=== PATIENT | male | born 1935 | race Caucasian/White ===

== ENCOUNTER 2019-01-28 07:58 | Day surgery (SDC) | payer MEDICARE, OTHER ==
[2019-01-28] MEDS ORDERED: Sodium Chloride 0.9% 1,000 ML IV SCH (08:15)
[2019-01-28] MEDS ORDERED: Moxifloxacin 0.5% Ophth Soln 3 ML Bottle EYELF SCH (08:15)
[2019-01-28] MEDS ORDERED: Sodium Chloride 0.9% 10 ML Syringe FLUSH PRN (08:15)
[2019-01-28] MEDS: Phenylephrine 10% Ophth Soln 5 ML Bot EYELF SCH ×3 (08:19→08:43)
[2019-01-28] MEDS: Cyclopentolate 1% Opth Soln 2 ML Bottle EYELF SCH ×3 (08:25→08:49)
[2019-01-28] MEDS ORDERED: Balanced Salt Solution Ophth Irrig 15 ML Bottle EYELF ONE (09:40)
[2019-01-28] MEDS ORDERED: Water For Irrigation,Sterile 1,500 ML Container IRR ONE (09:40)
[2019-01-28] MEDS ORDERED: EPINEPHrine 1 MG/ML SDV ONE (09:41)
[2019-01-28] MEDS ORDERED: Dexamethasone/Neomycin/Polymyxin B Ophth Oint 3.5 GM Tube EYELF ONE (09:41)
[2019-01-28] MEDS ORDERED: Carbachol 0.01% Intraocular 1.5 ML Vial EYELF ONE (09:41)
[2019-01-28] MEDS ORDERED: Balanced Salt Solution Plus Ophth Irrig 500 ML Bottle IOCULAR ONE (09:41)
[2019-01-28] MEDS ORDERED: Lidocaine 1% 10 ML MDV INJECT ONE (09:42)
[2019-01-28] MEDS ORDERED: Lidocaine 2% with EPINEPHrine 1:100,000 20 ML MDV INJECT ONE (09:42)
[2019-01-28] MEDS ORDERED: Tetracaine HCl/PF 0.5% 4 ML Bottle EYEBOTH ONE (09:43)
[2019-01-28] MEDS ORDERED: Hyaluronate Sodium 1% 0.85 ML Syringe IOCULAR ONE (09:43)
[2019-01-28 10:04] VITALS: BP 146/69
--- NOTE | 2019-01-29 10:07 | OR ---
DATE OF SURGERY: 01/28/2019 SURGEON: Kahlil Best MD PREOPERATIVE DIAGNOSIS: Cataract, left eye. POSTOPERATIVE DIAGNOSIS: Cataract, left eye. OPERATION PERFORMED: Phacoemulsification with posterior chamber lens insertion, left eye. HISTORY: The patient presents at this time with an increasing amount of difficulty seeing to drive. The vision for the left eye is 20/80 -1. The left lens has a 3+ nuclear sclerosis with 2+ posterior subcapsular cataract and a 2+ cortical change. This eye has a combined cataract and a cataract of aging. FINDINGS: The patient was taken to the operating room where appropriate anesthesia, sedation and monitoring were provided. A retrobulbar block was given on the left side. The eye was massaged and was found to be appropriately soft. The eye and eyelids were then prepped and draped in the usual sterile manner. A lid speculum was placed. A micro sharp blade was used to enter the anterior chamber inside the limbus inferior-temporally. Xylocaine was irrigated into the eye at this site. Healon was irrigated into the eye through this site. Then using a 2.85 mm corneal blade an entry was made into the anterior chamber just inside the limbus temporally. Healon was again irrigated into the eye. Then using a cystitome, the anterior capsulorrhexis was created. The lens nucleus was hydrodissected using a 27 gauge cannula and balanced salt solution. The phacoemulsification unit was introduced through the temporal site and the Stef spatula through the inferior temporal site. In so doing, the lens nucleus was phacoemulsified. The cortical fragments of the lens were removed using the irrigation aspiration unit. The posterior capsule was polished. Healon was irrigated into the eye. The posterior chamber lens was inserted and rotated into position inside the capsular bag. The Healon was irrigated out of the eye. Miostat was irrigated into the eye and the pupil rounded nicely. A single interrupted 10-0 Nylon suture was placed through the temporal corneal incision site. Balanced salt solution was irrigated into the eye. The wound was tested and found to be tight. Maxitrol ointment was placed into the patient's left eye. The eyelids were closed and an eye patch and weller shield were placed. The patient left the operating room in good condition. /[id number]/MODL
== END 2019-01-28 10:25 | disposition home or self-care (01) ==
LOC: KA.SDS 07:58
PROVIDERS: ATTEND Ophthalmology
DX: H25.812 Combined forms of age-related cataract, left eye (principal); E11.42 Type 2 diabetes mellitus with diabetic polyneuropathy; I12.9 Hypertensive chronic kidney disease with stage 1 through stage 4 chronic kidney disease, or unspecified chronic kidney disease; E11.22 Type 2 diabetes mellitus with diabetic chronic kidney disease; N18.3 Chronic kidney disease, stage 3 (moderate); E66.9 Obesity, unspecified; Z68.29 Body mass index [BMI] 29.0-29.9, adult; E78.5 Hyperlipidemia, unspecified; I25.10 Atherosclerotic heart disease of native coronary artery without angina pectoris; Z79.82 Long term (current) use of aspirin; Z79.899 Other long term (current) drug therapy; Z87.891 Personal history of nicotine dependence
CPT/HCPCS: 00142; 82962; A9270-GY; C1780; J0171; J2001; J7030

== ENCOUNTER 2019-07-01 06:02 | Day surgery (SDC) | payer MEDICARE, OTHER ==
[~2019-07-01 06:02] MED LIST: Moxifloxacin 0.5% Ophth Soln 3 ML Bottle EYELF SCH; Moxifloxacin 0.5% Ophth Soln 3 ML Bottle EYERT ONE; Sodium Chloride 0.9% 10 ML Syringe FLUSH PRN
[2019-07-01] MEDS: Phenylephrine 10% Ophth Soln 5 ML Bot EYERT SCH ×3 (06:16→06:47)
[2019-07-01] MEDS: Cyclopentolate 1% Opth Soln 2 ML Bottle EYERT SCH ×3 (06:21→06:52)
[2019-07-01] MEDS ORDERED: Sodium Chloride 0.9% 1,000 ML IV SCH (06:30)
[2019-07-01] MEDS ORDERED: Water For Irrigation,Sterile 1,500 ML Container IRR ONE (08:04)
[2019-07-01] MEDS ORDERED: Balanced Salt Solution Ophth Irrig 15 ML Bottle EYERT ONE (08:05)
[2019-07-01] MEDS ORDERED: Dexamethasone/Neomycin/Polymyxin B Ophth Oint 3.5 GM Tube EYERT ONE (08:05)
[2019-07-01] MEDS ORDERED: Balanced Salt Solution Plus Ophth Irrig 500 ML Bottle IOCULAR ONE (08:05)
[2019-07-01] MEDS ORDERED: Carbachol 0.01% Intraocular 1.5 ML Vial EYERT ONE (08:05)
[2019-07-01] MEDS ORDERED: EPINEPHrine 1 MG/1 ML Amp ONE (08:06)
[2019-07-01] MEDS ORDERED: Lidocaine 1% 10 ML MDV INJECT ONE (08:06)
[2019-07-01] MEDS ORDERED: Hyaluronate Sodium 1% 0.85 ML Syringe IOCULAR ONE ×2 (08:06)
[2019-07-01] MEDS ORDERED: Lidocaine 2% with EPINEPHrine 1:100,000 20 ML MDV INJECT ONE (08:06)
[2019-07-01] MEDS ORDERED: Tetracaine HCl/PF 0.5% 4 ML Bottle EYEBOTH ONE (08:06)
[2019-07-01 08:55] VITALS: BP 125/61; PULSE 66
--- NOTE | 2019-07-01 16:04 | OR ---
DATE OF SURGERY: 07/01/2019 SURGEON: Kahlil Best MD PREOPERATIVE DIAGNOSIS: Cataract, right eye. POSTOPERATIVE DIAGNOSIS: Cataract, right eye. OPERATION PERFORMED: Phacoemulsification with posterior chamber lens insertion, right eye. HISTORY: The patient presents at this time with an increasing amount of difficulty using the right eye as he attempts to read. The vision in the right eye is 22/100. The right lens has a 3+ nuclear sclerosis, a 2+ posterior subcapsular cataract, and a 2+ cortical change. This eye has a combined cataract and a cataract of aging. FINDINGS: The patient was taken to the operating room where appropriate anesthesia, sedation and monitoring were provided. A retrobulbar block was given on the right side. The eye was massaged and was found to be appropriately soft. The eye and eyelids were then prepped and draped in the usual sterile manner. A lid speculum was placed. A micro sharp blade was used to enter the anterior chamber inside the limbus superior-temporally. Xylocaine was irrigated into the eye at this site. Healon was irrigated into the eye through this site. Then using a 2.85 mm corneal blade an entry was made into the anterior chamber just inside the limbus temporally. Healon was again irrigated into the eye. Then using a cystitome, the anterior capsulorrhexis was created. The lens nucleus was hydrodissected using a 27 gauge cannula and balanced salt solution. The phacoemulsification unit was introduced through the temporal site and the Stef spatula through the superior temporal site. In so doing, the lens nucleus was phacoemulsified. The cortical fragments of the lens were removed using the irrigation aspiration unit. The posterior capsule was polished. Healon was irrigated into the eye. The posterior chamber lens was inserted and rotated into position inside the capsular bag. The Healon was irrigated out of the eye. Miostat was irrigated into the eye and the pupil rounded nicely. A single interrupted 10-0 nylon suture was placed through the temporal corneal incision site and an additional interrupted 10-0 nylon suture was placed through the superotemporal incision site. Balanced salt solution was irrigated into the eye. The wound was tested and found to be tight. Maxitrol ointment was placed into the patient's right eye. The eyelids were closed and an eye patch and weller shield were placed. The patient left the operating room in good condition. /[id number]/MODL
[2019-07-02] MEDS ORDERED: Sodium Chloride 0.9% 1,000 ML IV SCH (06:00)
== END 2019-07-01 09:03 | disposition home or self-care (01) ==
LOC: KA.SDS 06:02
PROVIDERS: ATTEND Ophthalmology
DX: E11.36 Type 2 diabetes mellitus with diabetic cataract (principal); H25.811 Combined forms of age-related cataract, right eye; E11.42 Type 2 diabetes mellitus with diabetic polyneuropathy; I25.10 Atherosclerotic heart disease of native coronary artery without angina pectoris; I25.2 Old myocardial infarction; I12.9 Hypertensive chronic kidney disease with stage 1 through stage 4 chronic kidney disease, or unspecified chronic kidney disease; E11.22 Type 2 diabetes mellitus with diabetic chronic kidney disease; N18.3 Chronic kidney disease, stage 3 (moderate); N40.1 Benign prostatic hyperplasia with lower urinary tract symptoms; N13.8 Other obstructive and reflux uropathy; E78.49 Other hyperlipidemia; E66.9 Obesity, unspecified; Z68.27 Body mass index [BMI] 27.0-27.9, adult; Z87.891 Personal history of nicotine dependence; Z79.4 Long term (current) use of insulin; Z79.51 Long term (current) use of inhaled steroids; Z79.82 Long term (current) use of aspirin; Z79.899 Other long term (current) drug therapy
CPT/HCPCS: 00142; 66984; 82962; A9270; J0171; J2001; J7030; V2632

== ENCOUNTER 2020-11-29 07:52 | Day surgery (SDC) | payer MEDICARE, OTHER ==
[2020-11-29] MEDS: Sodium Chloride 0.9% 1,000 ML IV SCH (08:15)
[2020-11-29] MEDS: 50% Dextrose in Water 50 ML Syringe IVPUSH ONE (08:32)
[2020-11-29] MEDS: Sodium Chloride 0.9% 10 ML Syringe FLUSH PRN (08:33)
[2020-11-29] MEDS ORDERED: Propofol 200 MG/20 ML SDV ONE (08:54)
--- NOTE | 2020-11-29 10:37 | PCM.PRNOTE ---
- Free Text/Narrative Note: PROCEDURE PERFORMED: Colonoscopy with biopsy PRE-PROCEDURE DIAGNOSIS/INDICATION FOR PROCEDURE: Chronic diarrhea, +FOBT, +calprotectin CONSENT: Informed consent was obtained prior to the procedure after discussion of the risks (including pain, bleeding, infection, perforation, missed polyps, inability to completely remove polyps or complete procedure necessitating repeat colonoscopy, adverse reaction to anesthesia, cardiovascular event), benefits and alternatives and expected outcomes. The patient expressed understanding and wished to proceed. Verbal consent given and consent form signed. PROCEDURAL PAUSE: Completed SEDATION: Per anesthesia DESCRIPTION OF PROCEDURE: Patient was placed in the left lateral decubitus position. After adequate sedation and anesthetic was administered, a rectal exam was performed revealing poor sphincter tone, but no other overt abnormalities. A lubricated Olympus Vid eo Colonoscope was inserted into the rectum and air insufflation was performed. The colonoscope was advanced through the rectum, sigmoid, descending, transverse, and ascending colon without complication, but with some difficulty in the sigmoid colon due to numerous diverticula and moderate retained stool. The cecum was reached and the ileocecal valve as well as the appendiceal orifice were identified and pictorially documented. After adequate visualization of the cecum, the scope was withdrawn, giving 360-degree views of the colonic mucosa and retroflexion was performed in the rectum with the following findings noted: Ileocecal valve: Normal Cecum: One <5mm polyp completely removed with cold snare Ascending colon / Hepatic flexure: One 5mm polyp at 85cm completely removed with hot snare; Moderately inflamed mucosa, which was biopsied in multiple locations with cold forceps Transverse colon: One 5mm polyp at 80cm completely removed with hot snare Splenic flexure: Normal Descending colon: Mildly inflamed mucosa, which was biopsied in multiple locations with cold forceps Sigmoid colon: Moderate-severe diverticulosis without overt evidence of inflammation or bleeding Rectum: Mildly inflamed mucosa, which was biopsied in multiple locations with cold forceps All polypectomy and biopsy sites were noted to have subsequent hemostasis. The scope was straightened, air suction performed, and the scope withdrawn without complication. Preparation adequacy [place] Bowel Prep 06/03. IMPRESSION: Colonoscopy performed revealing: - Three polyps as detailed above, with pathology pending - Colitis, most prominent in the right colon, with pathology pending - Moderate-severe diverticulosis - Mild internal hemorrhoids PLAN: Follow-up with the patient in clinic in 7-10 days to review pathology results and make management plan.
[2020-11-29 11:44] VITALS: BP 141/68; PULSE 57
== END 2020-11-29 12:00 | disposition home or self-care (01) ==
LOC: KA.SDS 07:52
PROVIDERS: ATTEND Family Medicine
DX: K52.9 Noninfective gastroenteritis and colitis, unspecified (principal); D12.0 Benign neoplasm of cecum; D12.2 Benign neoplasm of ascending colon; D12.3 Benign neoplasm of transverse colon; K57.30 Diverticulosis of large intestine without perforation or abscess without bleeding; K64.8 Other hemorrhoids; E11.42 Type 2 diabetes mellitus with diabetic polyneuropathy
CPT/HCPCS: 00811; 82962; 88305; J2704; J7030

== ENCOUNTER 2021-09-18 04:15 | Emergency (ER) | payer MEDICARE, OTHER ==
[2021-09-18] MEDS: Sodium Chloride 0.9% 10 ML Syringe FLUSH PRN (05:07)
--- NOTE | 2021-09-18 05:13 | EDM.PDOC ---
ED HPI GENERAL MEDICAL PROBLEM - General Chief Complaint: General Stated Complaint: fall at home Time Seen by Provider: 09/18/21 04:40 Source of Information: Reports: Patient, Family (son) History Limitations: Reports: No Limitations - History of Present Illness INITIAL COMMENTS - FREE TEXT/NARRATIVE: Chong is a very pleasant 85-year-old male who is seen and evaluated by EMS early this morning after they were called to his new apartment complex when Chong fell earlier this morning going to the bathroom and was unable to get up by himself. He does have a history of diabetes on insulin. His blood sugars were low as well as his blood pressure. They were able to stand him up. He was not complaining of any pain or discomfort. He felt a little lightheaded. Patient states to me that his feet are always numb secondary to his diabetes. He lives in his apartment with his . Son is present upon my arrival in the room. He stated that his dad might be a little exhausted as they recently just moved him into the apartment complex yesterday. His blood sugar upon arrival was 47. Our nurse gave him some orange juice and peanut butter toast which he was eating upon my arrival. He is alert, communicative answers questions appropriately. He denies any pain or discomfort. He denies any shortness of breath or chest pain. He denies any headaches. His O2 saturations are on room air at 92% his respirations are 20. Pulse is 75. Blood pressure currently is 113/59. Nontoxic appearing. Patient did mention today when we are trying to get a urine sample that he has had diarrhea symptoms for the past couple of days. Onset: Today Onset Date: 09/18/21 Onset Time: 03:30 Duration: Minutes:, Resolved Prior to Arrival Location: Reports: Generalized Severity: Mild Improves with: Reports: Rest Worsens with: Reports: None Context: Reports: Other (fall at home) Associated Symptoms: Reports: Weakness, Other. Denies: Confusion, Chest Pain, Nausea/Vomiting, Shortness of Breath, Syncope - Related Data Allergies Allergy/AdvReac Type Severity Reaction Status Date / Time No Known Drug Allergies Allergy Cannot Verified 09/18/21 04:48 Remember Home Meds: Home Meds *Tac Aquaphyllic Urea Cream 0.05% 1 applic TOP BID 01/24/19 [History] Aspirin [Halfprin] 81 mg PO DAILY 01/24/19 [History] Insulin Degludec [Tresiba] 78 unit SQ BEDTIME 01/24/19 [History] Cholecalciferol (Vitamin D3) [Vitamin D3] 1,000 unit PO DAILY 06/27/19 [History] Beta-Carotene(A) w/C & E/Min [Prosight] 1 tab PO DAILY 11/25/20 [History] Cetirizine [ZyrTEC] 5 mg PO DAILY 11/25/20 [History] Dulaglutide [Trulicity] 1.5 mg SUBCUT WEEKLY 11/25/20 [History] Pregabalin [Lyrica] 75 mg PO BID 11/25/20 [History] Simvastatin 10 mg PO DAILY 11/25/20 [History] polyethylene glycoL 3350 [MiraLAX] 17 gm PO DAILY 11/25/20 [History] Past Medical History HEENT History: Reports: Cataract, Macular Degeneration, Other (See Below) 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 Dermatologic History: Reports: Other (See Below) Other Dermatologic History: ATOPIC DERMATITIS - Infectious Disease History Infectious Disease History: Reports: Chicken Pox, Measles - Past Surgical History HEENT Surgical History: Reports: Cataract Surgery, Tonsillectomy, Other (See Below) Other HEENT Surgeries/Procedures: panendoscopy Cardiovascular Surgical History: Reports: None GI Surgical History: Reports: Appendectomy Endocrine Surgical History: Reports: None Neurological Surgical History: Reports: None Musculoskeletal Surgical History: Reports: Shoulder Surgery Social & Family History - Family History Family Medical History: No Pertinent Family History HEENT: Reports: None - Caffeine Use Caffeine Use: Reports: Soda Other Caffeine Use: regular - Living Situation & Occupation Living situation: Reports: ED ROS GENERAL - Review of Systems Review Of Systems: See Below Constitutional: Reports: No Symptoms HEENT: Reports: No Symptoms Respiratory: Reports: No Symptoms Cardiovascular: Reports: No Symptoms Endocrine: Reports: Low Glucose GI/Abdominal: Reports: No Symptoms : Reports: No Symptoms Musculoskeletal: Reports: No Symptoms Skin: Reports: Other (Small skin tear on left elbow) Neurological: Reports: Dizziness, Numbness (Both feet secondary to diabetes), Weakness. Denies: Confusion, Syncope, Change in Speech Psychiatric: Reports: No Symptoms Hematologic/Lymphatic: Reports: No Symptoms Immunologic: Reports: No Symptoms ED EXAM, GENERAL - Physical Exam Exam: See Below Exam Limited By: No Limitations General Appearance: Alert, WD/WN, No Apparent Distress Eye Exam: Bilateral Eye: EOMI Ears: Hearing Grossly Normal Nose: Normal Inspection Throat/Mouth: Normal Inspection, Normal Oropharynx, Normal Voice, No Airway Compromise Head: Atraumatic, Normocephalic Neck: Normal Inspection, Supple, Non-Tender, Full Range of Motion Respiratory/Chest: No Respiratory Distress, Lungs Clear, Normal Breath Sounds, No Accessory Muscle Use, Chest Non-Tender Cardiovascular: Normal Peripheral Pulses, Regular Rate, Rhythm Peripheral Pulses: 2+: Carotid (L), Carotid (R), Radial (L), Radial (R), Dorsalis Pedis (L), Dorsalis Pedis (R) GI/Abdominal: Soft, Non-Tender Back Exam: Normal Inspection Extremities: Normal Inspection, Normal Range of Motion, Non-Tender, No Pedal Edema Neurological: Alert, Oriented, No Motor/Sensory Deficits Psychiatric: Normal Affect, Normal Mood Skin Exam: Warm, Dry, Normal Color, No Rash, Other (small skin tear over the left elbow this is been covered with a Band-Aid) Course - Vital Signs Last Recorded V/S: Last Vital Signs Temp 97.7 F 09/18/21 04:17 Pulse 82 09/18/21 05:45 Resp 14 09/18/21 05:45 BP 118/63 09/18/21 05:45 Pulse Ox 92 L 09/18/21 05:45 - Orders/Labs/Meds Orders: Active Orders 24 hr Category Date Time Status Peripheral IV Care [RC] . DIRECTED Care 09/18/21 05:00 Active Sodium Chloride 0.9% [Normal Saline] 500 ml Med 09/18/21 05:15 Active IV .BOLUS Sodium Chloride 0.9% [Saline Flush] Med 09/18/21 05:00 Active 10 ml FLUSH Q8HR PRN Peripheral IV Insertion Adult [OM.PC] Routine Oth 09/18/21 05:00 Ordered Medication Orders Sodium Chloride (Normal Saline) 500 mls @ 1,000 mls/hr IV .BOLUS SHANTELL Last Admin: 09/18/21 05:14 Dose: 1,000 mls/hr Documented by: KIRAN Sodium Chloride (Sodium Chloride 0.9% 10 Ml Syringe) 10 ml FLUSH Q8HR PRN PRN Reason: keep vein open Last Admin: 09/18/21 05:07 Dose: 10 ml Documented by: KIRAN Labs: Laboratory Tests 09/18/21 09/18/21 09/18/21 Range/Units 04:27 05:07 05:07 WBC 16.80 H (5.00-10.00) 10^3/uL RBC 4.51 (4.50-6.00) 10^6/uL Hgb 13.3 (13.0-17.0) g/dL Hct 40.5 (40.0-52.0) % MCV 89.8 (82.0-92.0) fL MCH 29.5 (27.0-31.0) pg MCHC 32.8 (32.0-36.0) g/dL RDW 13.0 (11.5-14.5) % Plt Count 195 (150-400) 10^3/uL MPV 11.8 H (7.4-10.4) fL Immature Gran % (Auto) 0.2 (0.0-5.0) % Neut % (Auto) 74.3 H (50.0-70.0) % Lymph % (Auto) 11.8 L (20.0-40.0) % [place] % (Auto) 10.4 H (2.0-8.0) % Eos % (Auto) 3.2 H (1.0-3.0) % Baso % (Auto) 0.1 (0.0-1.0) % Neut # (Auto) 12.49 H (2.50-7.00) 10^3/uL Lymph # (Auto) 1.98 (1.00-4.00) 10^3/uL Mobile # (Auto) 1.74 H (0.10-0.80) 10^3/uL Eos # (Auto) 0.54 H (0.10-0.30) 10^3/uL Baso # (Auto) 0.02 (0.00-0.10) 10^3/uL Immature Gran # (Auto) 0.03 (0.00-0.50) 10^3/uL Sodium 145 (136-145) mmol/L Potassium 3.8 (3.5-5.1) mmol/L Chloride 108 H (98-107) mmol/L Carbon Dioxide 24.6 (21.0-32.0) mmol/L Anion Gap 16.2 H (5-15) mmol/L BUN 33 H (7-18) mg/dL Creatinine 1.44 H (0.51-1.17) mg/dL Est Cr Clr Drug Dosing 38.49 mL/min Estimated GFR (MDRD) 46 mL/min Glucose 77 (70-140) mg/dL POC Glucose 47 L (70-140) mg/dL Calcium 8.4 L (8.7-10.3) mg/dL Specimen Type Urine Color (YELLOW) Urine Appearance (CLEAR) Urine pH (5.0-9.0) Ur Specific [place] (1.005-1.030) Urine Protein (NEGATIVE) mg/dL Urine Glucose (UA) (NEGATIVE) mg/dL Urine Ketones (NEGATIVE) mg/dL Urine Occult Blood (NEGATIVE) Urine Nitrite (NEGATIVE) Urine Bilirubin (NEGATIVE) Urine Urobilinogen (0.2-1.0) E.U./dL Ur Leukocyte Esterase (NEGATIVE) Urine RBC (0-5) /HPF Urine WBC (0-5) /HPF Ur Epithelial Cells /LPF Urine Bacteria (NONE TO FEW) /HPF 09/18/21 09/18/21 Range/Units 06:10 06:24 WBC (5.00-10.00) 10^3/uL RBC (4.50-6.00) 10^6/uL Hgb (13.0-17.0) g/dL Hct (40.0-52.0) % MCV (82.0-92.0) fL MCH (27.0-31.0) pg MCHC (32.0-36.0) g/dL RDW (11.5-14.5) % Plt Count (150-400) 10^3/uL MPV (7.4-10.4) fL Immature Gran % (Auto) (0.0-5.0) % Neut % (Auto) (50.0-70.0) % Lymph % (Auto) (20.0-40.0) % Mobile % (Auto) (2.0-8.0) % Eos % (Auto) (1.0-3.0) % Baso % (Auto) (0.0-1.0) % Neut # (Auto) (2.50-7.00) 10^3/uL Lymph # (Auto) (1.00-4.00) 10^3/uL Mobile # (Auto) (0.10-0.80) 10^3/uL Eos # (Auto) (0.10-0.30) 10^3/uL Baso # (Auto) (0.00-0.10) 10^3/uL Immature Gran # (Auto) (0.00-0.50) 10^3/uL Sodium (136-145) mmol/L Potassium (3.5-5.1) mmol/L Chloride (98-107) mmol/L Carbon Dioxide (21.0-32.0) mmol/L Anion Gap (5-15) mmol/L BUN (7-18) mg/dL Creatinine (0.51-1.17) mg/dL Est Cr Clr Drug Dosing mL/min Estimated GFR (MDRD) mL/min Glucose (70-140) mg/dL POC Glucose 99 (70-140) mg/dL Calcium (8.7-10.3) mg/dL Specimen Type Urincc Urine Color Yellow (YELLOW) Urine Appearance Clear (CLEAR) Urine pH 5.0 (5.0-9.0) Ur Specific [place] 1.025 (1.005-1.030) Urine Protein Trace H (NEGATIVE) mg/dL Urine Glucose (UA) Negative (NEGATIVE) mg/dL Urine Ketones Negative (NEGATIVE) mg/dL Urine Occult Blood Negative (NEGATIVE) Urine Nitrite Negative (NEGATIVE) Urine Bilirubin Negative (NEGATIVE) Urine Urobilinogen 0.2 (0.2-1.0) E.U./dL Ur Leukocyte Esterase Negative (NEGATIVE) Urine RBC Not seen (0-5) /HPF Urine WBC 0-5 (0-5) /HPF Ur Epithelial Cells Occasional /LPF Urine Bacteria Rare (NONE TO FEW) /HPF Meds: Medications Generic Name Dose Route Start Last Admin Trade Name Юлия PRN Reason Stop Dose Admin Sodium Chloride 500 mls @ 1,000 mls/hr 09/18/21 05:15 09/18/21 05:14 Normal Saline IV 1,000 mls/hr .BOLUS SHANTELL Administration Sodium Chloride 10 ml 09/18/21 05:00 09/18/21 05:07 Sodium Chloride 0.9% 10 Ml Syringe FLUSH 10 ml Q8HR PRN Administration keep vein open Discontinued Medications Generic Name Dose Route Start Last Admin Trade Name Freq PRN Reason Stop Dose Admin Metronidazole 1,000 mg 09/18/21 06:39 Metronidazole 500 Mg Tab PO 09/18/21 06:40 ONETIME ONE - Re-Assessments/Exams Free Text/Narrative Re-Assessment/Exam: 09/18/21 05:20 Patient is eating peanut butter toast and orange juice upon my arrival. IV bolus of 500 mL normal saline was started. Departure - Departure Time of Disposition: 07:00 Disposition: Home, Self-Care 01 Condition: Good Clinical Impression: Neutrophilic leukocytosis, Hypoglycemic event in diabetes Diarrhea Qualifiers: Diarrhea type: unspecified type Qualified Code(s): R19.7 - Diarrhea, unspecified - Discharge Information Instructions: Diarrhea, Adult, Viral Gastroenteritis, Adult Referrals: Ashley Rene NP [Primary Care Provider] - Forms: ED Department Discharge Care Plan Goals: 1. Flagyl 500 mg twice daily for 7 days 2. Encourage to drink plenty of fluids. 3. Would like a follow-up appointment with primary care, Ashley Rene NP this week. Make sure patient's white count is coming down. Sepsis Event Note (ED) - Evaluation Sepsis Screening Result: No Definite Risk - Focused Exam Vital Signs: Vital Signs Temp Pulse Resp BP Pulse Ox 09/18/21 05:45 82 14 118/63 92 L 09/18/21 05:30 81 15 123/63 92 L 09/18/21 05:15 74 16 113/59 L 90 L 09/18/21 05:00 77 16 108/62 93 L 09/18/21 04:45 79 19 108/59 L 90 L 09/18/21 04:30 75 18 107/58 L 90 L 09/18/21 04:17 97.7 F 76 19 106/60 91 L - My Orders Last 24 Hours: My Active Orders 09/18/21 05:00 Peripheral IV Care [RC] . DIRECTED Sodium Chloride 0.9% [Saline Flush] 10 ml FLUSH Q8HR PRN Peripheral IV Insertion Adult [OM.PC] Routine 09/18/21 05:15 Sodium Chloride 0.9% [Normal Saline] 500 ml IV .BOLUS - Assessment/Plan Last 24 Hours: My Active Orders 09/18/21 05:00 Peripheral IV Care [RC] . DIRECTED Sodium Chloride 0.9% [Saline Flush] 10 ml FLUSH Q8HR PRN Peripheral IV Insertion Adult [OM.PC] Routine 09/18/21 05:15 Sodium Chloride 0.9% [Normal Saline] 500 ml IV .BOLUS Assessment:: Diarrhea Leukocytosis, neutrophilic [employer] low blood sugar Plan: 1. Flagyl 500 mg twice daily for 7 days 2. Encourage to drink plenty of fluids. 3. Would like a follow-up appointment with primary care, Ashley Rene NP this week. Make sure patient's white count is coming down.
[2021-09-18] MEDS: Sodium Chloride 0.9% 500 ML IV SCH (05:14)
[2021-09-18 05:48] LABS: ANION GAP 16.2 mmol/L (5-15)
[2021-09-18 06:37] VITALS: BP 118/63; PULSE 82
[2021-09-18] MEDS: metroNIDAZOLE 500 MG Tab PO ONE (06:44)
== END 2021-09-18 07:05 | disposition home or self-care (01) ==
LOC: KA.ED 04:15
DX: S51.012A Laceration without foreign body of left elbow, initial encounter (principal); E11.649 Type 2 diabetes mellitus with hypoglycemia without coma; D72.828 Other elevated white blood cell count; R19.7 Diarrhea, unspecified; I25.10 Atherosclerotic heart disease of native coronary artery without angina pectoris; E78.00 Pure hypercholesterolemia, unspecified; I12.9 Hypertensive chronic kidney disease with stage 1 through stage 4 chronic kidney disease, or unspecified chronic kidney disease; E11.22 Type 2 diabetes mellitus with diabetic chronic kidney disease; N18.30 Chronic kidney disease, stage 3 unspecified; I25.2 Old myocardial infarction; E11.42 Type 2 diabetes mellitus with diabetic polyneuropathy; E66.9 Obesity, unspecified; Z68.26 Body mass index [BMI] 26.0-26.9, adult; Z79.4 Long term (current) use of insulin; Z79.82 Long term (current) use of aspirin; Z79.899 Other long term (current) drug therapy; W18.30XA Fall on same level, unspecified, initial encounter; Y92.009 Unspecified place in unspecified non-institutional (private) residence as the place of occurrence of the external cause
CPT/HCPCS: 36415; 80048; 81001; 82947; 85025; 99284; 99285; A9270-GY; J7040

== ENCOUNTER 2021-10-07 05:59 | Emergency (ER) | payer MEDICARE, OTHER ==
[2021-10-07] MEDS ORDERED: Sodium Chloride 0.9% 10 ML Syringe FLUSH PRN (06:20)
[2021-10-07] MEDS ORDERED: Sodium Chloride 0.9% 1,000 ML IV SCH (06:30)
--- NOTE | 2021-10-07 06:36 | EDM.PDOC ---
ED HPI GENERAL MEDICAL PROBLEM - General Chief Complaint: General Stated Complaint: fall Time Seen by Provider: 10/07/21 06:36 Source of Information: Reports: Patient, EMS - History of Present Illness INITIAL COMMENTS - FREE TEXT/NARRATIVE: Chong, 85-year-old male, presents to the emergency department by the [place] [facility] today after he had fallen into the bathtub and was unable to get up on his own. He states he has no specific complaints but was brought here via their decision. States he is now living in an apartment since the end of last month and has not adjusted to it completely. When asked [place] he states "they told me it was time". He tells us that he felt the urge to go to the bathroom but could not not get out of bed and had to call his Danii to assist him as he states he was unable to rollover. After she assisted him up he was able to ambulate to the bathroom and on his return fell into the bathtub. He is uncertain if it was dizziness but states this happens on occasion. It was noted he was here on 18 September for a fall that the family attributed to being tired as they had just finished moving the day before into this apartment in [place]. He did follow-up in clinic the week after. He denies any illness other than occasional cough, Unsure if he struck his head. 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 Onset: Today - Related Data Allergies Allergy/AdvReac Type Severity Reaction Status Date / Time No Known Drug Allergies Allergy Cannot Verified 10/07/21 06:10 Remember Home Meds: Home Meds Aspirin [Halfprin] 81 mg PO DAILY 01/24/19 [History] Insulin Degludec [Tresiba] 84 unit SQ DAILY 01/24/19 [History] Cholecalciferol (Vitamin D3) [Vitamin D3] 1,000 unit PO DAILY 06/27/19 [History] Dulaglutide [Trulicity] 1.5 mg SUBCUT WEEKLY 11/25/20 [History] Pregabalin [Lyrica] 75 mg PO BID 11/25/20 [History] Beta-Carotene(A) w/C & E/Min [Prosight] 1 tab PO DAILY 09/18/21 [History] Insulin Aspart [Insulin Aspart Flexpen] 6 unit SQ BIDAC 09/18/21 [History] Loperamide HCl [Imodium A-D] 1 tab PO BID PRN 09/18/21 [History] Simvastatin [Zocor] 40 mg PO BEDTIME 09/18/21 [History] Past Medical History HEENT History: Reports: Cataract, Macular Degeneration, Other (See Below) 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 Dermatologic History: Reports: Other (See Below) Other Dermatologic History: ATOPIC DERMATITIS - Infectious Disease History Infectious Disease History: Reports: Chicken Pox, Measles - Past Surgical History HEENT Surgical History: Reports: Cataract Surgery, Tonsillectomy, Other (See Below) Other HEENT Surgeries/Procedures: panendoscopy Cardiovascular Surgical History: Reports: None GI Surgical History: Reports: Appendectomy Endocrine Surgical History: Reports: None Neurological Surgical History: Reports: None Musculoskeletal Surgical History: Reports: Shoulder Surgery Social & Family History - Family History Family Medical History: No Pertinent Family History HEENT: Reports: None - Caffeine Use Caffeine Use: Reports: Soda Other Caffeine Use: regular - Living Situation & Occupation Living situation: Reports: ED ROS GENERAL - Review of Systems Review Of Systems: Comprehensive ROS is negative, except as noted in HPI. ED EXAM, GENERAL - Physical Exam Exam: See Below Free Text/Narrative:: Alert and fairly oriented aware that it was recently and that is upcoming. Cannot tell me the exact date but does know it is September. Cannot specifically tell us incident occurrence other than he is weakness limited him getting out of bed to go to the bathroom and attributed to him not being able to get up from the bathtub after he had fallen. PERRLA no icterus no injection. Cerumen in the canals with no evidence of infection. I do not appreciate any significant contusion or extreme point tenderness to palpation of the scalp. There is no tenderness to palpation of the neck with negative Nexus criteria. Neck is soft supple with no lymphadenopathy, no JVD, I do not appreciate bruit. Thorax is overall clear mildly diminished to the right base, no wheezes nor crackles are noted. Cardiac regular I do not appreciate any murmur. Abdomen is soft bowel sounds are present there is no organomegaly appreciated, no tenderness to palpation.. Lower extremities are free of edema sensation is reduced to palpation. Skin is warm and dry. Able to move the upper extremities with no apparent deficits in motion nor strength in comparison. #1 Interpretation EKG Date: 10/07/21 Time: 07:28 Rhythm: NSR Blanchard: Normal QRS: RBBB ST-T: Normal QT: Normal Comparison: NA - No Prior EKG Course - Vital Signs Last Recorded V/S: Last Vital Signs Temp 99.4 F 10/07/21 08:00 Pulse 70 10/07/21 08:00 Resp 22 H 10/07/21 08:00 BP 112/60 10/07/21 08:00 Pulse Ox 92 L 10/07/21 08:00 - Orders/Labs/Meds Orders: Active Orders 24 hr Category Date Time Status Oxygen Therapy [RC] PRN Care 10/07/21 06:21 Active Peripheral IV Care [RC] . DIRECTED Care 10/07/21 06:22 Active CULTURE BLOOD [BC] Stat Lab 10/07/21 06:27 Ordered CULTURE BLOOD [BC] Stat Lab 10/07/21 06:30 Received Sodium Chloride 0.9% [Normal Saline] 1,000 ml Med 10/07/21 06:30 Active IV .BOLUS Sodium Chloride 0.9% [Saline Flush] Med 10/07/21 06:20 Active 10 ml FLUSH Q8HR PRN Blood Culture x2 Reflex Set [OM.PC] Stat Oth 10/07/21 06:26 Ordered Peripheral IV Insertion Adult [OM.PC] Stat Oth 10/07/21 06:20 Ordered EKG 12 Lead [EK] Stat Ther 10/07/21 07:10 Ordered Medication Orders Sodium Chloride (Normal Saline) 1,000 mls @ 999 mls/hr IV .BOLUS SHANTELL Last Admin: 10/07/21 06:45 Dose: 999 mls/hr Documented by: CALESIL Sodium Chloride (Sodium Chloride 0.9% 10 Ml Syringe) 10 ml FLUSH Q8HR PRN PRN Reason: keep vein open Labs: Laboratory Tests 10/07/21 10/07/21 10/07/21 Range/Units 06:30 06:30 06:30 WBC 17.69 H (5.00-10.00) 10^3/uL RBC 4.33 L (4.50-6.00) 10^6/uL Hgb 12.8 L (13.0-17.0) g/dL Hct 38.8 L (40.0-52.0) % MCV 89.6 (82.0-92.0) fL MCH 29.6 (27.0-31.0) pg MCHC 33.0 (32.0-36.0) g/dL RDW 13.0 (11.5-14.5) % Plt Count 191 (150-400) 10^3/uL MPV 11.8 H (7.4-10.4) fL Immature Gran % (Auto) 0.5 (0.0-5.0) % Neut % (Auto) 74.1 H (50.0-70.0) % Lymph % (Auto) 12.4 L (20.0-40.0) % Dane % (Auto) 12.5 H (2.0-8.0) % Eos % (Auto) 0.3 L (1.0-3.0) % Baso % (Auto) 0.2 (0.0-1.0) % Neut # (Auto) 13.12 H (2.50-7.00) 10^3/uL Lymph # (Auto) 2.19 (1.00-4.00) 10^3/uL Dane # (Auto) 2.21 H (0.10-0.80) 10^3/uL Eos # (Auto) 0.06 L (0.10-0.30) 10^3/uL Baso # (Auto) 0.03 (0.00-0.10) 10^3/uL Immature Gran # (Auto) 0.08 (0.00-0.50) 10^3/uL Sodium (136-145) mmol/L Potassium (3.5-5.1) mmol/L Chloride (98-107) mmol/L Carbon Dioxide (21.0-32.0) mmol/L Anion Gap (5-15) mmol/L BUN (7-18) mg/dL Creatinine (0.51-1.17) mg/dL Est Cr Clr Drug Dosing mL/min Estimated GFR (MDRD) mL/min Glucose (70-140) mg/dL Lactic Acid 0.8 (0.4-2.0) mmol/L Calcium (8.7-10.3) mg/dL Total Bilirubin (0.2-1.0) mg/dL AST (15-37) U/L ALT (14-63) U/L Alkaline Phosphatase (46-116) U/L Creatine Kinase 203 (26-276) U/L Troponin I High Sens 21.400 (0-76.000) pg/mL Total Protein (6.4-8.2) g/dL Albumin (3.40-5.00) g/dL Specimen Type Urine Color (YELLOW) Urine Appearance (CLEAR) Urine pH (5.0-9.0) Ur Specific [place] (1.005-1.030) Urine Protein (NEGATIVE) mg/dL Urine Glucose (UA) (NEGATIVE) mg/dL Urine Ketones (NEGATIVE) mg/dL Urine Occult Blood (NEGATIVE) Urine Nitrite (NEGATIVE) Urine Bilirubin (NEGATIVE) Urine Urobilinogen (0.2-1.0) E.U./dL Ur Leukocyte Esterase (NEGATIVE) Urine RBC (0-5) /HPF Urine WBC (0-5) /HPF Ur Epithelial Cells /LPF Urine Bacteria (NONE TO FEW) /HPF Granular Casts (Auto) Influenza Type A RNA (NEGATIVE) Influenza Type B RNA (NEGATIVE) SARS-CoV-2 RNA (BUCK) (NEGATIVE) 10/07/21 10/07/21 10/07/21 Range/Units 06:30 07:20 08:40 WBC (5.00-10.00) 10^3/uL RBC (4.50-6.00) 10^6/uL Hgb (13.0-17.0) g/dL Hct (40.0-52.0) % MCV (82.0-92.0) fL MCH (27.0-31.0) pg MCHC (32.0-36.0) g/dL RDW (11.5-14.5) % Plt Count (150-400) 10^3/uL MPV (7.4-10.4) fL Immature Gran % (Auto) (0.0-5.0) % Neut % (Auto) (50.0-70.0) % Lymph % (Auto) (20.0-40.0) % Dane % (Auto) (2.0-8.0) % Eos % (Auto) (1.0-3.0) % Baso % (Auto) (0.0-1.0) % Neut # (Auto) (2.50-7.00) 10^3/uL Lymph # (Auto) (1.00-4.00) 10^3/uL Dane # (Auto) (0.10-0.80) 10^3/uL Eos # (Auto) (0.10-0.30) 10^3/uL Baso # (Auto) (0.00-0.10) 10^3/uL Immature Gran # (Auto) (0.00-0.50) 10^3/uL Sodium 142 (136-145) mmol/L Potassium 3.9 (3.5-5.1) mmol/L Chloride 104 (98-107) mmol/L Carbon Dioxide 24.7 (21.0-32.0) mmol/L Anion Gap 17.2 H (5-15) mmol/L BUN 26 H (7-18) mg/dL Creatinine 1.47 H (0.51-1.17) mg/dL Est Cr Clr Drug Dosing 37.71 mL/min Estimated GFR (MDRD) 45 mL/min Glucose 69 L (70-140) mg/dL Lactic Acid (0.4-2.0) mmol/L Calcium 8.3 L (8.7-10.3) mg/dL Total Bilirubin 0.8 (0.2-1.0) mg/dL AST 22 (15-37) U/L ALT 21 (14-63) U/L Alkaline Phosphatase 65 (46-116) U/L Creatine Kinase (26-276) U/L Troponin I High Sens (0-76.000) pg/mL Total Protein 7.3 (6.4-8.2) g/dL Albumin 2.93 L (3.40-5.00) g/dL Specimen Type Urincath Urine Color Yellow (YELLOW) Urine Appearance Clear (CLEAR) Urine pH 5.5 (5.0-9.0) Ur Specific [place] 1.020 (1.005-1.030) Urine Protein 100 H (NEGATIVE) mg/dL Urine Glucose (UA) 250 H (NEGATIVE) mg/dL Urine Ketones Negative (NEGATIVE) mg/dL Urine Occult Blood Small H (NEGATIVE) Urine Nitrite Negative (NEGATIVE) Urine Bilirubin Negative (NEGATIVE) Urine Urobilinogen 0.2 (0.2-1.0) E.U./dL Ur Leukocyte Esterase Negative (NEGATIVE) Urine RBC Not seen (0-5) /HPF Urine WBC 5-10 H (0-5) /HPF Ur Epithelial Cells Few /LPF Urine Bacteria Rare (NONE TO FEW) /HPF Granular Casts (Auto) Few Influenza Type A RNA Negative (NEGATIVE) Influenza Type B RNA Negative (NEGATIVE) SARS-CoV-2 RNA (BUCK) Negative (NEGATIVE) Meds: Medications Generic Name Dose Route Start Last Admin Trade Name Freq PRN Reason Stop Dose Admin Sodium Chloride 1,000 mls @ 999 mls/hr 10/07/21 06:30 10/07/21 06:45 Normal Saline IV 999 mls/hr .BOLUS SHANTELL Administration Sodium Chloride 10 ml 10/07/21 06:20 Sodium Chloride 0.9% 10 Ml Syringe FLUSH Q8HR PRN keep vein open - Re-Assessments/Exams Free Text/Narrative Re-Assessment/Exam: 10/07/21 08:55 900 mL urine via straight cath. No findings of infection on chest x-ray and normal CT of the brain. Discussed with Cristina Mercedes as no pertinent findings for admission and it appears his cognitive function is at baseline. She acknowledges previous white count that improved but did not have a normal white count verified as he had not needed return after his post ER visit from the . We did discuss with no findings of infection that he would follow-up with repeat lab work on Sunday to determine if a blood dyscrasia is forming or if it is a true infectious process. 10/07/21 08:58 10/07/21 09:28 Departure - Departure Time of Disposition: 09:26 Disposition: Home, Self-Care 01 Condition: Fair Clinical Impression: COVID-19 ruled out by laboratory testing, Diabetes, Weakness, Fever, Fall - Discharge Information *PRESCRIPTION DRUG MONITORING PROGRAM REVIEWED*: Not Applicable *COPY OF PRESCRIPTION DRUG MONITORING REPORT IN PATIENT CHANELLE: Not Applicable Instructions: Type 2 Diabetes Mellitus, Diagnosis, Adult, Diabetes Mellitus and Nutrition, Adult, Fever, Adult, [id number] Referrals: Ashley Rene DERMATOLOGY NURSE [Primary Care Provider] - Forms: ED Department Discharge Additional Instructions: With normal chest x-ray and normal CT of the brain as well as no urine infection we will not start antibiotic at this time. Your chronic renal concerns are stable. Your white count is elevated again slightly in comparison to when you are in the emergency department 3 weeks ago and will need to be reevaluated on Sunday at the clinic. Call the [facility] see you can be rechecked on Sunday. Your influenza and Covid testing is negative, maintain healthy lifestyle. In the event your situation should recur or worsen you will need to consider emergency department over the weekend or seeing the clinic as recommended for Sunday. Maintain good diabetic monitoring with your medication as well as your intake, consider increased fluids. Sepsis Event Note (ED) - Focused Exam Vital Signs: Vital Signs Temp Pulse Resp BP BP Pulse Ox Pulse Ox 10/07/21 08:00 99.4 F 70 22 H 112/60 92 L 10/07/21 07:30 97.9 F 74 24 H 108/60 91 L 10/07/21 07:05 74 114/62 96 10/07/21 06:51 74 24 H 115/62 94 L 10/07/21 06:21 91 L 10/07/21 06:05 101.3 F H 77 24 H 103/58 L 89 L - Problem List & Annotations (1) Weakness SNOMED Code(s): 37239814 Code(s): R53.1 - WEAKNESS Status: Acute Priority: High (2) Fall SNOMED Code(s): 2292770, 449850941 Code(s): W19.XXXA - UNSPECIFIED FALL, INITIAL ENCOUNTER Status: Acute Priority: High Qualifiers: Encounter type: initial encounter Qualified Code(s): W19.XXXA - Unspecified fall, initial encounter (3) Diabetes SNOMED Code(s): 28359379 Code(s): E11.9 - TYPE 2 DIABETES MELLITUS WITHOUT COMPLICATIONS Status: Chronic Priority: Medium Qualifiers: Diabetes mellitus type: type 2 Diabetes mellitus detention insulin use: without detention use Diabetes mellitus complication status: with neurologic complications (4) Urine retention SNOMED Code(s): 269250471 Code(s): R33.9 - RETENTION OF URINE, UNSPECIFIED Status: Acute (5) COVID-19 ruled out by laboratory testing SNOMED Code(s): 929173291776569376, 420951965620636112 Code(s): Z20.822 - CONTACT WITH AND (SUSPECTED) EXPOSURE TO COVID-19 Status: Acute Priority: High (6) Fever SNOMED Code(s): 315696913 Code(s): R50.9 - FEVER, UNSPECIFIED Status: Acute Priority: Medium Qualifiers: Fever type: unspecified Qualified Code(s): R50.9 - Fever, unspecified - Problem List Review Problem List Initiated/Reviewed/Updated: Yes - My Orders Last 24 Hours: My Active Orders 10/07/21 06:20 Sodium Chloride 0.9% [Saline Flush] 10 ml FLUSH Q8HR PRN Peripheral IV Insertion Adult [OM.PC] Stat 10/07/21 06:21 Oxygen Therapy [RC] PRN 10/07/21 06:22 Peripheral IV Care [RC] . DIRECTED 10/07/21 06:26 Blood Culture x2 Reflex Set [OM.PC] Stat 10/07/21 06:27 CULTURE BLOOD [BC] Stat 10/07/21 06:30 CULTURE BLOOD [BC] Stat Sodium Chloride 0.9% [Normal Saline] 1,000 ml IV .BOLUS 10/07/21 07:10 EKG 12 Lead [EK] Stat - Assessment/Plan Last 24 Hours: My Active Orders 10/07/21 06:20 Sodium Chloride 0.9% [Saline Flush] 10 ml FLUSH Q8HR PRN Peripheral IV Insertion Adult [OM.PC] Stat 10/07/21 06:21 Oxygen Therapy [RC] PRN 10/07/21 06:22 Peripheral IV Care [RC] . DIRECTED 10/07/21 06:26 Blood Culture x2 Reflex Set [OM.PC] Stat 10/07/21 06:27 CULTURE BLOOD [BC] Stat 10/07/21 06:30 CULTURE BLOOD [BC] Stat Sodium Chloride 0.9% [Normal Saline] 1,000 ml IV .BOLUS 10/07/21 07:10 EKG 12 Lead [EK] Stat Plan: With normal chest x-ray and normal CT of the brain as well as no urine infection we will not start antibiotic at this time. Your chronic renal concerns are stable. Your white count is elevated again slightly in comparison to when you are in the emergency department 3 weeks ago and will need to be reevaluated on Sunday at the clinic. Call the [facility] see you can be rechecked on Sunday. Your influenza and Covid testing is negative, maintain healthy lifestyle. In the event your situation should recur or worsen you will need to consider emergency department over the weekend or seeing the clinic as recommended for Sunday. Maintain good diabetic monitoring with your medication as well as your intake, consider increased fluids.
--- NOTE | 2021-10-07 07:58 | CT ---
[id number] CT/CT Head WO IV EXAM: CT Head WO IV CLINICAL DATA: Fall. COMPARISON STUDY: None FINDINGS: No intracranial hemorrhage, extra-axial fluid collection, mass, or acute ischemia. No hydrocephalus. 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 Findings include minimal atrophy throughout posterior hemispheres and hypodensities in the subcortical/periventricular white matter. Calvarium intact. Paranasal sinuses and mastoid air cells are clear. IMPRESSION: No acute intracranial findings. Delgado Ram MD 10/07/21 0757 Thank you for allowing us to participate in the care of your patient.
--- NOTE | 2021-10-07 08:04 | CR ---
[id number] RAD/RAD Chest PA or AP 1V EXAM: RAD Chest PA or AP 1V INDICATION: WEAKNESS, FALL. COMPARISON: None. DISCUSSION/IMPRESSION: Cardiomediastinal silhouette is normal in size and contour. Bibasal atelectasis. No evidence of pneumonia. No pleural effusion or pneumothorax. Delgado Ram MD 10/07/21 0802 Thank you for allowing us to participate in the care of your patient.
[2021-10-07 08:05] LABS: CORONAVIRUS COVID-19 NAA NEGATIVE (NEGATIVE)
[2021-10-07 08:35] LABS: ANION GAP 17.2 mmol/L (5-15)
[2021-10-07 09:31] VITALS: BP 111/49; PULSE 74
== END 2021-10-07 10:50 | disposition home or self-care (01) ==
LOC: KA.ED 05:59
DX: E11.9 Type 2 diabetes mellitus without complications (principal); R53.1 Weakness; R50.9 Fever, unspecified; I25.10 Atherosclerotic heart disease of native coronary artery without angina pectoris; E78.00 Pure hypercholesterolemia, unspecified; I25.2 Old myocardial infarction; I12.9 Hypertensive chronic kidney disease with stage 1 through stage 4 chronic kidney disease, or unspecified chronic kidney disease; E11.22 Type 2 diabetes mellitus with diabetic chronic kidney disease; N18.30 Chronic kidney disease, stage 3 unspecified; E11.42 Type 2 diabetes mellitus with diabetic polyneuropathy; I45.10 Unspecified right bundle-branch block; Z79.82 Long term (current) use of aspirin; Z79.4 Long term (current) use of insulin; Z79.899 Other long term (current) drug therapy; Z20.822 Contact with and (suspected) exposure to COVID-19
CPT/HCPCS: 0240U; 36415; 70450; 71045; 80053; 81001; 82550; 83605; 84484; 85025; 87040; 99284-25; J7030

== ENCOUNTER 2021-10-08 14:10 | Inpatient (IN) | payer MEDICARE, OTHER ==
[2021-10-08] MEDS ORDERED: Sodium Chloride 0.9% 1,000 ML IV ONE (15:01)
--- NOTE | 2021-10-08 15:22 | CR ---
[id number] RAD/RAD Chest PA And Lateral EXAM: RAD Chest PA And Lateral CLINICAL DATA: CRACKLES RIGHT LUNG BASE COUGH COMPARISON: CORRELATION IS MADE WITH OCTOBER 07, 2021 FINDINGS: An early infiltrate is seen at the right lung base. The left lung is clear. The cardiomediastinal contour is stable IMPRESSION: EARLY PNEUMONIA RIGHT LUNG BASE Dagoberto Brunson MD 10/08/21 [id number] Thank you for allowing us to participate in the care of your patient.
[2021-10-08] MEDS ORDERED: Azithromycin 250 MG Tab ONE (16:10)
[2021-10-08] MEDS ORDERED: cefTRIAXone 1 GM Vial ONE (16:10)
[2021-10-08 16:51] LABS: ANION GAP 16.1 mmol/L (5-15)
--- NOTE | 2021-10-08 16:51 | EDM.PDOC ---
ED HPI GENERAL MEDICAL PROBLEM - General Chief Complaint: General Stated Complaint: WEAKNESS Time Seen by Provider: 10/08/21 14:45 Source of Information: Reports: Patient, Family (son) History Limitations: Reports: No Limitations - History of Present Illness INITIAL COMMENTS - FREE TEXT/NARRATIVE: Patient presents with weakness and "cold feet". He couldn't get up out of his chair today. He has fallen 3 times in last couple days; one was tripping on a step but the others were just falling. He was in ER yesterday and got workup with labs, CXR, head CT, covid: all okay but they brought back today as he is getting worse. He isn't eating or drinking much at all. Son says he ate 1/3 of a cheeseburger but spit out two of the bites because he couldn't swallow it. He has had a mild cough for a few days. - Related Data Allergies Allergy/AdvReac Type Severity Reaction Status Date / Time No Known Drug Allergies Allergy Cannot Verified 10/08/21 14:28 Remember Home Meds: Home Meds Aspirin [Halfprin] 81 mg PO DAILY 01/24/19 [History] Insulin Degludec [Tresiba] 84 unit SQ DAILY 01/24/19 [History] Cholecalciferol (Vitamin D3) [Vitamin D3] 1,000 unit PO DAILY 06/27/19 [History] Dulaglutide [Trulicity] 1.5 mg SUBCUT WEEKLY 11/25/20 [History] Pregabalin [Lyrica] 75 mg PO BID 11/25/20 [History] Beta-Carotene(A) w/C & E/Min [Prosight] 1 tab PO DAILY 09/18/21 [History] Insulin Aspart [Insulin Aspart Flexpen] 6 unit SQ BIDAC 09/18/21 [History] Loperamide HCl [Imodium A-D] 1 tab PO BID PRN 09/18/21 [History] Simvastatin [Zocor] 40 mg PO BEDTIME 09/18/21 [History] Past Medical History HEENT History: Reports: Cataract, Macular Degeneration, Other (See Below) 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 Dermatologic History: Reports: Other (See Below) Other Dermatologic History: ATOPIC DERMATITIS - Infectious Disease History Infectious Disease History: Reports: Chicken Pox, Measles - Past Surgical History HEENT Surgical History: Reports: Cataract Surgery, Tonsillectomy, Other (See Below) Other HEENT Surgeries/Procedures: panendoscopy Cardiovascular Surgical History: Reports: None GI Surgical History: Reports: Appendectomy Endocrine Surgical History: Reports: None Neurological Surgical History: Reports: None Musculoskeletal Surgical History: Reports: Shoulder Surgery Social & Family History - Family History Family Medical History: No Pertinent Family History HEENT: Reports: None - Tobacco Use Tobacco Use Status *Q: Current Every Day Tobacco User Years of Tobacco use: 60 Packs/Tins Daily: 0.2 - Caffeine Use Caffeine Use: Reports: Soda Other Caffeine Use: regular - Alcohol Use Days Per Week of Alcohol Use: 7 Number of Drinks Per Day: 1 Total Drinks Per Week: 7 - Recreational Drug Use Recreational Drug Use: No - Living Situation & Occupation Living situation: Reports: ED ROS GENERAL - Review of Systems Review Of Systems: See Below Constitutional: Reports: Weakness. Denies: Fever, Chills, Malaise HEENT: Denies: Ear Pain, Throat Pain, Vision Change Respiratory: Reports: Cough. Denies: Shortness of Breath Cardiovascular: Denies: Chest Pain, Lightheadedness, Syncope GI/Abdominal: Denies: Abdominal Pain, Diarrhea, Vomiting : Denies: Dysuria, Flank Pain Musculoskeletal: Denies: Neck Pain, Shoulder Pain, Arm Pain, Back Pain, Hand Pain Skin: Denies: Cyanosis, Jaundice, Mottled, Pallor, Diaphoresis Neurological: Reports: Difficulty Walking (usually uses a cane but needed a walker today). Denies: Confusion, Dizziness, Seizure, Syncope, Trouble Speaking Psychiatric: Denies: Agitation, Anxiety, Confusion ED EXAM, GENERAL - Physical Exam Exam: See Below Exam Limited By: No Limitations General Appearance: Alert, WD/WN, No Apparent Distress Eye Exam: Bilateral Eye: EOMI, Normal Inspection, PERRL Ears: Normal External Exam, Hearing Grossly Normal Nose: Normal Inspection, No Blood Throat/Mouth: Normal Inspection, Normal Lips, Normal Voice, No Airway Compromise Head: Atraumatic, Normocephalic Neck: Normal Inspection, Full Range of Motion Respiratory/Chest: No Respiratory Distress, Crackles (R lung base). No: Rhonchi, Wheezing, Stridor Cardiovascular: Normal Peripheral Pulses, Regular Rate, Rhythm, No Edema, No Murmur GI/Abdominal: Normal Bowel Sounds, Soft, Non-Tender, No Organomegaly Back Exam: Normal Inspection, Full Range of Motion. No: CVA Tenderness (L), CVA Tenderness (R) Extremities: Normal Inspection, Normal Range of Motion, Other (feet feel warm to touch but patient says they still feel cold) Neurological: Alert, Oriented, Normal Cognition, No Motor/Sensory Deficits Psychiatric: Normal Affect, Normal Mood Skin Exam: Warm, Dry, Intact, Normal Color, No Rash Course - Vital Signs Last Recorded V/S: Last Vital Signs Temp 97.6 F 10/08/21 14:18 Pulse 75 10/08/21 14:18 Resp 20 10/08/21 14:18 BP 126/67 10/08/21 14:18 Pulse Ox 85 L 10/08/21 14:18 - Orders/Labs/Meds Orders: Active Orders 24 hr Category Date Time Status CULTURE BLOOD [BC] Stat Lab 10/08/21 16:34 Ordered CULTURE BLOOD [BC] Stat Lab 10/08/21 16:34 Ordered Blood Culture x2 Reflex Set [OM.PC] Stat Oth 10/08/21 16:34 Ordered Labs: Laboratory Tests 10/08/21 10/08/21 10/08/21 Range/Units 14:58 16:34 16:35 WBC 19.73 H (5.00-10.00) 10^3/uL RBC 4.26 L (4.50-6.00) 10^6/uL Hgb 12.5 L (13.0-17.0) g/dL Hct 38.7 L (40.0-52.0) % MCV 90.8 (82.0-92.0) fL MCH 29.3 (27.0-31.0) pg MCHC 32.3 (32.0-36.0) g/dL RDW 13.0 (11.5-14.5) % Plt Count 197 (150-400) 10^3/uL MPV 12.1 H (7.4-10.4) fL Immature Gran % (Auto) 0.3 (0.0-5.0) % Neut % (Auto) 76.7 H (50.0-70.0) % Lymph % (Auto) 11.0 L (20.0-40.0) % [place] % (Auto) 11.7 H (2.0-8.0) % Eos % (Auto) 0.1 L (1.0-3.0) % Baso % (Auto) 0.2 (0.0-1.0) % Neut # (Auto) 15.15 H (2.50-7.00) 10^3/uL Lymph # (Auto) 2.18 (1.00-4.00) 10^3/uL [place] # (Auto) 2.30 H (0.10-0.80) 10^3/uL Eos # (Auto) 0.01 L (0.10-0.30) 10^3/uL Baso # (Auto) 0.03 (0.00-0.10) 10^3/uL Immature Gran # (Auto) 0.06 (0.00-0.50) 10^3/uL Sodium 139 (136-145) mmol/L Potassium 4.1 (3.5-5.1) mmol/L Chloride 101 (98-107) mmol/L Carbon Dioxide 26.0 (21.0-32.0) mmol/L Anion Gap 16.1 H (5-15) mmol/L BUN 27 H (7-18) mg/dL Creatinine 1.39 H (0.51-1.17) mg/dL Est Cr Clr Drug Dosing 39.88 mL/min Estimated GFR (MDRD) 48 mL/min Glucose 134 (70-140) mg/dL Lactic Acid 1.7 (0.4-2.0) mmol/L Calcium 8.2 L (8.7-10.3) mg/dL Meds: Medications Discontinued Medications Generic Name Dose Route Start Last Admin Trade Name Freq PRN Reason Stop Dose Admin Azithromycin Confirm 10/08/21 16:10 Azithromycin 250 Mg Tab Administered 10/08/21 16:11 Dose 500 mg .ROUTE .STK-MED ONE Ceftriaxone Sodium Confirm 10/08/21 16:10 Ceftriaxone 1 Gm Vial Administered 10/08/21 16:11 Dose 1 gm .ROUTE .STK-MED ONE Sodium Chloride 1,000 mls @ 999 mls/hr 10/08/21 15:01 Normal Saline IV 10/08/21 16:01 .BOLUS ONE - Re-Assessments/Exams Free Text/Narrative Re-Assessment/Exam: 10/08/21 17:01 WBC 19.7, ANC 15, CXR shows R lung base infiltrate. Blood cultures pending. Discussed findings with patient and family. Will plan to admit for pneumonia and general weakness. Discussed case with Ashley Rene NP who accepted for admission. Patient stable. Gave Rocephin 1 gm IVP and Zithromax 500 mg po in ER. Departure - Departure Time of Disposition: 16:49 Disposition: Admitted As Inpatient 64 Condition: Good Clinical Impression: General weakness, Dehydration, Neutrophilic leukocytosis CAP (community acquired pneumonia) Qualifiers: Laterality: right Lung location: lower lobe of lung Qualified Code(s): J18.9 - Pneumonia, unspecified organism - Discharge Information Sepsis Event Note (ED) - Evaluation Sepsis Screening Result: No Definite Risk - Focused Exam Vital Signs: Vital Signs Temp Pulse Resp BP Pulse Ox 10/08/21 14:18 97.6 F 75 20 126/67 85 L - My Orders Last 24 Hours: My Active Orders 10/08/21 16:34 CULTURE BLOOD [BC] Stat CULTURE BLOOD [BC] Stat Blood Culture x2 Reflex Set [OM.PC] Stat - Assessment/Plan Last 24 Hours: My Active Orders 10/08/21 16:34 CULTURE BLOOD [BC] Stat CULTURE BLOOD [BC] Stat Blood Culture x2 Reflex Set [OM.PC] Stat
[2021-10-08] MEDS ORDERED: Azithromycin 250 MG Tab PO ONE (18:18)
[2021-10-08] MEDS ORDERED: cefTRIAXone 1 GM Vial IVPUSH ONE (18:30)
[2021-10-08] MEDS: Sodium Chloride 0.9% 1,000 ML IV SCH (18:52)
[2021-10-08] MEDS ORDERED: 50% Dextrose in Water 50 ML Syringe IVPUSH PRN (20:15)
[2021-10-08] MEDS ORDERED: Glucagon,Human Recombinant 1 MG Vial IM PRN (20:15)
[2021-10-08] MEDS: Enoxaparin 40 MG/0.4 ML Syringe SUBCUT SCH (20:46)
[2021-10-08] MEDS: Pregabalin 25 MG Cap PO SCH (20:47)
[2021-10-08] MEDS: Acetaminophen 500 MG Tab PO PRN (20:49)
[2021-10-08] MEDS: guaiFENesin 600 MG Tab.ER PO SCH (20:49)
[2021-10-08] MEDS: Simvastatin 20 MG Tab PO SCH (20:49)
[2021-10-08] MEDS: Insulin Aspart 100 Units/ML 3 ML Pen SUBCUT SCH (21:14)
[2021-10-08] MEDS ORDERED: Sodium Chloride 0.9% 500 ML IV ONE (22:30)
[2021-10-09] MEDS: Sodium Chloride 0.9% 1,000 ML IV SCH ×3 (07:09→23:52)
[2021-10-09 07:52] LABS: ANION GAP 15.1 mmol/L (5-15)
[2021-10-09] MEDS: Insulin Aspart 100 Units/ML 3 ML Pen SUBCUT SCH ×4 (08:32→21:28)
[2021-10-09] MEDS: guaiFENesin 600 MG Tab.ER PO SCH ×2 (08:33→20:05)
[2021-10-09] MEDS: Aspirin 81 MG Tab.EC PO SCH (08:33)
[2021-10-09] MEDS: Pregabalin 25 MG Cap PO SCH ×2 (08:33→20:04)
[2021-10-09] MEDS ORDERED: Sodium Chloride 0.9% 500 ML IV ONE (09:29)
--- NOTE | 2021-10-09 09:59 | PCM.HP.2 ---
H&P History of Present Illness - General Date of Service: 10/09/21 Admit Problem/Dx: Admission Diagnosis/Problem Admission Diagnosis/Problem CAP (community acquired pneumonia) due to MSSA ( methicillin sensitive Staphylococcus aureus) Source of Information: Patient, Old Records, Provider, RN History Limitations: Reports: No Limitations - Related Data Allergies/Adverse Reactions: Allergies Allergy/AdvReac Type Severity Reaction Status Date / Time No Known Drug Allergies Allergy Cannot Verified 10/08/21 14:28 Remember Home Medications: Home Meds Aspirin [Halfprin] 81 mg PO DAILY 01/24/19 [History] Insulin Degludec [Tresiba] 84 unit SQ DAILY 01/24/19 [History] Cholecalciferol (Vitamin D3) [Vitamin D3] 1,000 unit PO DAILY 06/27/19 [History] Dulaglutide [Trulicity] 1.5 mg SUBCUT WEEKLY 11/25/20 [History] Pregabalin [Lyrica] 75 mg PO BID 11/25/20 [History] Beta-Carotene(A) w/C & E/Min [Prosight] 1 tab PO DAILY 09/18/21 [History] Insulin Aspart [Insulin Aspart Flexpen] 6 unit SQ BIDAC 09/18/21 [History] Loperamide HCl [Imodium A-D] 1 tab PO BID PRN 09/18/21 [History] Simvastatin [Zocor] 40 mg PO BEDTIME 09/18/21 [History] Past Medical History HEENT History: Reports: Cataract, Macular Degeneration, Other (See Below) 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 Dermatologic History: Reports: Other (See Below) Other Dermatologic History: ATOPIC DERMATITIS - Infectious Disease History Infectious Disease History: Reports: Chicken Pox, Measles - Past Surgical History HEENT Surgical History: Reports: Cataract Surgery, Tonsillectomy, Other (See Below) Other HEENT Surgeries/Procedures: panendoscopy Cardiovascular Surgical History: Reports: None GI Surgical History: Reports: Appendectomy Endocrine Surgical History: Reports: None Neurological Surgical History: Reports: None Musculoskeletal Surgical History: Reports: Shoulder Surgery Social & Family History - Family History Family Medical History: No Pertinent Family History HEENT: Reports: None - Tobacco Use Tobacco Use Status *Q: Never Tobacco User Years of Tobacco use: 60 Packs/Tins Daily: 0.2 - Caffeine Use Caffeine Use: Reports: Soda Other Caffeine Use: regular - Alcohol Use Days Per Week of Alcohol Use: 7 Number of Drinks Per Day: 1 Total Drinks Per Week: 7 - Recreational Drug Use Recreational Drug Use: No - Living Situation & Occupation Living situation: Reports: H&P Review of Systems - Review of Systems: Review Of Systems: See Below General: Reports: Chills, Weakness, Fatigue, Decreased Appetite. Denies: Fever HEENT: Reports: Headaches (chronic) Pulmonary: Reports: Cough. Denies: Shortness of Breath, Pleuritic Chest Pain, Sputum Cardiovascular: Denies: Chest Pain, Edema Gastrointestinal: Denies: Constipation, Diarrhea, Nausea Psychiatric: Denies: Anxiety Neurological: Reports: Headache (chronic) Exam - Exam Exam: See Below - Vital Signs Vital Signs: Last Vital Signs Temp 98.9 F 10/09/21 06:24 Pulse 70 10/09/21 06:24 Resp 22 H 10/09/21 03:00 BP 98/51 L 10/09/21 06:24 Pulse Ox 92 L 10/09/21 06:24 Weight: 181 lb - Exam Quality Assessment: Supplemental Oxygen (3 liters per nasal cannula), DVT Prophylaxis (Lovenox) General: Alert, Oriented (x4), Cooperative, Other (No acute distress) HEENT: Conjunctiva Clear Lungs: Normal Respiratory Effort, Decreased Breath Sounds (throughout lung prince), Crackles (RLL) Cardiovascular: Regular Rate, Regular Rhythm, Normal S1, Normal S2 Extremities: No Pedal Edema Skin: Warm, Dry, Other (pale) Neuro Extensive - Mental Status: Alert, Oriented x3, Normal Mood/Affect, Normal Cognition, Memory Intact Psychiatric: Alert, Normal Affect, Normal Mood - Patient Data Lab Results Last 24 hrs: Laboratory Results - last 24 hr 10/08/21 10/08/21 10/08/21 Range/Units 14:58 16:34 16:35 WBC 19.73 H (5.00-10.00) 10^3/uL RBC 4.26 L (4.50-6.00) 10^6/uL Hgb 12.5 L (13.0-17.0) g/dL Hct 38.7 L (40.0-52.0) % MCV 90.8 (82.0-92.0) fL MCH 29.3 (27.0-31.0) pg MCHC 32.3 (32.0-36.0) g/dL RDW 13.0 (11.5-14.5) % Plt Count 197 (150-400) 10^3/uL MPV 12.1 H (7.4-10.4) fL Immature Gran % (Auto) 0.3 (0.0-5.0) % Neut % (Auto) 76.7 H (50.0-70.0) % Lymph % (Auto) 11.0 L (20.0-40.0) % Aiken % (Auto) 11.7 H (2.0-8.0) % Eos % (Auto) 0.1 L (1.0-3.0) % Baso % (Auto) 0.2 (0.0-1.0) % Neut # (Auto) 15.15 H (2.50-7.00) 10^3/uL Lymph # (Auto) 2.18 (1.00-4.00) 10^3/uL Aiken # (Auto) 2.30 H (0.10-0.80) 10^3/uL Eos # (Auto) 0.01 L (0.10-0.30) 10^3/uL Baso # (Auto) 0.03 (0.00-0.10) 10^3/uL Immature Gran # (Auto) 0.06 (0.00-0.50) 10^3/uL Sodium 139 (136-145) mmol/L Potassium 4.1 (3.5-5.1) mmol/L Chloride 101 (98-107) mmol/L Carbon Dioxide 26.0 (21.0-32.0) mmol/L Anion Gap 16.1 H (5-15) mmol/L BUN 27 H (7-18) mg/dL Creatinine 1.39 H (0.51-1.17) mg/dL Est Cr Clr Drug Dosing 39.88 mL/min Estimated GFR (MDRD) 48 mL/min Glucose 134 (70-140) mg/dL POC Glucose (70-140) mg/dL Lactic Acid 1.7 (0.4-2.0) mmol/L Calcium 8.2 L (8.7-10.3) mg/dL 10/08/21 10/08/21 10/09/21 Range/Units 18:00 21:10 07:25 WBC 19.22 H (5.00-10.00) 10^3/uL RBC 4.02 L (4.50-6.00) 10^6/uL Hgb 11.7 L (13.0-17.0) g/dL Hct 36.8 L (40.0-52.0) % MCV 91.5 (82.0-92.0) fL MCH 29.1 (27.0-31.0) pg MCHC 31.8 L (32.0-36.0) g/dL RDW 13.1 (11.5-14.5) % Plt Count 174 (150-400) 10^3/uL MPV 11.7 H (7.4-10.4) fL Immature Gran % (Auto) 0.3 (0.0-5.0) % Neut % (Auto) 81.6 H (50.0-70.0) % Lymph % (Auto) 8.8 L (20.0-40.0) % Aiken % (Auto) 9.0 H (2.0-8.0) % Eos % (Auto) 0.2 L (1.0-3.0) % Baso % (Auto) 0.1 (0.0-1.0) % Neut # (Auto) 15.68 H (2.50-7.00) 10^3/uL Lymph # (Auto) 1.70 (1.00-4.00) 10^3/uL Aiken # (Auto) 1.73 H (0.10-0.80) 10^3/uL Eos # (Auto) 0.03 L (0.10-0.30) 10^3/uL Baso # (Auto) 0.02 (0.00-0.10) 10^3/uL Immature Gran # (Auto) 0.06 (0.00-0.50) 10^3/uL Sodium (136-145) mmol/L Potassium (3.5-5.1) mmol/L Chloride (98-107) mmol/L Carbon Dioxide (21.0-32.0) mmol/L Anion Gap (5-15) mmol/L BUN (7-18) mg/dL Creatinine (0.51-1.17) mg/dL Est Cr Clr Drug Dosing mL/min Estimated GFR (MDRD) mL/min Glucose (70-140) mg/dL POC Glucose 104 166 H (70-140) mg/dL Lactic Acid (0.4-2.0) mmol/L Calcium (8.7-10.3) mg/dL 10/09/21 10/09/21 Range/Units 07:25 07:42 WBC (5.00-10.00) 10^3/uL RBC (4.50-6.00) 10^6/uL Hgb (13.0-17.0) g/dL Hct (40.0-52.0) % MCV (82.0-92.0) fL MCH (27.0-31.0) pg MCHC (32.0-36.0) g/dL RDW (11.5-14.5) % Plt Count (150-400) 10^3/uL MPV (7.4-10.4) fL Immature Gran % (Auto) (0.0-5.0) % Neut % (Auto) (50.0-70.0) % Lymph % (Auto) (20.0-40.0) % Aiken % (Auto) (2.0-8.0) % Eos % (Auto) (1.0-3.0) % Baso % (Auto) (0.0-1.0) % Neut # (Auto) (2.50-7.00) 10^3/uL Lymph # (Auto) (1.00-4.00) 10^3/uL Aiken # (Auto) (0.10-0.80) 10^3/uL Eos # (Auto) (0.10-0.30) 10^3/uL Baso # (Auto) (0.00-0.10) 10^3/uL Immature Gran # (Auto) (0.00-0.50) 10^3/uL Sodium 142 (136-145) mmol/L Potassium 4.0 (3.5-5.1) mmol/L Chloride 107 (98-107) mmol/L Carbon Dioxide 23.9 (21.0-32.0) mmol/L Anion Gap 15.1 H (5-15) mmol/L BUN 27 H (7-18) mg/dL Creatinine 1.39 H (0.51-1.17) mg/dL Est Cr Clr Drug Dosing 39.88 mL/min Estimated GFR (MDRD) 48 mL/min Glucose 85 (70-140) mg/dL POC Glucose 77 (70-140) mg/dL Lactic Acid (0.4-2.0) mmol/L Calcium 7.6 L (8.7-10.3) mg/dL Result Diagrams: 10/09/21 07:25 10/09/21 07:25 Sepsis Event Note - Evaluation Sepsis Screening Result: No Definite Risk - Focused Exam Vital Signs: Vital Signs Temp Temp Temp Pulse Resp BP BP 10/09/21 06:24 98.9 F 70 98/51 L 10/09/21 03:00 96.3 F L 97.4 F 74 22 H 110/61 10/09/21 01:40 97.3 F 68 20 94/58 L 10/09/21 00:46 96.6 F L 97.2 F 66 22 H 92/59 L 10/08/21 23:30 97.2 F 68 20 90/45 L 94/57 L 10/08/21 22:36 80 28 H 94/39 L 10/08/21 22:12 98.3 F 80 28 H 88/50 L 10/08/21 22:10 98.3 F 10/08/21 21:38 99.9 F 81 Pulse Ox 10/09/21 06:24 92 L 10/09/21 03:00 90 L 10/09/21 01:40 91 L 10/09/21 00:46 92 L 10/08/21 23:30 92 L 10/08/21 22:36 92 L 10/08/21 22:12 92 L 10/08/21 22:10 10/08/21 21:38 91 L Problem List Initiated/Reviewed/Updated: Yes Orders Last 24hrs: Active Orders 24 hr Category Date Time Status Patient Status [ADT] Routine ADT 10/08/21 16:48 Active Blood Glucose Check, Bedside [RC] QIDACANDBED Care 10/08/21 17:39 Active Intake and Output [RC] 06,14,22 Care 10/08/21 17:39 Active Oxygen Therapy [RC] .PRN Care 10/08/21 17:39 Active RT Aerosol Therapy [RC] ASDIRECTED Care 10/09/21 09:30 Ordered Up With Assistance [RC] DAILY Care 10/08/21 17:39 Active VTE/DVT Education [RC] DAILY Care 10/08/21 17:39 Active Vital Signs [RC] 03,07,11,15,19,23 Care 10/08/21 17:39 Active Consult to Case Management/Security Engineer [CONS] Cons 10/08/21 17:39 Active Routine PT Evaluation and Treatment [CONS] Routine Cons 10/08/21 17:39 Active [employer] Diet [DIET] Diet 10/08/21 Dinner Active BASIC METABOLIC PANEL,BMP [CHEM] AM Lab 10/10/21 05:11 Ordered CBC WITH AUTO DIFF [HEME] AM Lab 10/10/21 05:11 Ordered CULTURE BLOOD [BC] Stat Lab 10/08/21 16:34 Ordered CULTURE BLOOD [BC] Stat Lab 10/08/21 16:34 Ordered CULTURE SPUTUM + SMEAR [RM] Stat Lab 10/08/21 17:39 Ordered LACTIC ACID [CHEM] Routine Lab 10/09/21 09:30 Ordered Acetaminophen [Tylenol Extra Strength] Med 10/08/21 20:17 Active 1,000 mg PO Q6H PRN Albuterol/Ipratropium [DuoNeb 3.0-0.5 MG/3 ML] Med 10/09/21 11:00 Ordered 3 ml NEB Q6HRRT Aspirin [Halfprin] Med 10/09/21 09:00 Active 81 mg PO DAILY Azithromycin [Zithromax] 500 mg Med 10/09/21 16:00 Active Sodium Chloride 0.9% [Normal Saline] 250 ml IV Q24H Dextrose 50% in Water Med 10/08/21 20:15 Active 50 ml IVPUSH ASDIRECTED PRN Enoxaparin [Lovenox] Med 10/08/21 21:00 Active 40 mg SUBCUT BEDTIME Glucagon,Human Recombinant [GlucaGen] Med 10/08/21 20:15 Active 1 mg IM ASDIRECTED PRN Insulin Aspart [NovoLOG] Med 10/08/21 22:00 Active See Protocol SUBCUT WITHMEALSANDBED Pregabalin [Lyrica] Med 10/08/21 21:00 Active 75 mg PO BID Simvastatin [Zocor] Med 10/08/21 21:00 Active 40 mg PO BEDTIME Sodium Chloride 0.9% [Normal Saline] 1,000 ml Med 10/08/21 17:45 Active IV ASDIRECTED Sodium Chloride 0.9% [Normal Saline] 500 ml Med 10/09/21 09:29 Ordered IV .BOLUS cefTRIAXone [Rocephin] Med 10/09/21 16:00 Active 1 gm IVPUSH Q24H guaiFENesin [Mucinex] Med 10/08/21 21:00 Active 600 mg PO BID Blood Culture x2 Reflex Set [OM.PC] Stat Oth 10/08/21 16:34 Ordered Code Status [Resuscitation Status] Routine Resus Stat 10/08/21 19:33 Ordered Medication Orders Acetaminophen (Acetaminophen 500 Mg Tab) 1,000 mg PO Q6H PRN PRN Reason: Fever Last Admin: 10/08/21 20:49 Dose: 1,000 mg Documented by: CALESIL Albuterol/Ipratropium (Albuterol/Ipratropium 3.0-0.5 Mg/3 Ml Neb Soln) 3 ml NEB Q6HRRT [facility] Aspirin (Aspirin 81 Mg Tab.Ec) 81 mg PO DAILY [facility] Last Admin: 10/09/21 08:33 Dose: 81 mg Documented by: JAIRO Ceftriaxone Sodium (Ceftriaxone 1 Gm Vial) 1 gm IVPUSH Q24H SHANTELL Stop: 10/13/21 16:01 Dextrose/Water (50% Dextrose In Water 50 Ml Syringe) 50 ml IVPUSH ASDIRECTED PRN PRN Reason: Hypoglycemia Enoxaparin Sodium (Enoxaparin 40 Mg/0.4 Ml Syringe) 40 mg SUBCUT BEDTIME [facility] Last Admin: 10/08/21 20:46 Dose: 40 mg Documented by: CALESIL Glucagon (Glucagon,Human Recombinant 1 Mg Vial) 1 mg IM ASDIRECTED PRN PRN Reason: Hypoglycemia Guaifenesin (Guaifenesin 600 Mg Tab.Er) 600 mg PO BID [facility] Last Admin: 10/09/21 08:33 Dose: 600 mg Documented by: Admin: 10/08/21 20:49 Dose: 600 mg Documented by: NITISH Sodium Chloride (Normal Saline) 1,000 mls @ 75 mls/hr IV ASDIRECTED [facility] Last Admin: 10/09/21 07:09 Dose: 75 mls/hr Documented by: Infusion: 10/09/21 07:09 Dose: 75 mls/hr Documented by: Admin: 10/08/21 18:52 Dose: 75 mls/hr Documented by: JAIRO Azithromycin 500 mg/ Sodium (Chloride) 250 mls @ 250 mls/hr IV Q24H [facility] Stop: 10/10/21 08:00 Sodium Chloride (Normal Saline) 500 mls @ 500 mls/hr IV .BOLUS ONE Stop: 10/09/21 10:28 Insulin Aspart (Insulin Aspart 100 Units/Ml 3 Ml Pen) 0 unit SUBCUT WITHMEALSANDBED [facility]; Protocol Last Admin: 10/09/21 08:32 Dose: Not Given Documented by: Admin: 10/08/21 21:14 Dose: 1 unit Documented by: NITISH Pregabalin (Pregabalin 25 Mg Cap) 75 mg PO BID [facility] Last Admin: 10/09/21 08:33 Dose: 75 mg Documented by: Admin: 10/08/21 20:47 Dose: 75 mg Documented by: NITISH Simvastatin (Simvastatin 20 Mg Tab) 40 mg PO BEDTIME [facility] Last Admin: 10/08/21 20:49 Dose: 40 mg Documented by: NITISH Assessment/Plan Comment:: HPI summary: This 85 yo WM presented to the ED yesterday for concerns of weakness and cold feet. He was unable to get out of his chair on his own. He has had a poor appetite and a mild cough for a few days. He had fallen approx 3 times in the last 2 weeks. He was evaluated for falls in the ED on 09/18/21 and 10/07/21 and was discharged home with outpatient follow-up both times. He and his recently moved to an apartment in [place]. ED course: WBC 19.7 w/neutrophils 76.7% Lactic acid 1.7 BUN 27 Creatinine 1.39 COVID19 negative on 10/07/21 BC x 2 obtained and pending CXR revealed an early RLL infiltrate Received zithromax 500 mg and rocephin 1 gm along with NS 1 liter IV bolus Hospital course: 10/08/21: Received phone call around 2230 regarding a low grade temp, hypotension, and patient requiring 2-3 liters of oxygen. Gave orders for NS 500 mL bolus x 1 with noted improvement. He was also given tylenol with resolution of the low grade temp. 10/09/21: Patient resting in bed during rounds. Had been up to take a shower. Overall states he doesn't feel the best with specific complaints of a headache (chronic), vision blurring (chronic), and a mild cough. Denies SOB/CP. He has remained afebrile. I 200 mL oral and 5% of supper last evening. VS T: 98.9F, HR 70, RR 22, BP 98/51, O2sat 92% on 3 liters NC. Faint crackles to RLL, otherwise diminished throughout. WBC 19.2 w/elevated neutrophils, Hgb 11.7, K 4.0, BUN 27, Ct 1.39 (baseline of 1.4-1.5), glucose 77, repeat lactic acid pending. Hospitalization problems and plan: # RLL CAP pneumonia, present on admission. # Leukocytosis. # Hypotension. # Generalized weakness. # Frequent falls. - Continue zithromax 500 mg IV daily and rocephin 1 gm IV daily - DuoNebs QID - IS q2h w/a - Mucinex 600 mg BID - Sputum culture ordered - NS 500 mL bolus x 1 now, then continue with NS at 75 mL/hr - Accurate I & O - Push oral fluids - Up with assist x 1 - Referral to PT and SS placed for evaluation of weakness/falls and discharge planning Chronic, stable conditions: # CAD. Continue aspirin. # Orthostatic hypotension. # HLD. Continue simvastatin. # T2DM. Accuchecks QID along with low dose SS Novolog. Trulicity, Tresiba, and home novolog on hold. # Chronic rhinitis. # Overweight. # Hx of hyperkalemia. # Secondary hyperparathyroidism of renal origin. # Anxiety. # Multiple lacunar infarcts. # Polyneuropathy associated with underlying disease. Continue lyrica. # Slow transit constipation. # Tubular adenoma of colon. # Hx of Cdiff colitis. # BPH w/obstruction/LUTS. # CKD stage 3b. Followed by nephrology. # Dry eye syndrome of both eyes. # Hx of HTN. # Hx of inferior wall AL. # Proteinuria. # Impairment of cognitive function. # Gait abnormality. # Tobacco abuse. Offered patient a nicotine patch to help with his chewing tobacco cravings, but he declines this at this time. Hospitalization details: # FEN: NS at 75 mL/hr. Electrolytes wnl. ADA diet. # PPX: Lovenox SQ daily. # Code status: DNR/DNI. Reviewed POLST form with patient this AM and he voices being a DNR/DNI, however he wishes to wait to review/sign the form with his and son present. Son will be down this afternoon to review the form with him. # Emergency contact: Danii, patient's , and Nick Holley, his son. Called placed to son, Nick, to give an update on patient. Family is considering swingbed for strengthening. They also have concerns about his continued driving, which the patient and I have discussed in the past and I have recommended he not drive. # Disposition: He will remain in inpatient status for at least 2 more days to receive IVFs, antibiotics, and evaluation from PT and SS. - Mortality Measure Prognosis:: Good
[2021-10-09] MEDS: Albuterol/Ipratropium 3.0-0.5 MG/3 ML Neb Soln NEB SCH ×3 (10:32→22:27)
--- NOTE | 2021-10-09 11:31 | PCM.SN.2 ---
- Free Text/Narrative Note: Family mentioned that patient has had increased difficulty swallowing food and pills as of late. Will have nursing perform a bedside swallow evaluation.
[2021-10-09] MEDS: Azithromycin 500 MG in Sodium Chloride 0.9% 250 ML IV SCH (15:51)
[2021-10-09] MEDS: cefTRIAXone 1 GM Vial IVPUSH SCH (15:51)
[2021-10-09] MEDS: Simvastatin 20 MG Tab PO SCH (20:05)
[2021-10-09] MEDS: Enoxaparin 40 MG/0.4 ML Syringe SUBCUT SCH (20:07)
[2021-10-10] MEDS: Albuterol/Ipratropium 3.0-0.5 MG/3 ML Neb Soln NEB SCH ×4 (04:49→22:16)
[2021-10-10 07:47] LABS: ANION GAP 16.8 mmol/L (5-15)
[2021-10-10] MEDS: Insulin Aspart 100 Units/ML 3 ML Pen SUBCUT SCH ×4 (08:06→21:19)
[2021-10-10] MEDS: Aspirin 81 MG Tab.EC PO SCH (08:19)
[2021-10-10] MEDS: guaiFENesin 600 MG Tab.ER PO SCH ×2 (08:19→21:09)
[2021-10-10] MEDS: Pregabalin 25 MG Cap PO SCH ×2 (08:20→21:09)
--- NOTE | 2021-10-10 11:05 | PCM.PN ---
- General Info Date of Service: 10/10/21 Subjective Update: Patient pleasantly confused this morning, states "I'm still here." Functional Status: Reports: Pain Controlled, Tolerating Diet, Ambulating, Urinating, New Symptoms (diarrhea this morning), Incentive Spirometry (1500ml) - Review of Systems General: Denies: Fever HEENT: Reports: No Symptoms Pulmonary: Reports: Cough (after taking pills). Denies: Shortness of Breath, Sputum, Wheezing Cardiovascular: Reports: No Symptoms Gastrointestinal: Reports: Diarrhea (per nursing). Denies: Abdominal Pain Genitourinary: Reports: No Symptoms Musculoskeletal: Reports: No Symptoms Skin: Reports: No Symptoms Neurological: Reports: Confusion (at baseline) Psychiatric: Reports: Confusion (at baseline) - Patient Data Vitals - Most Recent: Last Vital Signs Temp 98.5 F 10/10/21 05:15 Pulse 82 10/10/21 05:15 Resp 20 10/10/21 05:15 BP 118/54 L 10/10/21 05:15 Pulse Ox 85 L 10/10/21 08:30 Weight - Most Recent: 181 lb I&O - Last 24 Hours: Intake & Output 10/09/21 10/10/21 10/10/21 22:59 06:59 14:59 Intake Total 2004 958 Output Total 300 Balance 2004 658 Lab Results Last 24 Hours: Laboratory Results - last 24 hr 10/09/21 10/09/21 10/09/21 Range/Units 11:33 17:45 21:26 WBC (5.00-10.00) 10^3/uL RBC (4.50-6.00) 10^6/uL Hgb (13.0-17.0) g/dL Hct (40.0-52.0) % MCV (82.0-92.0) fL MCH (27.0-31.0) pg MCHC (32.0-36.0) g/dL RDW (11.5-14.5) % Plt Count (150-400) 10^3/uL MPV (7.4-10.4) fL Immature Gran % (Auto) (0.0-5.0) % Neut % (Auto) (50.0-70.0) % Lymph % (Auto) (20.0-40.0) % [place] % (Auto) (2.0-8.0) % Eos % (Auto) (1.0-3.0) % Baso % (Auto) (0.0-1.0) % Neut # (Auto) (2.50-7.00) 10^3/uL Lymph # (Auto) (1.00-4.00) 10^3/uL [place] # (Auto) (0.10-0.80) 10^3/uL Eos # (Auto) (0.10-0.30) 10^3/uL Baso # (Auto) (0.00-0.10) 10^3/uL Immature Gran # (Auto) (0.00-0.50) 10^3/uL Sodium (136-145) mmol/L Potassium (3.5-5.1) mmol/L Chloride (98-107) mmol/L Carbon Dioxide (21.0-32.0) mmol/L Anion Gap (5-15) mmol/L BUN (7-18) mg/dL Creatinine (0.51-1.17) mg/dL Est Cr Clr Drug Dosing mL/min Estimated GFR (MDRD) mL/min Glucose (70-140) mg/dL POC Glucose 159 H 126 183 H (70-140) mg/dL Calcium (8.7-10.3) mg/dL 10/10/21 10/10/21 10/10/21 Range/Units 07:15 07:15 07:38 WBC 14.50 H (5.00-10.00) 10^3/uL RBC 3.58 L (4.50-6.00) 10^6/uL Hgb 10.6 L (13.0-17.0) g/dL Hct 32.7 L (40.0-52.0) % MCV 91.3 (82.0-92.0) fL MCH 29.6 (27.0-31.0) pg MCHC 32.4 (32.0-36.0) g/dL RDW 13.3 (11.5-14.5) % Plt Count 186 (150-400) 10^3/uL MPV 12.1 H (7.4-10.4) fL Immature Gran % (Auto) 0.7 (0.0-5.0) % Neut % (Auto) 77.4 H (50.0-70.0) % Lymph % (Auto) 10.3 L (20.0-40.0) % [place] % (Auto) 11.2 H (2.0-8.0) % Eos % (Auto) 0.3 L (1.0-3.0) % Baso % (Auto) 0.1 (0.0-1.0) % Neut # (Auto) 11.23 H (2.50-7.00) 10^3/uL Lymph # (Auto) 1.49 (1.00-4.00) 10^3/uL [place] # (Auto) 1.62 H (0.10-0.80) 10^3/uL Eos # (Auto) 0.04 L (0.10-0.30) 10^3/uL Baso # (Auto) 0.02 (0.00-0.10) 10^3/uL Immature Gran # (Auto) 0.10 (0.00-0.50) 10^3/uL Sodium 146 H (136-145) mmol/L Potassium 3.7 (3.5-5.1) mmol/L Chloride 110 H (98-107) mmol/L Carbon Dioxide 22.9 (21.0-32.0) mmol/L Anion Gap 16.8 H (5-15) mmol/L BUN 22 H (7-18) mg/dL Creatinine 1.29 H (0.51-1.17) mg/dL Est Cr Clr Drug Dosing 42.97 mL/min Estimated GFR (MDRD) 53 mL/min Glucose 102 (70-140) mg/dL POC Glucose 95 (70-140) mg/dL Calcium 7.4 L (8.7-10.3) mg/dL Med Orders - Current: Current Medications Acetaminophen (Acetaminophen 500 Mg Tab) 1,000 mg PO Q6H PRN PRN Reason: Fever Last Admin: 10/08/21 20:49 Dose: 1,000 mg Documented by: Albuterol/Ipratropium (Albuterol/Ipratropium 3.0-0.5 Mg/3 Ml Neb Soln) 3 ml NEB Q6HRRT [facility] Last Admin: 10/10/21 04:49 Dose: 3 ml Documented by: Aspirin (Aspirin 81 Mg Tab.Ec) 81 mg PO DAILY [facility] Last Admin: 10/10/21 08:19 Dose: 81 mg Documented by: Ceftriaxone Sodium (Ceftriaxone 1 Gm Vial) 1 gm IVPUSH Q24H [facility] Stop: 10/13/21 16:01 Last Admin: 10/09/21 15:51 Dose: 1 gm Documented by: Dextrose/Water (50% Dextrose In Water 50 Ml Syringe) 50 ml IVPUSH ASDIRECTED PRN PRN Reason: Hypoglycemia Enoxaparin Sodium (Enoxaparin 40 Mg/0.4 Ml Syringe) 40 mg SUBCUT BEDTIME [facility] Last Admin: 10/09/21 20:07 Dose: 40 mg Documented by: Glucagon (Glucagon,Human Recombinant 1 Mg Vial) 1 mg IM ASDIRECTED PRN PRN Reason: Hypoglycemia Guaifenesin (Guaifenesin 600 Mg Tab.Er) 600 mg PO BID [facility] Last Admin: 10/10/21 08:19 Dose: Not Given Documented by: Sodium Chloride (Normal Saline) 1,000 mls @ 75 mls/hr IV ASDIRECTED [facility] Last Admin: 10/09/21 23:52 Dose: 75 mls/hr Documented by: Azithromycin 500 mg/ Sodium (Chloride) 250 mls @ 250 mls/hr IV Q24H [facility] Stop: 10/13/21 22:00 Last Admin: 10/09/21 15:51 Dose: 250 mls/hr Documented by: Insulin Aspart (Insulin Aspart 100 Units/Ml 3 Ml Pen) 0 unit SUBCUT WITHMEALSANDBED [facility]; Protocol Last Admin: 10/10/21 08:06 Dose: Not Given Documented by: Pregabalin (Pregabalin 25 Mg Cap) 75 mg PO BID [facility] Last Admin: 10/10/21 08:20 Dose: 75 mg Documented by: Simvastatin (Simvastatin 20 Mg Tab) 40 mg PO BEDTIME [facility] Last Admin: 10/09/21 20:05 Dose: 40 mg Documented by: Discontinued Medications Azithromycin (Azithromycin 250 Mg Tab) Confirm Administered Dose 500 mg .ROUTE .STK-MED ONE Stop: 10/08/21 16:11 Last Admin: 10/08/21 18:21 Dose: Not Given Documented by: Azithromycin (Azithromycin 250 Mg Tab) 500 mg PO ONETIME ONE Stop: 10/08/21 18:19 Last Admin: 10/08/21 16:15 Dose: 500 mg Documented by: Ceftriaxone Sodium (Ceftriaxone 1 Gm Vial) Confirm Administered Dose 1 gm .ROUTE .STK-MED ONE Stop: 10/08/21 16:11 Last Admin: 10/08/21 18:20 Dose: Not Given Documented by: Ceftriaxone Sodium (Ceftriaxone 1 Gm Vial) 1 gm IVPUSH Q24H ONE Stop: 10/08/21 18:31 Last Admin: 10/08/21 16:15 Dose: 1 gm Documented by: Sodium Chloride (Normal Saline) 1,000 mls @ 999 mls/hr IV .BOLUS ONE Stop: 10/08/21 16:01 Last Admin: 10/08/21 15:25 Dose: 999 mls/hr Documented by: Sodium Chloride (Normal Saline) 500 mls @ 500 mls/hr IV ONETIME ONE Stop: 10/08/21 23:29 Last Admin: 10/08/21 22:30 Dose: 500 mls/hr Documented by: Sodium Chloride (Normal Saline) 500 mls @ 500 mls/hr IV .BOLUS ONE Stop: 10/09/21 10:28 Last Admin: 10/09/21 10:32 Dose: Not Given Documented by: - Exam Quality Assessment: Supplemental Oxygen (3L currently, was 85% on room air this morning), DVT Prophylaxis (lovenox 40mg subq daily). No: Urine Catheter General: Alert, Cooperative, No Acute Distress. No: Oriented (at baseline cognition) HEENT: Pupils Equal, Mucous Membr. Moist/[place] Neck: Supple, Trachea Midline Lungs: Decreased Breath Sounds, Crackles (R base). No: Rhonchi, Wheezing Cardiovascular: Regular Rate, Regular Rhythm, No Murmurs GI/Abdominal Exam: Normal Bowel Sounds, Soft, Non-Tender, No Distention (Male) Exam: Deferred Back Exam: Normal Inspection, Full Range of Motion Extremities: Normal Inspection, Normal Range of Motion, Non-Tender, No Pedal Edema, Normal Capillary Refill Peripheral Pulses: 2+: Dorsalis Pedis (L), Dorsalis Pedis (R) Skin: Warm, Dry, Intact Neurological: No New Focal Deficit, Normal Speech Psy/Mental Status: Alert (at baseline), Normal Affect, Normal Mood - Patient Data Lab Results Last 24 hrs: Laboratory Results - last 24 hr 10/09/21 10/09/21 10/09/21 Range/Units 11:33 17:45 21:26 WBC (5.00-10.00) 10^3/uL RBC (4.50-6.00) 10^6/uL Hgb (13.0-17.0) g/dL Hct (40.0-52.0) % MCV (82.0-92.0) fL MCH (27.0-31.0) pg MCHC (32.0-36.0) g/dL RDW (11.5-14.5) % Plt Count (150-400) 10^3/uL MPV (7.4-10.4) fL Immature Gran % (Auto) (0.0-5.0) % Neut % (Auto) (50.0-70.0) % Lymph % (Auto) (20.0-40.0) % [place] % (Auto) (2.0-8.0) % Eos % (Auto) (1.0-3.0) % Baso % (Auto) (0.0-1.0) % Neut # (Auto) (2.50-7.00) 10^3/uL Lymph # (Auto) (1.00-4.00) 10^3/uL [place] # (Auto) (0.10-0.80) 10^3/uL Eos # (Auto) (0.10-0.30) 10^3/uL Baso # (Auto) (0.00-0.10) 10^3/uL Immature Gran # (Auto) (0.00-0.50) 10^3/uL Sodium (136-145) mmol/L Potassium (3.5-5.1) mmol/L Chloride (98-107) mmol/L Carbon Dioxide (21.0-32.0) mmol/L Anion Gap (5-15) mmol/L BUN (7-18) mg/dL Creatinine (0.51-1.17) mg/dL Est Cr Clr Drug Dosing mL/min Estimated GFR (MDRD) mL/min Glucose (70-140) mg/dL POC Glucose 159 H 126 183 H (70-140) mg/dL Calcium (8.7-10.3) mg/dL 10/10/21 10/10/21 10/10/21 Range/Units 07:15 07:15 07:38 WBC 14.50 H (5.00-10.00) 10^3/uL RBC 3.58 L (4.50-6.00) 10^6/uL Hgb 10.6 L (13.0-17.0) g/dL Hct 32.7 L (40.0-52.0) % MCV 91.3 (82.0-92.0) fL MCH 29.6 (27.0-31.0) pg MCHC 32.4 (32.0-36.0) g/dL RDW 13.3 (11.5-14.5) % Plt Count 186 (150-400) 10^3/uL MPV 12.1 H (7.4-10.4) fL Immature Gran % (Auto) 0.7 (0.0-5.0) % Neut % (Auto) 77.4 H (50.0-70.0) % Lymph % (Auto) 10.3 L (20.0-40.0) % [place] % (Auto) 11.2 H (2.0-8.0) % Eos % (Auto) 0.3 L (1.0-3.0) % Baso % (Auto) 0.1 (0.0-1.0) % Neut # (Auto) 11.23 H (2.50-7.00) 10^3/uL Lymph # (Auto) 1.49 (1.00-4.00) 10^3/uL [place] # (Auto) 1.62 H (0.10-0.80) 10^3/uL Eos # (Auto) 0.04 L (0.10-0.30) 10^3/uL Baso # (Auto) 0.02 (0.00-0.10) 10^3/uL Immature Gran # (Auto) 0.10 (0.00-0.50) 10^3/uL Sodium 146 H (136-145) mmol/L Potassium 3.7 (3.5-5.1) mmol/L Chloride 110 H (98-107) mmol/L Carbon Dioxide 22.9 (21.0-32.0) mmol/L Anion Gap 16.8 H (5-15) mmol/L BUN 22 H (7-18) mg/dL Creatinine 1.29 H (0.51-1.17) mg/dL Est Cr Clr Drug Dosing 42.97 mL/min Estimated GFR (MDRD) 53 mL/min Glucose 102 (70-140) mg/dL POC Glucose 95 (70-140) mg/dL Calcium 7.4 L (8.7-10.3) mg/dL Result Diagrams: 10/10/21 07:15 10/10/21 07:15 Sepsis Event Note - Evaluation Sepsis Screening Result: No Definite Risk - Focused Exam Vital Signs: Vital Signs Temp Pulse Resp BP Pulse Ox Pulse Ox 10/10/21 08:30 85 L 10/10/21 05:15 98.5 F 82 20 118/54 L 92 L 10/10/21 05:12 82 92 L 10/10/21 03:00 98.5 F 82 18 118/59 L 90 L 10/09/21 23:01 97.9 F 86 20 102/63 90 L 10/09/21 22:59 81 90 L - Problem List Review Problem List Initiated/Reviewed/Updated: Yes - Plan Plan:: HPI summary: Chong is an 85yM patient who presented to the ED yesterday for concerns of weakness and cold feet. He was unable to get out of his chair on his own. He has had a poor appetite and a mild cough for a few days. He had fallen approx 3 times in the last 2 weeks. He was evaluated for falls in the ED on 09/18/21 and 10/07/21 and was discharged home with outpatient follow-up both times. He and his recently moved to an apartment in [place] life. ED course: WBC 19.7 w/neutrophils 76.7% Lactic acid 1.7 BUN 27 Creatinine 1.39 COVID19 negative on 10/07/21 BC x 2 obtained and pending CXR revealed an early RLL infiltrate Received zithromax 500 mg and rocephin 1 gm along with NS 1 liter IV bolus in ER Hospital course: 10/08/21: Received phone call around 2230 regarding a low grade temp, hypotension, and patient requiring 2-3 liters of oxygen. Gave orders for NS 500 mL bolus x 1 with noted improvement. He was also given tylenol with resolution of the low grade temp. 10/09/21: Patient resting in bed during rounds. Had been up to take a shower. Overall states he doesn't feel the best with specific complaints of a headache (chronic), vision blurring (chronic), and a mild cough. Denies SOB/CP. He has remained afebrile. I 200 mL oral and 5% of supper last evening. VS T: 98.9F, HR 70, RR 22, BP 98/51, O2sat 92% on 3 liters NC. Faint crackles to RLL, otherwise diminished throughout. WBC 19.2 w/elevated neutrophils, Hgb 11.7, K 4.0, BUN 27, Ct 1.39 (baseline of 1.4-1.5), glucose 77, repeat lactic acid pending. 10/10/21: Patient up in recliner on rounds this morning, no specific concerns verbalized. Blood pressure improved with IV fluids 118/54; afebrile 98.5. Continues to require supplemental O2 by NC 92% on 3L, was 85% on room air this am. WBC trending down, 14.50 today (77.4% N), Hgb 10.6, Plt 186. Na 146, K 3.7, BUN 22, Creatinine 1.29, Ca 7.4. BC x 2 pending, cough non-productive thus sputum specimen remains uncollected. PT eval planned for this afternoon. member services representative communicating with family regarding discharge planning due to recent falls. Hospitalization problems and plan: # RLL CAP pneumonia, present on admission; unspecified organism - suspect possible aspiration pneumonia given reported coughing after taking pills. Patient passed swallow eval per nursing # Hypoxia # Leukocytosis with neutrophilia - WBC 14.50, Neutrophils 77.4% today # Hypotension; resolved with IV fluids - Supplemental oxygen to maintain O2 sat > 92% - BC x 2 pending - Continue zithromax 500 mg IV daily x 5 days - Continue rocephin 1 gm IV daily x 5 days - consider changing to PO to complete course - DuoNebs QID - IS q2h while awake, IS to 1500ml today - Mucinex 600 mg PO BID - Sputum culture ordered - Continue with NS at 75 mL/hr - Accurate I & O - Push oral fluids - Repeat labs in am: CBC, CMP # Generalized weakness # Frequent falls - Up with assist x 1 and walker - PT eval and tx - member services representative consult placed to assist with discharge planning given recent falls Chronic, stable conditions: # CAD - Continue aspirin. # Orthostatic hypotension # HLD - Continue simvastatin 40mg PO daily # T2DM. Accuchecks QID along with low dose SS Novolog. Raymundo Baltazar and jessenia ome novolog on hold. 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 Continue lyrica 75mg PO BID # Slow transit constipation # Tubular adenoma of colon # Hx of Cdiff colitis # BPH w/obstruction/LUTS # CKD stage 3b. Followed by nephrology. # Dry eye syndrome of both eyes # Hx of HTN # Hx of inferior wall MN # Proteinuria # Impairment of cognitive function # Gait abnormality # Tobacco abuse - declined a nicotine patch upon admit Hospitalization details: # FEN: NS at 75 mL/hr. Electrolytes stable. ADA diet. # PPX: Lovenox 40mg subq for ppx daily. # Code status: DNR/DNI. POLST updated by patient's son # Emergency contact: , Danii [phone]; Son, Nick - [phone] # Disposition: Will continue inpatient status for treatment of pneumonia with supplemental oxygen requirements for continuation of IV antibiotics. PT evaluation planned for this afternoon. member services representative communicating with family regarding discharge planning with possible swing bed stay vs SNF.
[2021-10-10] MEDS: Sodium Chloride 0.9% 1,000 ML IV SCH (14:30)
[2021-10-10] MEDS: cefTRIAXone 1 GM Vial IVPUSH SCH (16:07)
[2021-10-10] MEDS: Azithromycin 500 MG in Sodium Chloride 0.9% 250 ML IV SCH (16:09)
[2021-10-10] MEDS ORDERED: LORazepam 0.5 MG Tab PO PRN (18:49)
[2021-10-10] MEDS: Nicotine 21 MG/24 Hr Patch TRDERM SCH (19:41)
[2021-10-10] MEDS: Enoxaparin 40 MG/0.4 ML Syringe SUBCUT SCH (21:08)
[2021-10-10] MEDS: Simvastatin 20 MG Tab PO SCH (21:09)
[2021-10-10] MEDS: Acetaminophen 500 MG Tab PO PRN (23:34)
[2021-10-11] MEDS: Sodium Chloride 0.9% 1,000 ML IV SCH (03:20)
[2021-10-11] MEDS: Albuterol/Ipratropium 3.0-0.5 MG/3 ML Neb Soln NEB SCH ×4 (05:35→22:29)
[2021-10-11] MEDS: Insulin Aspart 100 Units/ML 3 ML Pen SUBCUT SCH ×4 (07:38→21:06)
[2021-10-11 08:05] LABS: ANION GAP 16.1 mmol/L (5-15)
[2021-10-11] MEDS: Pregabalin 25 MG Cap PO SCH ×2 (08:23→20:23)
[2021-10-11] MEDS: Aspirin 81 MG Tab.EC PO SCH (08:23)
[2021-10-11] MEDS: guaiFENesin 600 MG Tab.ER PO SCH ×2 (08:25→20:23)
[2021-10-11] MEDS: Nicotine 21 MG/24 Hr Patch TRDERM SCH (08:25)
[2021-10-11] MEDS ORDERED: Loperamide 2 MG Cap PO PRN (09:08)
[2021-10-11] MEDS ORDERED: Furosemide 40 MG/4 ML VIAL IVPUSH ONE ×2 (10:02→15:07)
--- NOTE | 2021-10-11 10:52 | PCM.PN ---
- General Info Date of Service: 10/11/21 Functional Status: Reports: Tolerating Diet, Ambulating, Urinating - Review of Systems General: Reports: No Symptoms HEENT: Reports: No Symptoms Pulmonary: Reports: No Symptoms, Other Cardiovascular: Reports: No Symptoms Gastrointestinal: Reports: Diarrhea Genitourinary: Reports: No Symptoms - Patient Data Vitals - Most Recent: Last Vital Signs Temp 97 F 10/11/21 10:32 Pulse 76 10/11/21 10:32 Resp 24 H 10/11/21 10:32 BP 125/70 10/11/21 10:32 Pulse Ox 95 10/11/21 10:32 Weight - Most Recent: 188 lb I&O - Last 24 Hours: Intake & Output 10/10/21 10/11/21 10/11/21 22:59 06:59 14:59 Intake Total 971 755 Output Total 550 225 Balance 421 530 Lab Results Last 24 Hours: Laboratory Results - last 24 hr 10/10/21 10/10/21 10/10/21 Range/Units 11:27 18:02 21:08 WBC (5.00-10.00) 10^3/uL RBC (4.50-6.00) 10^6/uL Hgb (13.0-17.0) g/dL Hct (40.0-52.0) % MCV (82.0-92.0) fL MCH (27.0-31.0) pg MCHC (32.0-36.0) g/dL RDW (11.5-14.5) % Plt Count (150-400) 10^3/uL MPV (7.4-10.4) fL Immature Gran % (Auto) (0.0-5.0) % Neut % (Auto) (50.0-70.0) % Lymph % (Auto) (20.0-40.0) % [place] % (Auto) (2.0-8.0) % Eos % (Auto) (1.0-3.0) % Baso % (Auto) (0.0-1.0) % Neut # (Auto) (2.50-7.00) 10^3/uL Lymph # (Auto) (1.00-4.00) 10^3/uL [place] # (Auto) (0.10-0.80) 10^3/uL Eos # (Auto) (0.10-0.30) 10^3/uL Baso # (Auto) (0.00-0.10) 10^3/uL Immature Gran # (Auto) (0.00-0.50) 10^3/uL Sodium (136-145) mmol/L Potassium (3.5-5.1) mmol/L Chloride (98-107) mmol/L Carbon Dioxide (21.0-32.0) mmol/L Anion Gap (5-15) mmol/L BUN (7-18) mg/dL Creatinine (0.51-1.17) mg/dL Est Cr Clr Drug Dosing mL/min Estimated GFR (MDRD) mL/min Glucose (70-140) mg/dL POC Glucose 165 H 201 H 191 H (70-140) mg/dL Calcium (8.7-10.3) mg/dL Total Bilirubin (0.2-1.0) mg/dL AST (15-37) U/L ALT (14-63) U/L Alkaline Phosphatase (46-116) U/L Total Protein (6.4-8.2) g/dL Albumin (3.40-5.00) g/dL 10/11/21 10/11/21 10/11/21 Range/Units 07:25 07:25 07:36 WBC 13.84 H (5.00-10.00) 10^3/uL RBC 3.53 L (4.50-6.00) 10^6/uL Hgb 10.3 L (13.0-17.0) g/dL Hct 32.5 L (40.0-52.0) % MCV 92.1 H (82.0-92.0) fL MCH 29.2 (27.0-31.0) pg MCHC 31.7 L (32.0-36.0) g/dL RDW 13.5 (11.5-14.5) % Plt Count 207 (150-400) 10^3/uL MPV 11.9 H (7.4-10.4) fL Immature Gran % (Auto) 1.7 (0.0-5.0) % Neut % (Auto) 62.6 (50.0-70.0) % Lymph % (Auto) 23.9 (20.0-40.0) % [place] % (Auto) 10.5 H (2.0-8.0) % Eos % (Auto) 1.1 (1.0-3.0) % Baso % (Auto) 0.2 (0.0-1.0) % Neut # (Auto) 8.66 H (2.50-7.00) 10^3/uL Lymph # (Auto) 3.31 (1.00-4.00) 10^3/uL [place] # (Auto) 1.46 H (0.10-0.80) 10^3/uL Eos # (Auto) 0.15 (0.10-0.30) 10^3/uL Baso # (Auto) 0.03 (0.00-0.10) 10^3/uL Immature Gran # (Auto) 0.23 (0.00-0.50) 10^3/uL Sodium 146 H (136-145) mmol/L Potassium 3.7 (3.5-5.1) mmol/L Chloride 111 H (98-107) mmol/L Carbon Dioxide 22.6 (21.0-32.0) mmol/L Anion Gap 16.1 H (5-15) mmol/L BUN 20 H (7-18) mg/dL Creatinine 1.34 H (0.51-1.17) mg/dL Est Cr Clr Drug Dosing 41.37 mL/min Estimated GFR (MDRD) 50 mL/min Glucose 125 (70-140) mg/dL POC Glucose 125 (70-140) mg/dL Calcium 7.6 L (8.7-10.3) mg/dL Total Bilirubin 0.4 (0.2-1.0) mg/dL AST 53 H (15-37) U/L ALT 33 (14-63) U/L Alkaline Phosphatase 58 (46-116) U/L Total Protein 5.7 L (6.4-8.2) g/dL Albumin 1.96 L (3.40-5.00) g/dL Med Orders - Current: Current Medications Acetaminophen (Acetaminophen 500 Mg Tab) 1,000 mg PO Q6H PRN PRN Reason: Fever Last Admin: 10/10/21 23:34 Dose: 1,000 mg Documented by: Albuterol/Ipratropium (Albuterol/Ipratropium 3.0-0.5 Mg/3 Ml Neb Soln) 3 ml NEB Q6HRRT [facility] Last Admin: 10/11/21 05:35 Dose: 3 ml Documented by: Aspirin (Aspirin 81 Mg Tab.Ec) 81 mg PO DAILY [facility] Last Admin: 10/11/21 08:23 Dose: 81 mg Documented by: Ceftriaxone Sodium (Ceftriaxone 1 Gm Vial) 1 gm IVPUSH Q24H [facility] Stop: 10/13/21 16:01 Last Admin: 10/10/21 16:07 Dose: 1 gm Documented by: Dextrose/Water (50% Dextrose In Water 50 Ml Syringe) 50 ml IVPUSH ASDIRECTED PRN PRN Reason: Hypoglycemia Enoxaparin Sodium (Enoxaparin 40 Mg/0.4 Ml Syringe) 40 mg SUBCUT BEDTIME [facility] Last Admin: 10/10/21 21:08 Dose: 40 mg Documented by: Glucagon (Glucagon,Human Recombinant 1 Mg Vial) 1 mg IM ASDIRECTED PRN PRN Reason: Hypoglycemia Guaifenesin (Guaifenesin 600 Mg Tab.Er) 600 mg PO BID [facility] Last Admin: 10/11/21 08:25 Dose: Not Given Documented by: Azithromycin 500 mg/ Sodium (Chloride) 250 mls @ 250 mls/hr IV Q24H [facility] Stop: 10/13/21 22:00 Last Admin: 10/10/21 16:09 Dose: 250 mls/hr Documented by: Insulin Aspart (Insulin Aspart 100 Units/Ml 3 Ml Pen) 0 unit SUBCUT W ITHMEALSANDBED [facility]; Protocol Last Admin: 10/11/21 07:38 Dose: Not Given Documented by: Loperamide HCl (Loperamide 2 Mg Cap) 2 mg PO BID PRN PRN Reason: Diarrhea Miscellaneous Information (Remove Patch) 1 ea TRDERM DAILY [facility] Last Admin: 10/11/21 08:25 Dose: 1 ea Documented by: Nicotine (Nicotine 21 Mg/24 Hr Patch) 21 mg TRDERM DAILY [facility] Last Admin: 10/11/21 08:25 Dose: 21 mg Documented by: Pregabalin (Pregabalin 25 Mg Cap) 75 mg PO BID [facility] Last Admin: 10/11/21 08:23 Dose: 75 mg Documented by: Simvastatin (Simvastatin 20 Mg Tab) 40 mg PO BEDTIME [facility] Last Admin: 10/10/21 21:09 Dose: 40 mg Documented by: Discontinued Medications Azithromycin (Azithromycin 250 Mg Tab) Confirm Administered Dose 500 mg .ROUTE .STK-MED ONE Stop: 10/08/21 16:11 Last Admin: 10/08/21 18:21 Dose: Not Given Documented by: Azithromycin (Azithromycin 250 Mg Tab) 500 mg PO ONETIME ONE Stop: 10/08/21 18:19 Last Admin: 10/08/21 16:15 Dose: 500 mg Documented by: Ceftriaxone Sodium (Ceftriaxone 1 Gm Vial) Confirm Administered Dose 1 gm .ROUTE .STK-MED ONE Stop: 10/08/21 16:11 Last Admin: 10/08/21 18:20 Dose: Not Given Documented by: Ceftriaxone Sodium (Ceftriaxone 1 Gm Vial) 1 gm IVPUSH Q24H ONE Stop: 10/08/21 18:31 Last Admin: 10/08/21 16:15 Dose: 1 gm Documented by: Furosemide (Furosemide 40 Mg/4 Ml Vial) 20 mg IVPUSH NOW ONE Stop: 10/11/21 10:03 Sodium Chloride (Normal Saline) 1,000 mls @ 999 mls/hr IV .BOLUS ONE Stop: 10/08/21 16:01 Last Admin: 10/08/21 15:25 Dose: 999 mls/hr Documented by: Sodium Chloride (Normal Saline) 1,000 mls @ 75 mls/hr IV ASDIRECTED [facility] Last Infusion: 10/11/21 03:47 Dose: 75 mls/hr Documented by: Sodium Chloride (Normal Saline) 500 mls @ 500 mls/hr IV ONETIME ONE Stop: 10/08/21 23:29 Last Admin: 10/08/21 22:30 Dose: 500 mls/hr Documented by: Sodium Chloride (Normal Saline) 500 mls @ 500 mls/hr IV .BOLUS ONE Stop: 10/09/21 10:28 Last Admin: 10/09/21 10:32 Dose: Not Given Documented by: Lorazepam (Lorazepam 0.5 Mg Tab) 0.5 mg PO ONETIME PRN PRN Reason: Anxiety - Exam Quality Assessment: Supplemental Oxygen General: Alert, Cooperative Neck: Supple Lungs: Normal Respiratory Effort, Crackles (bilateral bases) Cardiovascular: Regular Rate GI/Abdominal Exam: Normal Bowel Sounds, Soft, Non-Tender Extremities: Pedal Edema (mild bilateral lower extremity weakness. ) - Patient Data Lab Results Last 24 hrs: Laboratory Results - last 24 hr 10/10/21 10/10/21 10/10/21 Range/Units 11:27 18:02 21:08 WBC (5.00-10.00) 10^3/uL RBC (4.50-6.00) 10^6/uL Hgb (13.0-17.0) g/dL Hct (40.0-52.0) % MCV (82.0-92.0) fL MCH (27.0-31.0) pg MCHC (32.0-36.0) g/dL RDW (11.5-14.5) % Plt Count (150-400) 10^3/uL MPV (7.4-10.4) fL Immature Gran % (Auto) (0.0-5.0) % Neut % (Auto) (50.0-70.0) % Lymph % (Auto) (20.0-40.0) % [place] % (Auto) (2.0-8.0) % Eos % (Auto) (1.0-3.0) % Baso % (Auto) (0.0-1.0) % Neut # (Auto) (2.50-7.00) 10^3/uL Lymph # (Auto) (1.00-4.00) 10^3/uL [place] # (Auto) (0.10-0.80) 10^3/uL Eos # (Auto) (0.10-0.30) 10^3/uL Baso # (Auto) (0.00-0.10) 10^3/uL Immature Gran # (Auto) (0.00-0.50) 10^3/uL Sodium (136-145) mmol/L Potassium (3.5-5.1) mmol/L Chloride (98-107) mmol/L Carbon Dioxide (21.0-32.0) mmol/L Anion Gap (5-15) mmol/L BUN (7-18) mg/dL Creatinine (0.51-1.17) mg/dL Est Cr Clr Drug Dosing mL/min Estimated GFR (MDRD) mL/min Glucose (70-140) mg/dL POC Glucose 165 H 201 H 191 H (70-140) mg/dL Calcium (8.7-10.3) mg/dL Total Bilirubin (0.2-1.0) mg/dL AST (15-37) U/L ALT (14-63) U/L Alkaline Phosphatase (46-116) U/L Total Protein (6.4-8.2) g/dL Albumin (3.40-5.00) g/dL 10/11/21 10/11/21 10/11/21 Range/Units 07:25 07:25 07:36 WBC 13.84 H (5.00-10.00) 10^3/uL RBC 3.53 L (4.50-6.00) 10^6/uL Hgb 10.3 L (13.0-17.0) g/dL Hct 32.5 L (40.0-52.0) % MCV 92.1 H (82.0-92.0) fL MCH 29.2 (27.0-31.0) pg MCHC 31.7 L (32.0-36.0) g/dL RDW 13.5 (11.5-14.5) % Plt Count 207 (150-400) 10^3/uL MPV 11.9 H (7.4-10.4) fL Immature Gran % (Auto) 1.7 (0.0-5.0) % Neut % (Auto) 62.6 (50.0-70.0) % Lymph % (Auto) 23.9 (20.0-40.0) % [place] % (Auto) 10.5 H (2.0-8.0) % Eos % (Auto) 1.1 (1.0-3.0) % Baso % (Auto) 0.2 (0.0-1.0) % Neut # (Auto) 8.66 H (2.50-7.00) 10^3/uL Lymph # (Auto) 3.31 (1.00-4.00) 10^3/uL [place] # (Auto) 1.46 H (0.10-0.80) 10^3/uL Eos # (Auto) 0.15 (0.10-0.30) 10^3/uL Baso # (Auto) 0.03 (0.00-0.10) 10^3/uL Immature Gran # (Auto) 0.23 (0.00-0.50) 10^3/uL Sodium 146 H (136-145) mmol/L Potassium 3.7 (3.5-5.1) mmol/L Chloride 111 H (98-107) mmol/L Carbon Dioxide 22.6 (21.0-32.0) mmol/L Anion Gap 16.1 H (5-15) mmol/L BUN 20 H (7-18) mg/dL Creatinine 1.34 H (0.51-1.17) mg/dL Est Cr Clr Drug Dosing 41.37 mL/min Estimated GFR (MDRD) 50 mL/min Glucose 125 (70-140) mg/dL POC Glucose 125 (70-140) mg/dL Calcium 7.6 L (8.7-10.3) mg/dL Total Bilirubin 0.4 (0.2-1.0) mg/dL AST 53 H (15-37) U/L ALT 33 (14-63) U/L Alkaline Phosphatase 58 (46-116) U/L Total Protein 5.7 L (6.4-8.2) g/dL Albumin 1.96 L (3.40-5.00) g/dL Result Diagrams: 10/11/21 07:25 10/11/21 07:25 Sepsis Event Note - Evaluation Sepsis Screening Result: No Definite Risk - Focused Exam Vital Signs: Vital Signs Temp Pulse Resp BP Pulse Ox 10/11/21 10:32 97 F 76 24 H 125/70 95 10/11/21 05:31 96.2 F L 72 20 97/62 95 10/11/21 05:00 72 10/11/21 03:50 72 24 H 90/60 91 L 10/11/21 03:00 97.6 F 80 24 H 82/49 L 84 L - Problem List Review Problem List Initiated/Reviewed/Updated: Yes - My Orders Last 24 Hours: My Active Orders 10/11/21 09:08 Loperamide [Imodium] 2 mg PO BID PRN 10/12/21 05:11 BASIC METABOLIC PANEL,BMP [CHEM] AM CBC WITH AUTO DIFF [HEME] AM - Plan Plan:: HPI summary: Chong is an 85yM patient who presented to the ED yesterday for concerns of weakness and cold feet. He was unable to get out of his chair on his own. He has had a poor appetite and a mild cough for a few days. He had fallen approx 3 times in the last 2 weeks. He was evaluated for falls in the ED on 09/18/21 and 10/07/21 and was discharged home with outpatient follow-up both times. He and his recently moved to an apartment in [place] life. ED course: WBC 19.7 w/neutrophils 76.7% Lactic acid 1.7 BUN 27 Creatinine 1.39 COVID19 negative on 10/07/21 BC x 2 obtained and pending CXR revealed an early RLL infiltrate Received zithromax 500 mg and rocephin 1 gm along with NS 1 liter IV bolus in ER Hospital course: 10/08/21: Received phone call around 2230 regarding a low grade temp, hypotension, and patient requiring 2-3 liters of oxygen. Gave orders for NS 500 mL bolus x 1 with noted improvement. He was also given tylenol with resolution of the low grade temp. 10/09/21: Patient resting in bed during rounds. Had been up to take a shower. Overall states he doesn't feel the best with specific complaints of a headache (chronic), vision blurring (chronic), and a mild cough. Denies SOB/CP. He has remained afebrile. I 200 mL oral and 5% of supper last evening. VS T: 98.9F, HR 70, RR 22, BP 98/51, O2sat 92% on 3 liters NC. Faint crackles to RLL, otherwise diminished throughout. WBC 19.2 w/elevated neutrophils, Hgb 11.7, K 4.0, BUN 27, Ct 1.39 (baseline of 1.4-1.5), glucose 77, repeat lactic acid pending. 10/10/21: Patient up in recliner on rounds this morning, no specific concerns verbalized. Blood pressure improved with IV fluids 118/54; afebrile 98.5. Continues to require supplemental O2 by NC 92% on 3L, was 85% on room air this am. WBC trending down, 14.50 today (77.4% N), Hgb 10.6, Plt 186. Na 146, K 3.7, BUN 22, Creatinine 1.29, Ca 7.4. BC x 2 pending, cough non-productive thus sputum specimen remains uncollected. PT eval planned for this afternoon. medical services coordinator communicating with family regarding discharge planning due to recent falls. 10/11/21: Patient is up in recline on rounds this morning. No new concerns. He reports feeling bored. BP improved after NS bolus last night for hypotension. Patient still continues O2 requirement. 92% on 3L NC. WBC improved to 13.84. (62.6% N). Hgb 10.3. Na 146, K 3.7, creatinine 1.34 (baseline 1.4-1.5). BC pending. Patient denies shortness of breath or cough. Social work evaluated patient with plan to discharge to SNF at [facility] in [place], [place]. Hospitalization problems and plan: # RLL CAP pneumonia, present on admission; unspecified organism - suspect possible aspiration pneumonia given reported coughing after taking pills. Patient passed swallow eval per nursing # Hypoxia # Leukocytosis with neutrophilia - WBC 13.84.50, Neutrophils 62.6% today # Hypotension; resolved with IV fluids #Peripheral edema- bilateral crackles noted. Weight gain of 7 lbs since admission - Supplemental oxygen to maintain O2 sat > 92% - BC x 2 pending - Continue zithromax 500 mg IV daily x 5 days - Continue rocephin 1 gm IV daily x 5 days - consider changing to PO to complete course - DuoNebs QID - IS q2h while awake, IS to 1500ml today - Mucinex 600 mg PO BID - Sputum culture ordered - Discontinue IV fluids - Accurate I & O - Push oral fluids - Repeat labs in am: CBC, CMP - One time dose of lasix 20 mg IVP- recheck BP after 30 min of administration - Outpatient echo in the future due to peripheral edema along with weight gain # Generalized weakness # Frequent falls - Up with assist x 1 and walker - PT eval and tx - medical services coordinator consult placed to assist with discharge planning given recent falls - Plan to discharge to SNF Chronic, stable conditions: # CAD - Continue aspirin. # Orthostatic hypotension # HLD - Continue simvastatin 40mg PO daily # T2DM. Accuchecks QID along with low dose SS Novolog. Trulicity, Tresiba, and home novolog on hold. 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 Continue lyrica 75mg PO BID # Slow transit constipation # Tubular adenoma of colon # Hx of Cdiff colitis # BPH w/obstruction/LUTS # CKD stage 3b. Followed by nephrology. # Dry eye syndrome of both eyes # Hx of HTN # Hx of inferior wall WA # Proteinuria # Impairment of cognitive function # Gait abnormality # Tobacco abuse - Nicotine patches while in the hospital Hospitalization details: # FEN: IVF D/C. Electrolytes stable. ADA diet. # PPX: Lovenox 40mg subq for ppx daily. # Code status: DNR/DNI. POLST updated by patient's son # Emergency contact: , Danii [phone]; Son, Nick - [phone] # Disposition: Will continue inpatient status for treatment of pneumonia with supplemental oxygen requirements for continuation of IV antibiotics as well as monitoring for hypotension. medical services coordinator communicating with family regarding discharge planning. [place]
[2021-10-11] MEDS: cefTRIAXone 1 GM Vial IVPUSH SCH (15:35)
[2021-10-11] MEDS: Azithromycin 500 MG in Sodium Chloride 0.9% 250 ML IV SCH (15:48)
[2021-10-11] MEDS: Enoxaparin 40 MG/0.4 ML Syringe SUBCUT SCH (20:23)
[2021-10-11] MEDS: Simvastatin 20 MG Tab PO SCH (20:23)
[2021-10-12] MEDS: Albuterol/Ipratropium 3.0-0.5 MG/3 ML Neb Soln NEB SCH ×2 (04:09→11:06)
[2021-10-12] MEDS: Insulin Aspart 100 Units/ML 3 ML Pen SUBCUT SCH ×2 (07:52→11:19)
[2021-10-12] MEDS: Aspirin 81 MG Tab.EC PO SCH (08:56)
[2021-10-12] MEDS: Pregabalin 25 MG Cap PO SCH (08:56)
[2021-10-12] MEDS: guaiFENesin 600 MG Tab.ER PO SCH (08:56)
[2021-10-12] MEDS: Nicotine 21 MG/24 Hr Patch TRDERM SCH (08:57)
[2021-10-12] MEDS ORDERED: cefTRIAXone 1 GM Vial IVPUSH ONE (09:30)
[2021-10-12] MEDS ORDERED: Furosemide 40 MG Tab PO SCH (09:45)
--- NOTE | 2021-10-12 10:13 | PCM.DCSUM1 ---
Discharge Summary - Hospital Course Free Text/Narrative:: Date of admission: 10/08/21 Date of discharge: 10/12/21 Admission diagnoses: CAP, falls, generalized weakness Discharge diagnoses: CAP, falls, generalized weakness, peripheral edema, elevated BNP Consultations: none Procedures: none Hospital course HPI summary: Chong is an 85yM patient who presented to the ED yesterday for concerns of weakness and cold feet. He was unable to get out of his chair on his own. He has had a poor appetite and a mild cough for a few days. He had fallen approx 3 times in the last 2 weeks. He was evaluated for falls in the ED on 09/18/21 and 10/07/21 and was discharged home with outpatient follow-up both times. He and his recently moved to an apartment in [place] life. ED course: WBC 19.7 w/neutrophils 76.7% Lactic acid 1.7 BUN 27 Creatinine 1.39 COVID19 negative on 10/07/21 BC x 2 obtained and pending CXR revealed an early RLL infiltrate Received zithromax 500 mg and rocephin 1 gm along with NS 1 liter IV bolus in ER Hospital course: 10/08/21: Received phone call around 2230 regarding a low grade temp, hypotension, and patient requiring 2-3 liters of oxygen. Gave orders for NS 500 mL bolus x 1 with noted improvement. He was also given tylenol with resolution of the low grade temp. 10/09/21: Patient resting in bed during rounds. Had been up to take a shower. Overall states he doesn't feel the best with specific complaints of a headache (chronic), vision blurring (chronic), and a mild cough. Denies SOB/CP. He has remained afebrile. I 200 mL oral and 5% of supper last evening. VS T: 98.9F, HR 70, RR 22, BP 98/51, O2sat 92% on 3 liters NC. Faint crackles to RLL, otherwise diminished throughout. WBC 19.2 w/elevated neutrophils, Hgb 11.7, K 4.0, BUN 27, Ct 1.39 (baseline of 1.4-1.5), glucose 77, repeat lactic acid pending. 10/10/21: Patient up in recliner on rounds this morning, no specific concerns verbalized. Blood pressure improved with IV fluids 118/54; afebrile 98.5. Continues to require supplemental O2 by NC 92% on 3L, was 85% on room air this am. WBC trending down, 14.50 today (77.4% N), Hgb 10.6, Plt 186. Na 146, K 3.7, BUN 22, Creatinine 1.29, Ca 7.4. BC x 2 pending, cough non-productive thus sputum specimen remains uncollected. PT eval planned for this afternoon. fast food services manager communicating with family regarding discharge planning due to recent falls. 10/11/21: Patient is up in recline on rounds this morning. No new concerns. He reports feeling bored. BP improved after NS bolus last night for hypotension. Patient still continues O2 requirement. 92% on 3L NC. WBC improved to 13.84. (62.6% N). Hgb 10.3. Na 146, K 3.7, creatinine 1.34 (baseline 1.4-1.5). BC pending. Patient denies shortness of breath or cough. Social work evaluated patient with plan to discharge to SNF at [facility] in [place], [place]. 10/12/21: No calls by nursing staff overnight. Patient up in recliner on rounds. No new concerns. He denies chest pain, SOB, fevers. Mild cough. BP has remained stable. Patient requiring 2L of O2. WBC 13.82. Hgb 10.4. Creatinine 1.33 (baseline 1.4-1.5). Patient is down 4 lbs since yesterday. He received a total of lasix 40 mg IV yesterday. Patient hopeful to go to [facility] today for rehab and strengthening. Discharge and follow-up recommendations: -Discharge to [facility] ([facility]) -Medication changes at discharge: Start lasix 40 mg PO daily -Follow up with PCP in one week. Will need CBC, CMP and A1c prior to follow up. Echo ordered for outpatient evaluation of peripheral edema and elevated BNP. -Pending results: BC negative X4 days - Discharge Data Discharge Date: 10/12/21 Discharge Disposition: DC/Tfer to [facility] 03 Condition: Good - Referral to Home Health Primary Care Physician: Ashley Rene NP - Patient Summary/Data Consults: Consultations 10/08/21 17:39 Consult to Case Management/Box Car Bracer [CONS] Routine PT Evaluation and Treatment [CONS] Routine - Patient Instructions Diet: Diabetic Diet Activity: As Tolerated - Discharge Plan *PRESCRIPTION DRUG MONITORING PROGRAM REVIEWED*: Yes *COPY OF PRESCRIPTION DRUG MONITORING REPORT IN PATIENT CHANELLE: No (Marked as reveiwed in Epic) Prescriptions/Med Rec: Nicotine [Habitrol] 21 mg TRDERM DAILY #30 patch Furosemide [Lasix] 40 mg PO DAILY #30 tablet guaiFENesin [Mucinex] 600 mg PO BID #14 tab.er Home Medications: Home Meds Aspirin [Halfprin] 81 mg PO DAILY 01/24/19 [History] Insulin Degludec [Tresiba] 84 unit SQ DAILY 01/24/19 [History] Cholecalciferol (Vitamin D3) [Vitamin D3] 1,000 unit PO DAILY 06/27/19 [History] Dulaglutide [Trulicity] 1.5 mg SUBCUT WEEKLY 11/25/20 [History] Pregabalin [Lyrica] 75 mg PO BID 11/25/20 [History] Beta-Carotene(A) w/C & E/Min [Prosight] 1 tab PO DAILY 09/18/21 [History] Insulin Aspart [Insulin Aspart Flexpen] 6 unit SQ BIDAC 09/18/21 [History] Loperamide HCl [Imodium A-D] 1 tab PO BID PRN 09/18/21 [History] Simvastatin [Zocor] 40 mg PO BEDTIME 09/18/21 [History] Furosemide [Lasix] 40 mg PO DAILY #30 tablet 10/12/21 [Rx] Loperamide [Imodium] 2 mg PO BID PRN cap 10/12/21 [Rx] Nicotine [Habitrol] 21 mg TRDERM DAILY #30 patch 10/12/21 [Rx] guaiFENesin [Mucinex] 600 mg PO BID #14 tab.er 10/12/21 [Rx] Oxygen Therapy Mode: Nasal Cannula Maintain SpO2% greater than: 92 Forms: ED Department Discharge Referrals: Ashley Rene, POLICY CHANGE CLERK [Primary Care Provider] - - Discharge Summary/Plan Comment DC Time >30 min.: Yes Total # of Minutes for Discharge Time: 40 - General Info Date of Service: 10/12/21 Subjective Update: No new concerns today. He is feeling well. Denies fever, SOB, chest pain. Reports mild cough. Denies any more diarrhea today. Functional Status: Reports: Tolerating Diet, Ambulating, Urinating - Review of Systems General: Reports: Weakness HEENT: Reports: No Symptoms Pulmonary: Reports: Cough Cardiovascular: Reports: No Symptoms Gastrointestinal: Reports: No Symptoms Genitourinary: Reports: No Symptoms Musculoskeletal: Reports: No Symptoms Skin: Reports: No Symptoms Neurological: Reports: No Symptoms Psychiatric: Reports: No Symptoms - Patient Data Vitals - Most Recent: Last Vital Signs Temp 97.7 F 10/12/21 06:37 Pulse 80 10/12/21 06:37 Resp 18 10/12/21 06:37 BP 109/61 10/12/21 06:37 Pulse Ox 93 L 10/12/21 06:37 Weight - Most Recent: 184 lb 4 oz I&O - Last 24 hours: Intake & Output 10/11/21 10/12/21 10/12/21 22:59 06:59 14:59 Intake Total 660 100 Output Total 2750 400 Balance -2090 -300 Lab Results - Last 24 hrs: Laboratory Results - last 24 hr 10/11/21 10/11/21 10/11/21 Range/Units 07:10 11:41 15:37 WBC (5.00-10.00) 10^3/uL RBC (4.50-6.00) 10^6/uL Hgb (13.0-17.0) g/dL Hct (40.0-52.0) % MCV (82.0-92.0) fL MCH (27.0-31.0) pg MCHC (32.0-36.0) g/dL RDW (11.5-14.5) % Plt Count (150-400) 10^3/uL MPV (7.4-10.4) fL Immature Gran % (Auto) (0.0-5.0) % Neut % (Auto) (50.0-70.0) % Lymph % (Auto) (20.0-40.0) % [place] % (Auto) (2.0-8.0) % Eos % (Auto) (1.0-3.0) % Baso % (Auto) (0.0-1.0) % Neut # (Auto) (2.50-7.00) 10^3/uL Lymph # (Auto) (1.00-4.00) 10^3/uL [place] # (Auto) (0.10-0.80) 10^3/uL Eos # (Auto) (0.10-0.30) 10^3/uL Baso # (Auto) (0.00-0.10) 10^3/uL Immature Gran # (Auto) (0.00-0.50) 10^3/uL Sodium (136-145) mmol/L Potassium (3.5-5.1) mmol/L Chloride (98-107) mmol/L Carbon Dioxide (21.0-32.0) mmol/L Anion Gap (5-15) mmol/L BUN (7-18) mg/dL Creatinine (0.51-1.17) mg/dL Est Cr Clr Drug Dosing mL/min Estimated GFR (MDRD) mL/min Glucose (70-140) mg/dL POC Glucose 173 H (70-140) mg/dL Calcium (8.7-10.3) mg/dL Total Bilirubin (0.2-1.0) mg/dL AST (15-37) U/L ALT (14-63) U/L Alkaline Phosphatase (46-116) U/L B-Natriuretic Peptide 730 H (0-100) pg/mL Total Protein (6.4-8.2) g/dL Albumin (3.40-5.00) g/dL SARS CoV-2 RNA Rapid BUCK Negative (NEGATIVE) 10/11/21 10/11/21 10/12/21 Range/Units 17:34 21:04 07:15 WBC 13.82 H (5.00-10.00) 10^3/uL RBC 3.54 L (4.50-6.00) 10^6/uL Hgb 10.4 L (13.0-17.0) g/dL Hct 32.1 L (40.0-52.0) % MCV 90.7 (82.0-92.0) fL MCH 29.4 (27.0-31.0) pg MCHC 32.4 (32.0-36.0) g/dL RDW 13.6 (11.5-14.5) % Plt Count 249 (150-400) 10^3/uL MPV 11.4 H (7.4-10.4) fL Immature Gran % (Auto) 2.3 (0.0-5.0) % Neut % (Auto) 62.6 (50.0-70.0) % Lymph % (Auto) 21.6 (20.0-40.0) % [place] % (Auto) 10.3 H (2.0-8.0) % Eos % (Auto) 3.0 (1.0-3.0) % Baso % (Auto) 0.2 (0.0-1.0) % Neut # (Auto) 8.65 H (2.50-7.00) 10^3/uL Lymph # (Auto) 2.98 (1.00-4.00) 10^3/uL [place] # (Auto) 1.42 H (0.10-0.80) 10^3/uL Eos # (Auto) 0.42 H (0.10-0.30) 10^3/uL Baso # (Auto) 0.03 (0.00-0.10) 10^3/uL Immature Gran # (Auto) 0.32 (0.00-0.50) 10^3/uL Sodium (136-145) mmol/L Potassium (3.5-5.1) mmol/L Chloride (98-107) mmol/L Carbon Dioxide (21.0-32.0) mmol/L Anion Gap (5-15) mmol/L BUN (7-18) mg/dL Creatinine (0.51-1.17) mg/dL Est Cr Clr Drug Dosing mL/min Estimated GFR (MDRD) mL/min Glucose (70-140) mg/dL POC Glucose 163 H 198 H (70-140) mg/dL Calcium (8.7-10.3) mg/dL Total Bilirubin (0.2-1.0) mg/dL AST (15-37) U/L ALT (14-63) U/L Alkaline Phosphatase (46-116) U/L B-Natriuretic Peptide (0-100) pg/mL Total Protein (6.4-8.2) g/dL Albumin (3.40-5.00) g/dL SARS CoV-2 RNA Rapid BUCK (NEGATIVE) 10/12/21 10/12/21 Range/Units 07:15 07:50 WBC (5.00-10.00) 10^3/uL RBC (4.50-6.00) 10^6/uL Hgb (13.0-17.0) g/dL Hct (40.0-52.0) % MCV (82.0-92.0) fL MCH (27.0-31.0) pg MCHC (32.0-36.0) g/dL RDW (11.5-14.5) % Plt Count (150-400) 10^3/uL MPV (7.4-10.4) fL Immature Gran % (Auto) (0.0-5.0) % Neut % (Auto) (50.0-70.0) % Lymph % (Auto) (20.0-40.0) % [place] % (Auto) (2.0-8.0) % Eos % (Auto) (1.0-3.0) % Baso % (Auto) (0.0-1.0) % Neut # (Auto) (2.50-7.00) 10^3/uL Lymph # (Auto) (1.00-4.00) 10^3/uL [place] # (Auto) (0.10-0.80) 10^3/uL Eos # (Auto) (0.10-0.30) 10^3/uL Baso # (Auto) (0.00-0.10) 10^3/uL Immature Gran # (Auto) (0.00-0.50) 10^3/uL Sodium 145 (136-145) mmol/L Potassium 3.8 (3.5-5.1) mmol/L Chloride 109 H (98-107) mmol/L Carbon Dioxide 25.8 (21.0-32.0) mmol/L Anion Gap 14.0 (5-15) mmol/L BUN 17 (7-18) mg/dL Creatinine 1.33 H (0.51-1.17) mg/dL Est Cr Clr Drug Dosing 41.68 mL/min Estimated GFR (MDRD) 51 mL/min Glucose 106 (70-140) mg/dL POC Glucose 105 (70-140) mg/dL Calcium 8.0 L (8.7-10.3) mg/dL Total Bilirubin 0.3 (0.2-1.0) mg/dL AST 40 H (15-37) U/L ALT 32 (14-63) U/L Alkaline Phosphatase 58 (46-116) U/L B-Natriuretic Peptide (0-100) pg/mL Total Protein 5.9 L (6.4-8.2) g/dL Albumin 1.90 L (3.40-5.00) g/dL SARS CoV-2 RNA Rapid BUCK (NEGATIVE) Med Orders - Current: Current Medications Acetaminophen (Acetaminophen 500 Mg Tab) 1,000 mg PO Q6H PRN PRN Reason: Fever Last Admin: 10/10/21 23:34 Dose: 1,000 mg Documented by: Albuterol/Ipratropium (Albuterol/Ipratropium 3.0-0.5 Mg/3 Ml Neb Soln) 3 ml NEB Q6HRRT [facility] Last Admin: 10/12/21 04:09 Dose: 3 ml Documented by: Aspirin (Aspirin 81 Mg Tab.Ec) 81 mg PO DAILY [facility] Last Admin: 10/12/21 08:56 Dose: 81 mg Documented by: Ceftriaxone Sodium (Ceftriaxone 1 Gm Vial) 1 gm IVPUSH Q24H [facility] Stop: 10/13/21 16:01 Last Admin: 10/11/21 15:35 Dose: 1 gm Documented by: Dextrose/Water (50% Dextrose In Water 50 Ml Syringe) 50 ml IVPUSH ASDIRECTED PRN PRN Reason: Hypoglycemia Enoxaparin Sodium (Enoxaparin 40 Mg/0.4 Ml Syringe) 40 mg SUBCUT BEDTIME [facility] Last Admin: 10/11/21 20:23 Dose: 40 mg Documented by: Furosemide (Furosemide 40 Mg Tab) 40 mg PO DAILY [facility] Glucagon (Glucagon,Human Recombinant 1 Mg Vial) 1 mg IM ASDIRECTED PRN PRN Reason: Hypoglycemia Guaifenesin (Guaifenesin 600 Mg Tab.Er) 600 mg PO BID [facility] Last Admin: 10/12/21 08:56 Dose: 600 mg Documented by: Azithromycin 500 mg/ Sodium (Chloride) 250 mls @ 250 mls/hr IV Q24H [facility] Stop: 10/13/21 22:00 Last Admin: 10/11/21 15:48 Dose: 250 mls/hr Documented by: Insulin Aspart (Insulin Aspart 100 Units/Ml 3 Ml Pen) 0 unit SUBCUT WITHMEALSANDBED [facility]; Protocol Last Admin: 10/12/21 07:52 Dose: Not Given Documented by: Loperamide HCl (Loperamide 2 Mg Cap) 2 mg PO BID PRN PRN Reason: Diarrhea Last Admin: 10/11/21 11:02 Dose: 2 mg Documented by: Miscellaneous Information (Remove Patch) 1 ea TRDERM DAILY [facility] Last Admin: 10/12/21 08:57 Dose: 1 ea Documented by: Nicotine (Nicotine 21 Mg/24 Hr Patch) 21 mg TRDERM DAILY [facility] Last Admin: 10/12/21 08:57 Dose: 21 mg Documented by: Pregabalin (Pregabalin 25 Mg Cap) 75 mg PO BID [facility] Last Admin: 10/12/21 08:56 Dose: 75 mg Documented by: Simvastatin (Simvastatin 20 Mg Tab) 40 mg PO BEDTIME [facility] Last Admin: 10/11/21 20:23 Dose: 40 mg Documented by: Discontinued Medications Azithromycin (Azithromycin 250 Mg Tab) Confirm Administered Dose 500 mg .ROUTE .STK-MED ONE Stop: 10/08/21 16:11 Last Admin: 10/08/21 18:21 Dose: Not Given Documented by: Azithromycin (Azithromycin 250 Mg Tab) 500 mg PO ONETIME ONE Stop: 10/08/21 18:19 Last Admin: 10/08/21 16:15 Dose: 500 mg Documented by: Ceftriaxone Sodium (Ceftriaxone 1 Gm Vial) Confirm Administered Dose 1 gm .ROUTE .STK-MED ONE Stop: 10/08/21 16:11 Last Admin: 10/08/21 18:20 Dose: Not Given Documented by: Ceftriaxone Sodium (Ceftriaxone 1 Gm Vial) 1 gm IVPUSH Q24H ONE Stop: 10/08/21 18:31 Last Admin: 10/08/21 16:15 Dose: 1 gm Documented by: Ceftriaxone Sodium (Ceftriaxone 1 Gm Vial) 1 gm IVPUSH ONETIME ONE Stop: 10/12/21 09:31 Furosemide (Furosemide 40 Mg/4 Ml Vial) 20 mg IVPUSH NOW ONE Stop: 10/11/21 10:03 Last Admin: 10/11/21 10:56 Dose: 20 mg Documented by: Furosemide (Furosemide 40 Mg/4 Ml Vial) 20 mg IVPUSH NOW ONE Stop: 10/11/21 15:08 Last Admin: 10/11/21 15:42 Dose: 20 mg Documented by: Sodium Chloride (Normal Saline) 1,000 mls @ 999 mls/hr IV .BOLUS ONE Stop: 10/08/21 16:01 Last Admin: 10/08/21 15:25 Dose: 999 mls/hr Documented by: Sodium Chloride (Normal Saline) 1,000 mls @ 75 mls/hr IV ASDIRECTED SHANTELL Last Infusion: 10/11/21 03:47 Dose: 75 mls/hr Documented by: Sodium Chloride (Normal Saline) 500 mls @ 500 mls/hr IV ONETIME ONE Stop: 10/08/21 23:29 Last Admin: 10/08/21 22:30 Dose: 500 mls/hr Documented by: Sodium Chloride (Normal Saline) 500 mls @ 500 mls/hr IV .BOLUS ONE Stop: 10/09/21 10:28 Last Admin: 10/09/21 10:32 Dose: Not Given Documented by: Lorazepam (Lorazepam 0.5 Mg Tab) 0.5 mg PO ONETIME PRN PRN Reason: Anxiety - Exam Quality Assessment: Reports: Supplemental Oxygen General: Reports: Alert, Cooperative, No Acute Distress HEENT: Reports: Mucous Membr. Moist/Lamkin Neck: Reports: Supple Lungs: Reports: Normal Respiratory Effort, Crackles (fine crackles in bilateral bases) Cardiovascular: Reports: Regular Rate, Regular Rhythm, No Murmurs GI/Abdominal Exam: Normal Bowel Sounds, Soft, Non-Tender Extremities: Normal Inspection, No Pedal Edema Skin: Reports: Warm Psy/Mental Status: Reports: Alert, Normal Affect, Normal Mood
[2021-10-12 12:02] VITALS: BP 96/53; PULSE 78
== END 2021-10-12 11:52 | DRG 194 ==
LOC: KA.ED 14:10 → KA.MS 16:48
PROVIDERS: ADMIT Nurse Practitioner Family; ATTEND Family Medicine
DX: J18.9 Pneumonia, unspecified organism (principal); R53.1 Weakness; N25.81 Secondary hyperparathyroidism of renal origin; D72.828 Other elevated white blood cell count; R29.6 Repeated falls; H35.30 Unspecified macular degeneration; Z91.81 History of falling; N13.8 Other obstructive and reflux uropathy; Z20.822 Contact with and (suspected) exposure to COVID-19; N18.30 Chronic kidney disease, stage 3 unspecified; E78.00 Pure hypercholesterolemia, unspecified; I25.10 Atherosclerotic heart disease of native coronary artery without angina pectoris; N40.0 Benign prostatic hyperplasia without lower urinary tract symptoms; I12.9 Hypertensive chronic kidney disease with stage 1 through stage 4 chronic kidney disease, or unspecified chronic kidney disease; E11.22 Type 2 diabetes mellitus with diabetic chronic kidney disease; E55.9 Vitamin D deficiency, unspecified; Z85.828 Personal history of other malignant neoplasm of skin; F17.210 Nicotine dependence, cigarettes, uncomplicated; I95.9 Hypotension, unspecified; Z66 Do not resuscitate; N18.32 Chronic kidney disease, stage 3b; E78.5 Hyperlipidemia, unspecified; E11.42 Type 2 diabetes mellitus with diabetic polyneuropathy; D12.6 Benign neoplasm of colon, unspecified; N40.1 Benign prostatic hyperplasia with lower urinary tract symptoms; R26.9 Unspecified abnormalities of gait and mobility; I95.1 Orthostatic hypotension; E86.0 Dehydration; Z79.82 Long term (current) use of aspirin; Z79.4 Long term (current) use of insulin; Z79.899 Other long term (current) drug therapy; I25.2 Old myocardial infarction; Z86.73 Personal history of transient ischemic attack (TIA), and cerebral infarction without residual deficits
CPT/HCPCS: 36415; 71046; 80048; 80053; 82947; 83605; 83880; 85025; 87070; 87205; 94640; 96374; 99284; 99285-25; A9270-GY; J0456; J0696; J1650; J1815-GY; J1940; J7030; J7040; J7050; J7620-GY; U0002

== ENCOUNTER 2021-10-29 18:38 | Emergency (ER) | payer MEDICARE, OTHER ==
--- NOTE | 2021-10-29 19:36 | CR ---
[id number] RAD/RAD Chest PA or AP 1V EXAM: RAD Chest PA or AP 1V INDICATION: RECENT PNEUMONIA COMPARISON: October 08, 2021. DISCUSSION/IMPRESSION: Cardiomediastinal silhouette is stable in size and contour. Bibasal atelectasis. No evidence of pneumonia. No pleural effusion or pneumothorax. Mohit Fajardo DO 10/29/21 1935 Thank you for allowing us to participate in the care of your patient.
[2021-10-29 19:53] LABS: ANION GAP 17.3 mmol/L (5-15)
--- NOTE | 2021-10-29 20:31 | EDM.PDOC ---
ED HPI GENERAL MEDICAL PROBLEM - General Chief Complaint: General Stated Complaint: UNWITNESSED FALL, concern for cva Time Seen by Provider: 10/29/21 18:40 Source of Information: Reports: Patient, EMS, Longterm Records History Limitations: Reports: No Limitations - History of Present Illness INITIAL COMMENTS - FREE TEXT/NARRATIVE: Chong is a very pleasant 85-year-old gentleman recently placed at the [facility] in [place]. Evidently he had a unwitnessed fall early this evening. The risk concerned that he had different in pupil sizes and concern for a CVA. EMS was called out and transported to the emergency room for further evaluation. Patient is under the care of Sara Rousseau nurse practitioner. Upon arrival patient is alert and oriented times 3 no acute distress. There is no evidence of of dilation of either of his pupil he does have a mild stigmatism on the right side. He is able to answer my questions appropriately he is alert to the place, time, date. He is not having any pronounced weakness no drooping of the face. He is not having any motor weaknesses. He is nontoxic-appearing. Did have a recent admission to [facility] back in September for, CAP, falls generalized weakness, peripheral edema and elevated BNP. He did have a slightly elevated white count of 13,000 back on October 17. Patient was not experiencing any shortness of breath or wheezing no chest pain or palpations currently at this time he denies any orthopnea or PND. Not present with any peripheral edema today. Onset: Today Duration: Minutes:, Resolved Prior to Arrival Location: Reports: Generalized Severity: Mild Improves with: Reports: None Worsens with: Reports: None Context: Reports: Other (Possible fall) Associated Symptoms: Denies: Confusion, Chest Pain, Cough, Diaphoresis, Fever/Chills, Headaches, Nausea/Vomiting, Shortness of Breath, Syncope, Weakness - Related Data Allergies Allergy/AdvReac Type Severity Reaction Status Date / Time No Known Drug Allergies Allergy Cannot Verified 10/29/21 19:24 Remember Home Meds: Home Meds Aspirin [Halfprin] 81 mg PO QAM 01/24/19 [History] Insulin Degludec [Tresiba] 82 unit SQ BEDTIME 01/24/19 [History] Cholecalciferol (Vitamin D3) [Vitamin D3] 1,000 unit PO QAM 06/27/19 [History] Dulaglutide [Trulicity] 1.5 mg SUBCUT WE 11/25/20 [History] Pregabalin [Lyrica] 75 mg PO BID 11/25/20 [History] Beta-Carotene(A) w/C & E/Min [Prosight] 1 tab PO DAILY 09/18/21 [History] Insulin Aspart [Insulin Aspart Flexpen] 6 unit SQ BIDAC 09/18/21 [History] Simvastatin [Zocor] 40 mg PO BEDTIME 09/18/21 [History] Loperamide [Imodium] 2 mg PO BID PRN cap 10/12/21 [Rx] guaiFENesin [Mucinex] 600 mg PO BID #14 tab.er 10/12/21 [Rx] Acetaminophen 650 mg PO TIDAC PRN 10/29/21 [History] Furosemide [Lasix] 40 mg PO QAM 10/29/21 [History] Nicotine [Habitrol] 21 mg TRDERM QAM 10/29/21 [History] Past Medical History HEENT History: Reports: Cataract, Macular Degeneration, Other (See Below) Other HEENT History: verrucous carcinoma of oral cavity. dysphagia. chronic rhinitis Cardiovascular History: Reports: CAD, High Cholesterol, Hypertension, [place] Other Respiratory History: pneumonia d/t MRSA Gastrointestinal History: Reports: None, Chronic Constipation Other Gastrointestinal History: enterocolitis d/t Cdiff Genitourinary History: Reports: BPH, Other (See Below), Renal Disease Other Genitourinary History: CKD STAGE 3. 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 Dermatologic History: Reports: Other (See Below) Other Dermatologic History: ATOPIC DERMATITIS - Infectious Disease History Infectious Disease History: Reports: C-Difficile, Chicken Pox, Measles, MRSA - Past Surgical History HEENT Surgical History: Reports: Cataract Surgery, Tonsillectomy, Other (See Below) Other HEENT Surgeries/Procedures: panendoscopy Cardiovascular Surgical History: Reports: None GI Surgical History: Reports: Appendectomy, Colonoscopy Other GI Surgeries/Procedures: 11/29/20: colonoscopy = pancolitis & tubular adenoma x3 Endocrine Surgical History: Reports: None Neurological Surgical History: Reports: None Musculoskeletal Surgical History: Reports: Shoulder Surgery Social & Family History - Family History Family Medical History: No Pertinent Family History HEENT: Reports: None - Caffeine Use Caffeine Use: Reports: Soda Other Caffeine Use: regular - Living Situation & Occupation Living situation: Reports: ED ROS GENERAL - Review of Systems Review Of Systems: See Below Constitutional: Reports: No Symptoms HEENT: Reports: No Symptoms Respiratory: Reports: No Symptoms Cardiovascular: Reports: No Symptoms Endocrine: Reports: No Symptoms GI/Abdominal: Reports: No Symptoms : Reports: No Symptoms Musculoskeletal: Reports: No Symptoms Skin: Reports: No Symptoms Neurological: Reports: No Symptoms Psychiatric: Reports: No Symptoms Hematologic/Lymphatic: Reports: No Symptoms Immunologic: Reports: No Symptoms ED EXAM, GENERAL - Physical Exam Exam: See Below Exam Limited By: No Limitations General Appearance: Alert, WD/WN, No Apparent Distress Eye Exam: Bilateral Eye: EOMI, PERRL Ears: Normal External Exam, Normal Canal, Normal TMs Ear Exam: Bilateral Ear: Auricle Normal, Canal Normal, TM normal Nose: Normal Inspection, Normal Mucosa, No Blood Throat/Mouth: Normal Inspection, Normal Oropharynx, Normal Voice, No Airway Compromise Head: Atraumatic, Normocephalic Neck: Normal Inspection, Supple, Non-Tender, Full Range of Motion. No: L ymphadenopathy (L), Lymphadenopathy (R) Respiratory/Chest: No Respiratory Distress, Lungs Clear, Normal Breath Sounds, No Accessory Muscle Use, Chest Non-Tender. No: Crackles, Rales, Rhonchi, Wheezing Cardiovascular: Regular Rate, Rhythm Peripheral Pulses: 2+: Carotid (L), Carotid (R) GI/Abdominal: Normal Bowel Sounds, Soft, Non-Tender Back Exam: Normal Inspection Extremities: Normal Inspection, Normal Range of Motion, Non-Tender, No Pedal Edema, Normal Capillary Refill Neurological: Alert, Oriented, CN II-XII Intact, Normal Cognition, Normal Reflexes, No Motor/Sensory Deficits Psychiatric: Normal Affect, Normal Mood Skin Exam: Warm, Dry, Intact, Normal Color, No Rash Lymphatic: No Adenopathy #1 Interpretation EKG Date: 10/29/21 Time: 19:25 Rhythm: NSR Rate (Beats/Min): 99 [place]: Normal P-Wave: Present QRS: RBBB ST-T: Normal QT: Normal Comparison: NA - No Prior EKG EKG Interpretation Comments: Normal sinus rhythm right bundle branch block Course - Vital Signs Last Recorded V/S: Last Vital Signs Temp 98.4 F 10/29/21 19:02 Pulse 102 H 10/29/21 19:02 Resp 18 10/29/21 19:02 BP 119/99 H 10/29/21 19:02 Pulse Ox 89 L 10/29/21 19:02 - Orders/Labs/Meds Orders: Active Orders 24 hr Category Date Time Status Head wo Cont [CT] Stat Exams 10/29/21 19:20 Ordered EKG 12 Lead [EK] Stat Ther 10/29/21 19:18 Ordered Labs: Laboratory Tests 10/29/21 10/29/21 Range/Units 19:18 19:18 WBC 16.37 H (5.00-10.00) 10^3/uL RBC 4.66 (4.50-6.00) 10^6/uL Hgb 13.8 D (13.0-17.0) g/dL Hct 42.3 (40.0-52.0) % MCV 90.8 (82.0-92.0) fL MCH 29.6 (27.0-31.0) pg MCHC 32.6 (32.0-36.0) g/dL RDW 13.6 (11.5-14.5) % Plt Count 223 (150-400) 10^3/uL MPV 11.4 H (7.4-10.4) fL Immature Gran % (Auto) 1.2 (0.0-5.0) % Neut % (Auto) 75.4 H (50.0-70.0) % Lymph % (Auto) 11.1 L (20.0-40.0) % [place] % (Auto) 11.9 H (2.0-8.0) % Eos % (Auto) 0.1 L (1.0-3.0) % Baso % (Auto) 0.3 (0.0-1.0) % Neut # (Auto) 12.35 H (2.50-7.00) 10^3/uL Lymph # (Auto) 1.82 (1.00-4.00) 10^3/uL [place] # (Auto) 1.94 H (0.10-0.80) 10^3/uL Eos # (Auto) 0.02 L (0.10-0.30) 10^3/uL Baso # (Auto) 0.05 (0.00-0.10) 10^3/uL Immature Gran # (Auto) 0.19 (0.00-0.50) 10^3/uL Sodium 139 (136-145) mmol/L Potassium 4.3 (3.5-5.1) mmol/L Chloride 101 (98-107) mmol/L Carbon Dioxide 25.0 (21.0-32.0) mmol/L Anion Gap 17.3 H (5-15) mmol/L BUN 39 H (7-18) mg/dL Creatinine 1.71 H (0.51-1.17) mg/dL Est Cr Clr Drug Dosing 29.44 mL/min Estimated GFR (MDRD) 38 mL/min Glucose 180 H (70-140) mg/dL Calcium 8.5 L (8.7-10.3) mg/dL B-Natriuretic Peptide 100 (0-100) pg/mL - Radiology Interpretation Free Text/Narrative:: Chest PA 1 view Comparison: October 08, 2021 Discussion/impression: Findings: No intracranial mass, midline shift, hydrocephalus, or acute hemorrhage. Mild atrophy-like change. Mild mucosal thickening in the sinuses. No fluid levels. The orbits are unremarkable. No skull fracture. Impression: No acute intracranial findings - Re-Assessments/Exams Free Text/Narrative Re-Assessment/Exam: 10/29/21 20:39 Patient has no complaints currently. He denies any headache. He has no shortness of breath. He is interactive answers all questions appropriately. There is no sign of neurologic deficit no facial droop. No weakness in his extremities. His x-ray was repeated in the chest. Showed mild bibasilar atelectasis no evidence of pneumonia no pleural effusion or pneumothorax. CT of his head shows no acute intracranial findings. Patient is in agreements to going back to the senior living. He is doing quite well. Departure - Departure Time of Disposition: 20:43 Disposition: DC/Tfer to [facility] 03 Condition: Good Clinical Impression: Neutrophilic leukocytosis Fall Qualifiers: Encounter type: initial encounter Qualified Code(s): W19.XXXA - Unspecified fall, initial encounter - Discharge Information Referrals: Ashley Rene [employer] [Primary Care Provider] - Sepsis Event Note (ED) - Focused Exam Vital Signs: Vital Signs Temp Pulse Resp BP Pulse Ox 10/29/21 19:02 98.4 F 102 H 18 119/99 H 89 L - My Orders Last 24 Hours: My Active Orders 10/29/21 19:18 EKG 12 Lead [EK] Stat 10/29/21 19:20 Head wo Cont [CT] Stat - Assessment/Plan Last 24 Hours: My Active Orders 10/29/21 19:18 EKG 12 Lead [EK] Stat 10/29/21 19:20 Head wo Cont [CT] Stat Assessment:: Fall Neutrophilic leukocytosis, slight increase elevation from last lab result on October 17, 2021 white blood cell count was 13,000 at that time currently is 16,000. History of chronic kidney disease History of secondary hyperparathyroidism History of squamous cell carcinoma History of anxiety: Stable Plan: CT of the head is negative for intracranial findings. No evidence of CVA. Chest x-ray looks unremarkable. Patient has slightly elevated white count from October 17 white blood cell count was 13,000 currently is 16,000. Discussed these findings with Sara Rousseau her primary care. We will go ahead and proceed with repeat CBC with differential on Sunday with follow-up with primary care. Patient will return back to [facility].
[2021-10-29 22:06] VITALS: BP 94/54; PULSE 93
--- NOTE | 2021-10-30 11:55 | CT ---
[id number] CT/CT Head WO IV EXAM: CT Head WO IV CLINICAL DATA: FALL, POSSIBLE TIA, OVA COMPARISON STUDY: None FINDINGS: No intracranial hemorrhage, extra-axial fluid collection, mass, or acute ischemia. Generalized parenchymal atrophy with scattered areas of nonspecific white matter disease, commonly seen as sequela of chronic microvascular ischemia. Soft tissues are unremarkable. Paranasal sinuses and mastoid air cells are clear. IMPRESSION: No acute intracranial findings. Mohit Fajardo DO 10/30/21 [id number] Thank you for allowing us to participate in the care of your patient.
== END 2021-10-29 21:10 ==
LOC: KA.ED 18:38
DX: D72.828 Other elevated white blood cell count (principal); I12.9 Hypertensive chronic kidney disease with stage 1 through stage 4 chronic kidney disease, or unspecified chronic kidney disease; E11.22 Type 2 diabetes mellitus with diabetic chronic kidney disease; N18.30 Chronic kidney disease, stage 3 unspecified; E78.00 Pure hypercholesterolemia, unspecified; I25.10 Atherosclerotic heart disease of native coronary artery without angina pectoris; Z79.899 Other long term (current) drug therapy; Z79.4 Long term (current) use of insulin; Z79.82 Long term (current) use of aspirin
CPT/HCPCS: 36415; 70450; 71045; 80048; 83880; 85025; 93005; 93010; 99284; 99284-25

== ENCOUNTER 2021-11-10 18:39 | Emergency (ER) | payer MEDICARE, OTHER ==
[~2021-11-10 18:39] MED LIST changes: -Moxifloxacin 0.5% Ophth Soln 3 ML Bottle EYELF SCH; -Moxifloxacin 0.5% Ophth Soln 3 ML Bottle EYERT ONE
--- NOTE | 2021-11-10 18:49 | EDM.PDOC ---
ED HPI GENERAL MEDICAL PROBLEM - General Chief Complaint: General Stated Complaint: WEAKNESS Time Seen by Provider: 11/10/21 18:47 Source of Information: Reports: EMS, Prison Records History Limitations: Reports: Other (DEMENTIA) - History of Present Illness INITIAL COMMENTS - FREE TEXT/NARRATIVE: 85 YO WM PRESENTS TO ER BY EMS FROM SKILLED NURSING DUE TO COMPLAINS OF WEAKNE SS/MORE RESTLESS TODAY. PT SITTING IN BED IN NO DISTRESS WITHOUT COMPLAINTS. HISTORY LIMITED BY POOR COGNITION AND DEMENTIA. PT DENIES CHEST PAIN, SHORTNESS OF BREATH, NO NAUSEA/VOMITING, NO FEVER/CHILLS. PT RECENTLY DIAGNOSED WITH COVID-19 AND RECEIVED MONOCLONAL ANTIBODIES. DIAGNOSIS WAS 9 DAYS AGO. PT EATING AND DRINKING WELL. NO EVIDENCE OF NEUROLOGICAL DEFICITS- NO SLURRED SPEECH, NO FACIAL DROOP, NO PRONATOR DRIFT. PT ALERT AND ORIENTED TO SELF ONLY. Onset: Today Location: Reports: Generalized Improves with: Reports: None Worsens with: Reports: None Associated Symptoms: Reports: Confusion, Malaise. Denies: Chest Pain, Fever/Chills, Nausea/Vomiting, Shortness of Breath, Weakness - Related Data Allergies Allergy/AdvReac Type Severity Reaction Status Date / Time No Known Drug Allergies Allergy Cannot Verified 11/10/21 19:16 Remember Home Meds: Home Meds Cholecalciferol (Vitamin D3) [Vitamin D3] 1,000 unit PO QAM 06/27/19 [History] Pregabalin [Lyrica] 75 mg PO BID 11/25/20 [History] Beta-Carotene(A) w/C & E/Min [Prosight] 1 tab PO DAILY 09/18/21 [History] Simvastatin [Zocor] 40 mg PO BEDTIME 09/18/21 [History] Loperamide [Imodium] 2 mg PO BID PRN cap 10/12/21 [Rx] guaiFENesin [Mucinex] 600 mg PO BID #14 tab.er 10/12/21 [Rx] Acetaminophen 650 mg PO TIDAC PRN 10/29/21 [History] Furosemide [Lasix] 20 mg PO QAM 10/29/21 [History] Nicotine [Habitrol] 21 mg TRDERM QAM 10/29/21 [History] Dulaglutide [Trulicity] 1.5 mg SQ DAILY 11/10/21 [History] Furosemide [Lasix] 20 mg PO DAILY 11/10/21 [History] Insulin Aspart [NovoLOG] 6 units SQ TIDAC 11/10/21 [History] Past Medical History HEENT History: Reports: Cataract, Macular Degeneration, Other (See Below) Other HEENT History: verrucous carcinoma of oral cavity. dysphagia. chronic rhinitis Cardiovascular History: Reports: CAD, High Cholesterol, Hypertension, [place] Other Respiratory History: pneumonia d/t MRSA Gastrointestinal History: Reports: None, Chronic Constipation Other Gastrointestinal History: enterocolitis d/t Cdiff Genitourinary History: Reports: BPH, Other (See Below), Renal Disease Other Genitourinary History: CKD STAGE 3. 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 Dermatologic History: Reports: Other (See Below) Other Dermatologic History: ATOPIC DERMATITIS - Infectious Disease History Infectious Disease History: Reports: C-Difficile, Chicken Pox, Measles, MRSA - Past Surgical History HEENT Surgical History: Reports: Cataract Surgery, Tonsillectomy, Other (See Below) Other HEENT Surgeries/Procedures: panendoscopy Cardiovascular Surgical History: Reports: None GI Surgical History: Reports: Appendectomy, Colonoscopy Other GI Surgeries/Procedures: 11/29/20: colonoscopy = pancolitis & tubular adenoma x3 Endocrine Surgical History: Reports: None Neurological Surgical History: Reports: None Musculoskeletal Surgical History: Reports: Shoulder Surgery Social & Family History - Family History Family Medical History: No Pertinent Family History HEENT: Reports: None - Caffeine Use Caffeine Use: Reports: Soda Other Caffeine Use: regular - Living Situation & Occupation Living situation: Reports: ED ROS GENERAL - Review of Systems Review Of Systems: See Below Constitutional: Reports: Malaise, Weakness HEENT: Reports: No Symptoms Respiratory: Reports: No Symptoms Cardiovascular: Reports: No Symptoms Endocrine: Reports: No Symptoms GI/Abdominal: Reports: No Symptoms : Reports: No Symptoms Musculoskeletal: Reports: No Symptoms Skin: Reports: No Symptoms Neurological: Reports: Confusion. Denies: Trouble Speaking, Difficulty Walking Psychiatric: Reports: Confusion Hematologic/Lymphatic: Reports: No Symptoms Immunologic: Reports: No Symptoms ED EXAM, GENERAL - Physical Exam Exam: See Below Exam Limited By: No Limitations General Appearance: Alert, WD/WN, No Apparent Distress Head: Atraumatic, Normocephalic Neck: Normal Inspection, Supple, Non-Tender, Full Range of Motion Respiratory/Chest: No Respiratory Distress, Lungs Clear, Normal Breath Sounds, No Accessory Muscle Use, Chest Non-Tender Cardiovascular: Normal Peripheral Pulses, Regular Rate, Rhythm, No Edema, No Gallop, No JVD, No Murmur, No Rub GI/Abdominal: Normal Bowel Sounds, Soft, Non-Tender, No Organomegaly, No Distention, No Abnormal Bruit, No Mass Extremities: Normal Inspection, Normal Range of Motion, Non-Tender, Normal Capillary Refill, No Pedal Edema Neurological: Alert, CN II-XII Intact, Normal Gait, No Motor/Sensory Deficits Psychiatric: Normal Affect, Normal Mood Skin Exam: Warm, Dry, Intact, Normal Color, No Rash Lymphatic: No Adenopathy #1 Interpretation EKG Date: 11/10/21 Time: 19:13 Rhythm: NSR Rate (Beats/Min): 78 [place]: Normal P-Wave: Present QRS: RBBB ST-T: Normal QT: Normal Course - Vital Signs Last Recorded V/S: Last Vital Signs Temp 96.6 F L 11/10/21 18:47 Pulse 83 11/10/21 20:15 Resp 13 11/10/21 20:15 BP 130/76 11/10/21 20:15 Pulse Ox 94 L 11/10/21 20:15 - Orders/Labs/Meds Orders: Active Orders 24 hr Category Date Time Status Peripheral IV Care [RC] . DIRECTED Care 11/10/21 18:39 Active Sodium Chloride 0.9% [Saline Flush] Med 11/10/21 18:39 Active 10 ml FLUSH Q8HR PRN Peripheral IV Insertion Adult [OM.PC] Routine Oth 11/10/21 18:39 Ordered EKG 12 Lead [EK] Stat Ther 11/10/21 18:49 Ordered Medication Orders Sodium Chloride (Sodium Chloride 0.9% 10 Ml Syringe) 10 ml FLUSH Q8HR PRN PRN Reason: keep vein open Labs: Laboratory Tests 11/10/21 11/10/21 11/10/21 Range/Units 18:49 18:49 18:49 WBC 8.67 (5.00-10.00) 10^3/uL RBC 4.75 (4.50-6.00) 10^6/uL Hgb 13.6 (13.0-17.0) g/dL Hct 42.2 (40.0-52.0) % MCV 88.8 (82.0-92.0) fL MCH 28.6 (27.0-31.0) pg MCHC 32.2 (32.0-36.0) g/dL RDW 13.6 (11.5-14.5) % Plt Count 242 (150-400) 10^3/uL MPV 12.5 H (7.4-10.4) fL Immature Gran % (Auto) 0.9 (0.0-5.0) % Neut % (Auto) 53.7 (50.0-70.0) % Lymph % (Auto) 26.4 (20.0-40.0) % [place] % (Auto) 13.7 H (2.0-8.0) % Eos % (Auto) 5.1 H (1.0-3.0) % Baso % (Auto) 0.2 (0.0-1.0) % Neut # (Auto) 4.65 (2.50-7.00) 10^3/uL Lymph # (Auto) 2.29 (1.00-4.00) 10^3/uL [place] # (Auto) 1.19 H (0.10-0.80) 10^3/uL Eos # (Auto) 0.44 H (0.10-0.30) 10^3/uL Baso # (Auto) 0.02 (0.00-0.10) 10^3/uL Immature Gran # (Auto) 0.08 (0.00-0.50) 10^3/uL Sodium 140 (136-145) mmol/L Potassium 4.5 (3.5-5.1) mmol/L Chloride 104 (98-107) mmol/L Carbon Dioxide 27.9 (21.0-32.0) mmol/L Anion Gap 12.6 (5-15) mmol/L BUN 34 H (7-18) mg/dL Creatinine 1.57 H (0.51-1.17) mg/dL Est Cr Clr Drug Dosing 32.07 mL/min Estimated GFR (MDRD) 42 mL/min Glucose 167 H (70-140) mg/dL Lactic Acid 1.2 (0.4-2.0) mmol/L Calcium 8.9 (8.7-10.3) mg/dL Total Bilirubin 0.6 (0.2-1.0) mg/dL AST 27 (15-37) U/L ALT 16 (14-63) U/L Alkaline Phosphatase 76 (46-116) U/L Troponin I High Sens 13.400 (0-76.000) pg/mL Total Protein 8.3 H (6.4-8.2) g/dL Albumin 3.29 L (3.40-5.00) g/dL Specimen Type Urine Color (YELLOW) Urine Appearance (CLEAR) Urine pH (5.0-9.0) Ur Specific [place] (1.005-1.030) Urine Protein (NEGATIVE) mg/dL Urine Glucose (UA) (NEGATIVE) mg/dL Urine Ketones (NEGATIVE) mg/dL Urine Occult Blood (NEGATIVE) Urine Nitrite (NEGATIVE) Urine Bilirubin (NEGATIVE) Urine Urobilinogen (0.2-1.0) E.U./dL Ur Leukocyte Esterase (NEGATIVE) Urine RBC (0-5) /HPF Urine WBC (0-5) /HPF Ur Epithelial Cells /LPF Amorphous Sediment (0/HPF) /HPF Urine Bacteria (NONE TO FEW) /HPF Urine Mucus (NEGATIVE) /LPF 11/10/21 Range/Units 19:34 WBC (5.00-10.00) 10^3/uL RBC (4.50-6.00) 10^6/uL Hgb (13.0-17.0) g/dL Hct (40.0-52.0) % MCV (82.0-92.0) fL MCH (27.0-31.0) pg MCHC (32.0-36.0) g/dL RDW (11.5-14.5) % Plt Count (150-400) 10^3/uL MPV (7.4-10.4) fL Immature Gran % (Auto) (0.0-5.0) % Neut % (Auto) (50.0-70.0) % Lymph % (Auto) (20.0-40.0) % [place] % (Auto) (2.0-8.0) % Eos % (Auto) (1.0-3.0) % Baso % (Auto) (0.0-1.0) % Neut # (Auto) (2.50-7.00) 10^3/uL Lymph # (Auto) (1.00-4.00) 10^3/uL [place] # (Auto) (0.10-0.80) 10^3/uL Eos # (Auto) (0.10-0.30) 10^3/uL Baso # (Auto) (0.00-0.10) 10^3/uL Immature Gran # (Auto) (0.00-0.50) 10^3/uL Sodium (136-145) mmol/L Potassium (3.5-5.1) mmol/L Chloride (98-107) mmol/L Carbon Dioxide (21.0-32.0) mmol/L Anion Gap (5-15) mmol/L BUN (7-18) mg/dL Creatinine (0.51-1.17) mg/dL Est Cr Clr Drug Dosing mL/min Estimated GFR (MDRD) mL/min Glucose (70-140) mg/dL Lactic Acid (0.4-2.0) mmol/L Calcium (8.7-10.3) mg/dL Total Bilirubin (0.2-1.0) mg/dL AST (15-37) U/L ALT (14-63) U/L Alkaline Phosphatase (46-116) U/L Troponin I High Sens (0-76.000) pg/mL Total Protein (6.4-8.2) g/dL Albumin (3.40-5.00) g/dL Specimen Type [place] Urine Color Yellow (YELLOW) Urine Appearance Clear (CLEAR) Urine pH 5.5 (5.0-9.0) Ur Specific [place] 1.025 (1.005-1.030) Urine Protein 30 H (NEGATIVE) mg/dL Urine Glucose (UA) Negative (NEGATIVE) mg/dL Urine Ketones Negative (NEGATIVE) mg/dL Urine Occult Blood Negative (NEGATIVE) Urine Nitrite Negative (NEGATIVE) Urine Bilirubin Negative (NEGATIVE) Urine Urobilinogen 0.2 (0.2-1.0) E.U./dL Ur Leukocyte Esterase Negative (NEGATIVE) Urine RBC 0-5 (0-5) /HPF Urine WBC 0-5 (0-5) /HPF Ur Epithelial Cells Occasional /LPF Amorphous Sediment Rare (0/HPF) /HPF Urine Bacteria Not seen (NONE TO FEW) /HPF Urine Mucus Few H (NEGATIVE) /LPF Meds: Medications Generic Name Dose Route Start Last Admin Trade Name Freq PRN Reason Stop Dose Admin Sodium Chloride 10 ml 11/10/21 18:39 Sodium Chloride 0.9% 10 Ml Syringe FLUSH Q8HR PRN keep vein open - Radiology Interpretation Free Text/Narrative:: CXR-NAD Departure - Departure Time of Disposition: 20:06 Disposition: DC/Tfer to [facility] 63 Condition: Good Clinical Impression: Generalized weakness - Discharge Information Instructions: Weakness, [id number] Referrals: Catherine Choe MD [Primary Care Provider] - Forms: ED Department Discharge Additional Instructions: 1. DISCHARGE TO [facility] 2. CONTINUE CURRENT MEDICATIONS 3. FOLLOW UP WITH PCP NEEDED 4. RETURN TO ER FOR WORSENING SYMPTOMS Sepsis Event Note (ED) - Focused Exam Vital Signs: Vital Signs Temp Pulse Resp BP Pulse Ox 11/10/21 20:15 83 13 130/76 94 L 11/10/21 20:01 81 19 95/72 93 L 11/10/21 19:46 84 12 119/80 92 L 11/10/21 19:30 81 20 121/81 89 L 11/10/21 19:15 79 18 129/76 90 L 11/10/21 19:00 81 19 127/77 92 L 11/10/21 18:47 96.6 F L 83 14 127/87 93 L - My Orders Last 24 Hours: My Active Orders 11/10/21 18:39 Peripheral IV Care [RC] . DIRECTED Sodium Chloride 0.9% [Saline Flush] 10 ml FLUSH Q8HR PRN Peripheral IV Insertion Adult [OM.PC] Routine 11/10/21 18:49 EKG 12 Lead [EK] Stat - Assessment/Plan Last 24 Hours: My Active Orders 11/10/21 18:39 Peripheral IV Care [RC] . DIRECTED Sodium Chloride 0.9% [Saline Flush] 10 ml FLUSH Q8HR PRN Peripheral IV Insertion Adult [OM.PC] Routine 11/10/21 18:49 EKG 12 Lead [EK] Stat Assessment:: 1. GENERALIZED WEAKNESS Plan: 1. DISCHARGE TO [facility] 2. CONTINUE CURRENT MEDICATIONS 3. FOLLOW UP WITH PCP NEEDED 4. RETURN TO ER FOR WORSENING SYMPTOMS
[2021-11-10 19:37] LABS: ANION GAP 12.6 mmol/L (5-15)
--- NOTE | 2021-11-10 20:25 | CR ---
[id number] RAD/RAD Chest PA or AP 1V EXAM: FRONTAL CHEST INDICATION: WEAKNESS COMPARISON: October 29, 2021. DISCUSSION: Mild residual atelectasis or infiltrates in the lung bases with interval improvement. Borderline heart size with no edema. No effusions. IMPRESSION: 1. Interval improvement in basilar atelectasis and/or infiltrates. Kermit Olson MD 11/10/212024 Thank you for allowing us to participate in the care of your patient.
[2021-11-11 03:30] VITALS: BP 131/78; PULSE 81
== END 2021-11-10 21:36 ==
LOC: KA.ED 18:39 → SUPCPDRO 18:39 → KA.ED 21:36
DX: R53.1 Weakness (principal); I12.9 Hypertensive chronic kidney disease with stage 1 through stage 4 chronic kidney disease, or unspecified chronic kidney disease; E11.22 Type 2 diabetes mellitus with diabetic chronic kidney disease; N18.30 Chronic kidney disease, stage 3 unspecified; I25.2 Old myocardial infarction; I25.10 Atherosclerotic heart disease of native coronary artery without angina pectoris; N40.0 Benign prostatic hyperplasia without lower urinary tract symptoms; E78.00 Pure hypercholesterolemia, unspecified; Z79.4 Long term (current) use of insulin; Z79.899 Other long term (current) drug therapy
CPT/HCPCS: 36415; 71045; 80053; 81001; 83605; 84484; 85025; 93010; 99284; 99285-25

== ENCOUNTER 2022-01-30 10:40 | Emergency (ER) | payer MEDICARE, OTHER ==
[2022-01-30 11:23] LABS: ANION GAP 12.8 mmol/L (5-15)
[2022-01-30] MEDS ORDERED: Lidocaine 1% with EPINEPHrine 1:100,000 10 ML MDV ONE (11:26)
[2022-01-30] MEDS ORDERED: Lidocaine 1% with EPINEPHrine 1:100,000 10 ML MDV INJECT ONE (11:27)
[2022-01-30] MEDS ORDERED: Bacitracin/Neomycin/Polymyxin B Oint 28.4 GM Tube TOP ONE (12:00)
[2022-01-30] MEDS: Bacitracin/Neomycin/Polymyxin B Oint 0.9 GM U/D Packet ONE ×3 (12:01→12:11)
[2022-01-30] MEDS ORDERED: Sodium Chloride 0.9% 1,000 ML IV ONE (13:11)
[2022-01-30 14:54] VITALS: BP 147/90; PULSE 72
== END 2022-01-30 14:50 | disposition home or self-care (01) ==
LOC: KA.ED 10:40
DX: S01.81XA Laceration without foreign body of other part of head, initial encounter (principal); I25.10 Atherosclerotic heart disease of native coronary artery without angina pectoris; E78.00 Pure hypercholesterolemia, unspecified; E11.22 Type 2 diabetes mellitus with diabetic chronic kidney disease; I12.9 Hypertensive chronic kidney disease with stage 1 through stage 4 chronic kidney disease, or unspecified chronic kidney disease; N18.30 Chronic kidney disease, stage 3 unspecified; I25.2 Old myocardial infarction; Z79.4 Long term (current) use of insulin; Z79.899 Other long term (current) drug therapy; Z20.822 Contact with and (suspected) exposure to COVID-19; W19.XXXA Unspecified fall, initial encounter; Y92.59 Other trade areas as the place of occurrence of the external cause
CPT/HCPCS: 12013; 36415; 70450; 72125; 80053; 84484; 85025; 93005; 99284; 99284-25; J7030; U0002

== ENCOUNTER 2023-09-05 08:06 | Emergency (ER) | payer MEDICARE, OTHER ==
[2023-09-05 09:54] VITALS: BP 132/77; PULSE 68
== END 2023-09-05 10:06 ==
LOC: KA.ED 08:06
DX: S09.90XA Unspecified injury of head, initial encounter (principal); E78.00 Pure hypercholesterolemia, unspecified; I25.2 Old myocardial infarction; I12.9 Hypertensive chronic kidney disease with stage 1 through stage 4 chronic kidney disease, or unspecified chronic kidney disease; E11.22 Type 2 diabetes mellitus with diabetic chronic kidney disease; N18.30 Chronic kidney disease, stage 3 unspecified; W19.XXXA Unspecified fall, initial encounter
CPT/HCPCS: 70450; 82947; 99284

== ENCOUNTER 2023-09-09 10:55 | Inpatient (IN) | payer MEDICARE, OTHER ==
[2023-09-09] MEDS ORDERED: Sodium Chloride 0.9% 10 ML Syringe FLUSH PRN (11:01)
[2023-09-09 11:14] LABS: BASOPHILS ABSOLUTE AUTO 0.02 10^3/uL (0.00-0.10); BASOPHILS PERCENT AUTO 0.2 % (0.0-1.0); EOSINOPHILS ABSOLUTE AUTO 0.26 10^3/uL (0.10-0.30); EOSINOPHILS PERCENT AUTO 2.9 % (1.0-3.0); HEMATOCRIT 41.4 % (40.0-52.0); HEMOGLOBIN 13.1 g/dL (13.0-17.0); IMMATURE GRAN ABSOLUTE AUTO 0.03 10^3/uL (0.00-0.50); IMMATURE GRAN PERCENT AUTO 0.3 % (0.0-5.0); LYMPHOCYTES PERCENT AUTO 21.2 % (20.0-40.0); MEAN CORPUSCULAR HEMOGLOBIN 28.6 pg (27.0-31.0); MEAN CORPUSCULAR HGB CONC 31.6 g/dL (32.0-36.0); MEAN CORPUSCULAR VOLUME 90.4 fL (82.0-92.0); MEAN PLATELET VOLUME 11.1 fL (7.4-10.4); MONOCYTES ABSOLUTE AUTO 0.76 10^3/uL (0.10-0.80); MONOCYTES PERCENT AUTO 8.5 % (2.0-8.0); NEUTROPHILS ABSOLUTE AUTO 6.01 10^3/uL (2.50-7.00); NEUTROPHILS PERCENT AUTO 66.9 % (50.0-70.0); PLATELET COUNT,PLT 221 10^3/uL (150-400); RED BLOOD CELL COUNT 4.58 10^6/uL (4.50-6.00); RED CELL DISTRIBUTION WIDTH 12.8 % (11.5-14.5); WHITE BLOOD CELL COUNT,WBC 8.98 10^3/uL (5.00-10.00)
[2023-09-09 11:32] LABS: ALANINE AMINOTRANSFERASE,ALT 16 U/L (14-63); ALBUMIN 3.15 g/dL (3.40-5.00); ALKALINE PHOSPHATASE 76 U/L (46-116); ANION GAP 14.8 mmol/L (5-15); ASPARTATE AMNIOTRANSFERASE,AST 27 U/L (15-37); BILIRUBIN TOTAL 0.5 mg/dL (0.2-1.0); BLOOD UREA NITROGEN,BUN 39 mg/dL (7-18); CALCIUM 8.7 mg/dL (8.7-10.3); CARBON DIOXIDE,CO2 26.4 mmol/L (21.0-32.0); CHLORIDE,CL 100 mmol/L (98-107); CREATININE 1.87 mg/dL (0.51-1.17); GLUCOSE RANDOM 245 mg/dL (70-140); POTASSIUM,K 4.2 mmol/L (3.5-5.1); PROTEIN TOTAL,TP 7.7 g/dL (6.4-8.2); SODIUM,NA 137 mmol/L (136-145)
[2023-09-09 11:35] LABS: ESTIMATED GFR 34 mL/min (>=60); LACTIC ACID 2.8 mmol/L (0.4-2.0)
[2023-09-09] MEDS ORDERED: Cefepime 2 GM Vial IVPUSH ONE (11:45)
[2023-09-09] MEDS ORDERED: Sodium Chloride 0.9% 1,000 ML IV ONE (11:45)
[2023-09-09 13:18] LABS: APPEARANCE,URINE TURBID (CLEAR); BILIRUBIN,URINE NEGATIVE (NEGATIVE); COLOR,URINE LIGHT YELLOW (YELLOW); GLUCOSE,URINE NEGATIVE (NEGATIVE); KETONES,URINE NEGATIVE (NEGATIVE); LEUKOCYTE ESTERASE,URINE LARGE (NEGATIVE); NITRITE,URINE NEGATIVE (NEGATIVE); OCCULT BLOOD,URINE MODERATE (NEGATIVE); PH,URINE 5.5 (5.0-9.0); PROTEIN,URINE 30 mg/dL (NEGATIVE); UROBILINOGEN,URINE 0.2 E.U./dL (0.2-1.0)
[2023-09-09 13:27] LABS: EPITHELIAL CELLS,URINE RARE /LPF; WBC,URINE >100 /HPF (0-5)
[2023-09-09 13:32] LABS: LACTIC ACID 0.9 mmol/L (0.4-2.0)
[2023-09-09] MEDS ORDERED: Cefepime 1 GM in Sodium Chloride 0.9% 50 ML IV SCH ×2 (14:00→22:00)
[2023-09-09] MEDS ORDERED: Cefepime 2 GM in Sodium Chloride 0.9% 50 ML IV SCH (14:00)
[2023-09-09] MEDS ORDERED: Ondansetron 4 MG/2 ML SDV IV PRN (14:02)
[2023-09-09] MEDS ORDERED: Sodium Chloride 0.9% 1,000 ML IV SCH (14:02)
[2023-09-09] MEDS ORDERED: Acetaminophen 325 MG Tab PO PRN (14:02)
[2023-09-09] MEDS ORDERED: Polyethylene Glycol 3350 Powder 17 GM Packet PO PRN (14:02)
[2023-09-09] MEDS ORDERED: Glucagon,Human Recombinant 1 MG Vial IM PRN (14:16)
[2023-09-09] MEDS ORDERED: 50% Dextrose in Water 50 ML Syringe IVPUSH PRN (14:16)
[2023-09-09] MEDS: Azithromycin 500 MG in Sodium Chloride 0.9% 250 ML IV SCH (14:50)
[2023-09-09] MEDS: Insulin Lispro 100 Unit/ML 3 ML KwikPen SUBCUT SCH (18:10)
[2023-09-09] MEDS ORDERED: Cefepime 1 GM Vial ONE (20:36)
[2023-09-09] MEDS: Pregabalin 25 MG Cap PO SCH (20:45)
[2023-09-09] MEDS: Insulin Glargine,Hum.Rec.Anlog 100 UNIT/ML 3 ML Pen SUBCUT SCH (20:46)
[2023-09-09] MEDS: Cefepime 1 GM in Sodium Chloride 0.9% 50 ML IV SCH ×2 (20:46→21:08)
[2023-09-10] MEDS: Melatonin 3 MG Tab PO PRN ×2 (00:16→21:49)
[2023-09-10] MEDS ORDERED: Sodium Chloride 0.9% 100 ML IV SCH (05:00)
[2023-09-10 06:37] LABS: BACTERIA,URINE FEW /HPF (NONE TO FEW)
[2023-09-10 07:08] LABS: HEMATOCRIT 36.2 % (40.0-52.0); HEMOGLOBIN 11.4 g/dL (13.0-17.0); MEAN CORPUSCULAR HEMOGLOBIN 28.8 pg (27.0-31.0); MEAN CORPUSCULAR HGB CONC 31.5 g/dL (32.0-36.0); MEAN CORPUSCULAR VOLUME 91.4 fL (82.0-92.0); MEAN PLATELET VOLUME 10.4 fL (7.4-10.4); PLATELET COUNT,PLT 190 10^3/uL (150-400); RED BLOOD CELL COUNT 3.96 10^6/uL (4.50-6.00); RED CELL DISTRIBUTION WIDTH 12.7 % (11.5-14.5)
[2023-09-10] MEDS: Insulin Lispro 100 Unit/ML 3 ML KwikPen SUBCUT SCH ×3 (07:36→17:32)
[2023-09-10 07:59] LABS: ALBUMIN 2.54 g/dL (3.40-5.00); ANION GAP 12.3 mmol/L (5-15); BILIRUBIN TOTAL 0.4 mg/dL (0.2-1.0); CALCIUM 8.2 mg/dL (8.7-10.3); CARBON DIOXIDE,CO2 26.7 mmol/L (21.0-32.0); CREATININE 1.52 mg/dL (0.51-1.17); EST CRCL DRUG DOSING (CG) 30.8 mL/min; PROTEIN TOTAL,TP 6.5 g/dL (6.4-8.2)
[2023-09-10] MEDS: Pregabalin 25 MG Cap PO SCH ×2 (08:43→21:49)
[2023-09-10] MEDS: Sertraline 50 MG Tab PO SCH (08:43)
[2023-09-10] MEDS: Aspirin 81 MG Tab.EC PO SCH (08:44)
[2023-09-10] MEDS: Enoxaparin 30 MG/0.3 ML Syringe SUBCUT SCH (08:44)
[2023-09-10] MEDS: Cefepime 1 GM in Sodium Chloride 0.9% 50 ML IV SCH ×2 (09:36→21:49)
[2023-09-10] MEDS: Azithromycin 500 MG in Sodium Chloride 0.9% 250 ML IV SCH (14:03)
[2023-09-10] MEDS: Insulin Glargine,Hum.Rec.Anlog 100 UNIT/ML 3 ML Pen SUBCUT SCH (21:53)
[2023-09-11 07:10] LABS: HEMOGLOBIN 11.7 g/dL (13.0-17.0); MEAN CORPUSCULAR HEMOGLOBIN 28.6 pg (27.0-31.0); MEAN CORPUSCULAR HGB CONC 31.6 g/dL (32.0-36.0); MEAN CORPUSCULAR VOLUME 90.5 fL (82.0-92.0); MEAN PLATELET VOLUME 10.9 fL (7.4-10.4); PLATELET COUNT,PLT 190 10^3/uL (150-400); RED BLOOD CELL COUNT 4.09 10^6/uL (4.50-6.00); RED CELL DISTRIBUTION WIDTH 12.7 % (11.5-14.5); WHITE BLOOD CELL COUNT,WBC 9.77 10^3/uL (5.00-10.00)
[2023-09-11 07:27] LABS: ALBUMIN 2.64 g/dL (3.40-5.00); ANION GAP 10.5 mmol/L (5-15); BILIRUBIN TOTAL 0.2 mg/dL (0.2-1.0); CALCIUM 8.5 mg/dL (8.7-10.3); CARBON DIOXIDE,CO2 27.4 mmol/L (21.0-32.0); CREATININE 1.27 mg/dL (0.51-1.17); EST CRCL DRUG DOSING (CG) 36.87 mL/min; POTASSIUM,K 3.9 mmol/L (3.5-5.1); PROTEIN TOTAL,TP 6.6 g/dL (6.4-8.2)
[2023-09-11] MEDS: Insulin Lispro 100 Unit/ML 3 ML KwikPen SUBCUT SCH ×3 (07:43→17:45)
[2023-09-11] MEDS: Aspirin 81 MG Tab.EC PO SCH (08:24)
[2023-09-11] MEDS: Sertraline 50 MG Tab PO SCH (08:24)
[2023-09-11] MEDS: Pregabalin 25 MG Cap PO SCH ×2 (08:24→20:19)
[2023-09-11] MEDS: Enoxaparin 30 MG/0.3 ML Syringe SUBCUT SCH (08:25)
[2023-09-11] MEDS: Cefepime 1 GM in Sodium Chloride 0.9% 50 ML IV SCH (09:28)
[2023-09-11] MEDS: Melatonin 3 MG Tab PO PRN (20:19)
[2023-09-11] MEDS: Insulin Glargine,Hum.Rec.Anlog 100 UNIT/ML 3 ML Pen SUBCUT SCH (20:29)
[2023-09-11] MEDS ORDERED: Azithromycin 250 MG Tab PO ONE (21:00)
[2023-09-12 06:36] VITALS: BP 136/73; PULSE 62
[2023-09-12] MEDS: Insulin Lispro 100 Unit/ML 3 ML KwikPen SUBCUT SCH (07:58)
[2023-09-12] MEDS: Sertraline 50 MG Tab PO SCH (09:44)
[2023-09-12] MEDS: Pregabalin 25 MG Cap PO SCH (09:44)
[2023-09-12] MEDS: Enoxaparin 30 MG/0.3 ML Syringe SUBCUT SCH (09:44)
[2023-09-12] MEDS: Aspirin 81 MG Tab.EC PO SCH (09:44)
== END 2023-09-12 10:00 | DRG 193 ==
LOC: KA.ED 10:55 → KA.MS 12:11
PROVIDERS: ADMIT Internal Medicine; ATTEND Internal Medicine
DX: J69.0 Pneumonitis due to inhalation of food and vomit (principal); R09.02 Hypoxemia; E86.0 Dehydration; J18.9 Pneumonia, unspecified organism; G93.41 Metabolic encephalopathy; J96.01 Acute respiratory failure with hypoxia; E11.40 Type 2 diabetes mellitus with diabetic neuropathy, unspecified; N39.0 Urinary tract infection, site not specified; I25.10 Atherosclerotic heart disease of native coronary artery without angina pectoris; E21.3 Hyperparathyroidism, unspecified; E78.00 Pure hypercholesterolemia, unspecified; F17.200 Nicotine dependence, unspecified, uncomplicated; Z79.4 Long term (current) use of insulin; K59.09 Other constipation; H35.30 Unspecified macular degeneration; Z20.822 Contact with and (suspected) exposure to COVID-19; N18.30 Chronic kidney disease, stage 3 unspecified; F41.9 Anxiety disorder, unspecified; Z66 Do not resuscitate; E11.42 Type 2 diabetes mellitus with diabetic polyneuropathy; F17.210 Nicotine dependence, cigarettes, uncomplicated; N40.0 Benign prostatic hyperplasia without lower urinary tract symptoms; I12.9 Hypertensive chronic kidney disease with stage 1 through stage 4 chronic kidney disease, or unspecified chronic kidney disease; E11.22 Type 2 diabetes mellitus with diabetic chronic kidney disease; Z90.49 Acquired absence of other specified parts of digestive tract; Z79.82 Long term (current) use of aspirin; Z79.899 Other long term (current) drug therapy; Z98.890 Other specified postprocedural states; I25.2 Old myocardial infarction; Z98.49 Cataract extraction status, unspecified eye
CPT/HCPCS: 36415; 70450; 71045; 80053; 81001; 82947; 83605; 84484; 85025; 85027; 87040; 87086; 93005; 93010; 99285; A9270-GY; C1758; J0456; J0692; J1650; J3490; J7030; J7050; Q3014; U0002

== ENCOUNTER 2023-10-01 13:59 | Emergency (ER) | payer MEDICARE, OTHER ==
[2023-10-01 14:43] LABS: BASOPHILS ABSOLUTE AUTO 0.02 10^3/uL (0.00-0.10); BASOPHILS PERCENT AUTO 0.2 % (0.0-1.0); EOSINOPHILS ABSOLUTE AUTO 0.52 10^3/uL (0.10-0.30); EOSINOPHILS PERCENT AUTO 4.9 % (1.0-3.0); HEMOGLOBIN 12.3 g/dL (13.0-17.0); IMMATURE GRAN ABSOLUTE AUTO 0.08 10^3/uL (0.00-0.50); IMMATURE GRAN PERCENT AUTO 0.8 % (0.0-5.0); LYMPHOCYTES ABSOLUTE AUTO 3.38 10^3/uL (1.00-4.00); LYMPHOCYTES PERCENT AUTO 32.2 % (20.0-40.0); MEAN CORPUSCULAR HEMOGLOBIN 28.2 pg (27.0-31.0); MEAN CORPUSCULAR HGB CONC 31.5 g/dL (32.0-36.0); MEAN CORPUSCULAR VOLUME 89.4 fL (82.0-92.0); MEAN PLATELET VOLUME 11.3 fL (7.4-10.4); MONOCYTES ABSOLUTE AUTO 1.27 10^3/uL (0.10-0.80); MONOCYTES PERCENT AUTO 12.1 % (2.0-8.0); NEUTROPHILS ABSOLUTE AUTO 5.24 10^3/uL (2.50-7.00); NEUTROPHILS PERCENT AUTO 49.8 % (50.0-70.0); PLATELET COUNT,PLT 250 10^3/uL (150-400); RED BLOOD CELL COUNT 4.36 10^6/uL (4.50-6.00); WHITE BLOOD CELL COUNT,WBC 10.51 10^3/uL (5.00-10.00)
[2023-10-01 14:53] LABS: ALANINE AMINOTRANSFERASE,ALT 20 U/L (14-63); ALBUMIN 2.94 g/dL (3.40-5.00); ALKALINE PHOSPHATASE 79 U/L (46-116); ANION GAP 13.1 mmol/L (5-15); ASPARTATE AMNIOTRANSFERASE,AST 29 U/L (15-37); BILIRUBIN TOTAL 0.3 mg/dL (0.2-1.0); BLOOD UREA NITROGEN,BUN 26 mg/dL (7-18); CALCIUM 8.6 mg/dL (8.7-10.3); CARBON DIOXIDE,CO2 27.7 mmol/L (21.0-32.0); CHLORIDE,CL 102 mmol/L (98-107); CREATININE 1.44 mg/dL (0.51-1.17); GLUCOSE RANDOM 174 mg/dL (70-140); POTASSIUM,K 4.8 mmol/L (3.5-5.1); PROTEIN TOTAL,TP 7.7 g/dL (6.4-8.2); SODIUM,NA 138 mmol/L (136-145)
[2023-10-01 14:54] LABS: ESTIMATED GFR 46 mL/min (>=60)
[2023-10-01 15:04] LABS: B-TYPE NATRIURETIC PEPTIDE,BNP 118 pg/mL (0-100)
[2023-10-01 15:43] LABS: APPEARANCE,URINE SLIGHTLY CLOUDY (CLEAR); BILIRUBIN,URINE NEGATIVE (NEGATIVE); COLOR,URINE YELLOW (YELLOW); GLUCOSE,URINE NEGATIVE (NEGATIVE); KETONES,URINE NEGATIVE (NEGATIVE); LEUKOCYTE ESTERASE,URINE NEGATIVE (NEGATIVE); NITRITE,URINE NEGATIVE (NEGATIVE); OCCULT BLOOD,URINE SMALL (NEGATIVE); PROTEIN,URINE 30 mg/dL (NEGATIVE); UROBILINOGEN,URINE 0.2 E.U./dL (0.2-1.0)
[2023-10-01 16:11] VITALS: BP 109/67; PULSE 81
[2023-10-01 16:11] LABS: BACTERIA,URINE OCCASIONAL /HPF (NONE TO FEW); EPITHELIAL CELLS,URINE OCCASIONAL /LPF; WBC,URINE 0-5 /HPF (0-5)
== END 2023-10-01 16:35 ==
LOC: KA.ED 13:59
DX: R41.81 Age-related cognitive decline (principal); I25.10 Atherosclerotic heart disease of native coronary artery without angina pectoris; I13.0 Hypertensive heart and chronic kidney disease with heart failure and stage 1 through stage 4 chronic kidney disease, or unspecified chronic kidney disease; I50.9 Heart failure, unspecified; N18.30 Chronic kidney disease, stage 3 unspecified; E78.00 Pure hypercholesterolemia, unspecified; E21.3 Hyperparathyroidism, unspecified; E11.9 Type 2 diabetes mellitus without complications; Z79.82 Long term (current) use of aspirin; Z79.899 Other long term (current) drug therapy; Z79.4 Long term (current) use of insulin; Z90.49 Acquired absence of other specified parts of digestive tract; Z86.16 Personal history of COVID-19; Z87.891 Personal history of nicotine dependence
CPT/HCPCS: 36415; 70450; 71046; 80053; 81001; 83880; 84484; 85025; 93005; 93010; 99284; 99285